=== PATIENT | female | born 1955 | race Caucasian/White ===

== ENCOUNTER 2020-10-09 13:04 | Outpatient (REF) | payer MEDICARE, SELFPAY ==
[2020-10-09 13:59] LABS: MANUAL DIFF FLAG NO
[2020-10-09 14:16] LABS: Basophils Percent Auto 0.6 % (0-2); Eosinophils Absolute Auto 0.2 X10*3/uL (0.0-0.4); Eosinophils Percent Auto 2.5 % (0-4); Hemoglobin 11.9 g/dl (12.0-16.0); Imm Gran Abs Auto 0.03 X10*3/uL (0.00-0.03); Imm Gran Pct Auto 0.5 % (0.0-0.4); Lymphocytes Absolute Auto 1.9 X10*3/uL (1.2-4.9); Mean Corpuscular HGB Conc 33.1 g/dl (31.0-35.0); Mean Corpuscular Hemoglobin 30.9 pg (27.0-33.0); Mean Corpuscular Volume 93.5 fL (80-98); Mean Platelet Volume 10.3 fL (9.4-12.3); Monocytes Absolute Auto 0.8 X10*3/uL (0.1-1.2); Monocytes Percent Auto 11.6 % (2-11); Neutrophils Absolute Auto 3.5 X10*3/uL (2.0-8.3); Neutrophils Percent Auto 54.8 % (45-73); Platelet Count 257 X10*3/uL (160-400); Red Blood Count 3.85 X10*6/uL (4.20-5.50); Red Cell Distribution Width 12.6 % (11.0-16.0); White Blood Count 6.4 X10*3/uL (4.8-10.8)
[2020-10-09 14:41] LABS: Anion Gap 11 (12-20); Blood Urea Nitrogen 16 mg/dL (9-16); Calcium 9.4 mg/dL (8.4-10.2); Carbon Dioxide 33 mmol/L (22-29); Chloride 104 mmol/L (96-108); Cholesterol 138 mg/dL; Estimated Glomerular Filt Rate > 60; Glucose Fasting 94 mg/dL (60-99); HDL Cholesterol 54 mg/dL; LDL Cholesterol Calculated 68 mg/dl; Potassium 4.6 mmol/L (3.3-5.1); Sodium 143 mmol/L (135-145); Triglycerides 84 mg/dL
== END 2020-10-09 13:05 | disposition home or self-care (01) ==
LOC: HO.HMGCLDS 13:04
PROVIDERS: PCP Internal Medicine; Visit Provider Internal Medicine
DX: E78.9 Disorder of lipoprotein metabolism, unspecified (principal); F33.9 Major depressive disorder, recurrent, unspecified; H53.8 Other visual disturbances; G62.9 Polyneuropathy, unspecified; J44.9 Chronic obstructive pulmonary disease, unspecified
CPT/HCPCS: 36415; 80048; 80061; 85025

== ENCOUNTER 2020-11-22 10:31 | Outpatient (REF) | payer MEDICARE, SELFPAY ==
[2020-11-22 14:35] LABS: Anion Gap 13 (12-20); Blood Urea Nitrogen 16 mg/dL (9-16); Calcium 10.2 mg/dL (8.4-10.2); Carbon Dioxide 31 mmol/L (22-29); Chloride 103 mmol/L (96-108); Cholesterol 160 mg/dL; Estimated Glomerular Filt Rate > 60; Glucose Random 88 mg/dL (60-115); HDL Cholesterol 60 mg/dL; LDL Cholesterol Calculated 85 mg/dl; Potassium 4.7 mmol/L (3.3-5.1); Sodium 142 mmol/L (135-145); Triglycerides 79 mg/dL
== END 2020-11-22 10:32 | disposition home or self-care (01) ==
LOC: HO.HMGCLDS 10:31
PROVIDERS: PCP Internal Medicine; Visit Provider Internal Medicine Cardiovascular Disease
DX: I25.2 Old myocardial infarction (principal)
CPT/HCPCS: 36415; 80048; 80061

== ENCOUNTER → 2020-11-25 10:58 | Outpatient (BNVA) | payer MEDICARE, SELFPAY | PROVIDERS: PCP Internal Medicine; Visit Provider Internal Medicine | DX: J44.9 Chronic obstructive pulmonary disease, unspecified (principal); J30.9 Allergic rhinitis, unspecified; Z87.891 Personal history of nicotine dependence; Z79.899 Other long term (current) drug therapy | CPT/HCPCS: 99202 ==

== ENCOUNTER 2020-12-23 09:39 | Outpatient (REF) | payer MEDICARE, SELFPAY ==
--- NOTE | ~2020-12-23 | CT_ITS ---
EXAMINATION: CT CHEST SCREENING CLINICAL INFORMATION: Lung cancer screening COMPARISON: Previous CTA of the chest August 2016 and chest x-ray June 2017 TECHNIQUE: Multidetector volumetric CT imaging of the chest is performed without contrast using low dose technique. Additional 2D coronal and sagittal reformatted images and axial 3D maximum intensity projection (MIP) images are generated on the CT workstation. This CT examination was performed using dose optimization techniques as appropriate, variously including the following: *Automated exposure control *Adjustment of mA and/or kV according to patient size (this includes techniques or standardized protocols for targeted exams where dose is matched to indication/reason for exam; i.e. extremities or head) *Use of iterative reconstruction technique DLP: 48 mGy-cm FINDINGS: LUNGS: There is a 2 mm peripheral or subpleural left upper lobe nodule axial image 106 series 5. There is a 3 mm peripheral or subpleural left lower lobe nodule axial image 288 series 5. There are several adjacent clustered 1 to 2 mm left lower lobe peripheral nodules axial image 327 series 5. There is a 3 mm peripheral or subpleural right lower lobe nodule axial image 376 series 5. There is a 2 mm peripheral or subpleural left lower lobe nodule axial image 414 series 5. There is a 3 mm peripheral or subpleural right lower lobe nodule axial image 418 series 5. There is a 3 mm left lower lobe nodule axial image 422 series 5 and 426 series 5 There is a 3 mm peripheral or subpleural left lower lobe nodule axial image 333 series 5. These are similar to August 2016 exam.There is a 1 to 2 mm calcified right lower lobe nodule adjacent to the diaphragmatic pleural surface axial image 412 series 5. This is not definitely appreciated on previous CT from 2017. There is scarring or subsegmental atelectasis at the lung bases. No evidence of an endobronchial or endotracheal lesion is seen. MEDIASTINUM: There is coronary artery calcification. The mediastinum is otherwise normal. PLEURA: There is no pleural effusion. No pleural mass or thickening. AXILLA: No lymphadenopathy. UPPER ABDOMEN: Unremarkable OSSEOUS STRUCTURES: There is loss of height of the T6 T7 T9 and T11 vertebral body suggestive of mild compression fractures versus Schmorl's nodes. This is not appear appreciably changed from 2017 CTA. There are degenerative changes of the spine. CT/CT lung screening IMPRESSION: Small pulmonary nodules, largest measuring 3 mm. The majority are stable from previous CTA of the chest from 2017. Coronary artery calcification. ASSESSMENT: Lung-RADS category 2: Benign RECOMMENDATION: Annual low-dose chest CT follow-up recommended.
== END 2020-12-23 09:40 | disposition home or self-care (01) ==
LOC: HO.CT 09:39
PROVIDERS: Visit Provider Physician Assistant Medical
DX: J44.9 Chronic obstructive pulmonary disease, unspecified (principal); Z87.891 Personal history of nicotine dependence
CPT/HCPCS: 71271

== ENCOUNTER 2020-12-23 10:06 | Outpatient (REF) | payer MEDICARE, SELFPAY ==
--- NOTE | 2020-12-23 17:02 | PFT_ITS ---
INDICATION: COPD. SPIROMETRY: The FEV1 to FVC of 55% with an FEV1 of 1.57 L which is 54% predicted, an FVC of 2.83 L which is 74% predicted. There was a significant response to bronchodilators noted. The patient also has significant small airways disease. Maximum voluntary ventilation 48% predicted. LUNG VOLUMES: Total lung capacity 108% predicted with a residual volume of 157% predicted. DIFFUSION CAPACITY: DLCO 40% predicted. COMPARISONS: None. INTERPRETATION: There is an obstructive ventilatory defect consistent with moderate to severe COPD. The patient did have a significant response to bronchodilators noted and also has significant small airways disease. There is a moderate to severe decrease in the maximum voluntary ventilation secondary to deconditioning and also worsening dynamic inspiratory capacity. Lung volumes with significant air trapping due to the COPD. The patient does have a severe diffusion impairment secondary to emphysema and all other parenchymal lung conditions should be considered. Correction for hemoglobin is warranted. MD YVES Worthington/MODEliza / [phone]
== END 2020-12-23 10:07 | disposition home or self-care (01) ==
LOC: HO.RESP 10:06
PROVIDERS: PCP Internal Medicine; Visit Provider Internal Medicine
DX: J44.9 Chronic obstructive pulmonary disease, unspecified (principal); Z87.891 Personal history of nicotine dependence
CPT/HCPCS: 94060; 94727; 94729; 99212

== ENCOUNTER 2021-01-17 08:17 | Outpatient (REF) | payer OTHER, SELFPAY ==
--- NOTE | ~2021-01-17 | MM_ITS ---
EXAMINATION: BONE DENSITOMETRY CLINICAL INDICATION: Osteopenia. COMPARISON: Baseline BD dated 07/29/2007. TECHNIQUE: Using a [employer] DXA System (software version: 13.1) manufactured by [employer], dual-energy x-ray absorptiometry was performed of the lumbar spine and left hip. The images are of good technical quality. Summary results are attached. FINDINGS: AP SPINE L1-L2 (excluding L3 and L4): The data of L1-L4 has been changed to exclude the L3 and L4 vertebral bodies, because degenerative changes at these levels may cause overestimation of lumbar spine density. Current: BMD 0.891 g/cm2, Z-score -0.9, T-score -2.3, osteopenia, 3.3% decrease from baseline (<5% change is not significant). Baseline: BMD 0.921 g/cm2. LEFT FEMUR, NECK: Current: BMD 0.475 g/cm2, Z-score -2.7, T-score -4.1, osteoporosis. Baseline: BMD 0.779 g/cm2. LEFT FEMUR, TOTAL: Current: BMD 0.487 g/cm2, Z-score -3.0, T-score -4.1, osteoporosis, 34.9% decrease from baseline (<5% change is not significant). Baseline: BMD 0.748 g/cm2. IDENTIFIED RISK FACTORS: Menopause, history of fracture (adult). HISTORY OF FRACTURE: Wrist, hip, trauma. MEDICATIONS: Calcium, vitamin D. MM/XR DEXA axial skeleton IMPRESSION: 1. DIAGNOSIS: Osteoporosis based on the lowest T-score value of -4.1 in the femur neck and total femur applying World Health Organization criteria. 2. 10-YEAR FRACTURE RISK PREDICTION, FRAX: According to the guidelines, FRAX calculation should only be performed on patients in the osteopenia bone density category. Therefore, FRAX was not performed on this patient. 3. Treatment Recommendations: NOF guidelines recommend consideration for treatment in postmenopausal women and men age 50 and older presenting with the following: -A hip or vertebral (clinical or morphometric) fracture. -T-score less than or equal to -2.5 at the femoral neck or spine after appropriate evaluation to exclude secondary causes. -Low bone mass at the hip or spine and a 10-year fracture probability by FRAX of greater than or equal to 3% for hip fracture or greater than or equal to 20% for major osteoporotic fracture based on the [place] adapted WHO algorithm. 4. Other Recommendations: All treatment decisions require clinical judgment and consideration of individual patient factors, including patient preferences, comorbidities, previous drug use, risk factors not captured in the FRAX model (e.g. frailty, falls, vitamin D deficiency, increased bone turnover, interval significant decline in bone density) and possible under or overestimation of fracture risk by FRAX. Additional medical evaluation for secondary cause of low bone mineral density may be appropriate. FUTURE SCAN RECOMMENDATION: People with diagnosed cases of osteoporosis or at high risk for fracture should have regular bone mineral density tests. For patients eligible for Medicare, routine testing is allowed once every 2 years. The testing frequency can be increased to one year for patients who have rapidly progressing disease, those who are receiving or discontinuing medical therapy to restore bone mass, or have additional risk factors.
--- NOTE | ~2021-01-17 | MM_ITS ---
EXAMINATION: MM SCREENING DIGITAL BREAST TOMOSYNTHESIS, BILATERAL CLINICAL INFORMATION: Screening. Asymptomatic. The lifetime risk of breast cancer based on the Tyrer-Cuzick Model is 4%. COMPARISON: Mammography: 01/12/2019, 11/25/2017, 03/13/2011, 07/03/2010 TECHNIQUE: Digital breast tomosynthesis is performed in both the craniocaudal and mediolateral oblique views along with computer-aided detection (CAD). Synthesized 2D images are generated from the tomosynthesis. FINDINGS: The breasts are heterogeneously dense, which may obscure small masses (ACR BI-RADS breast composition Category c). There are no significant masses, abnormal calcifications, or other abnormalities. There is no developing density or interval mass or architectural abnormality. Biopsy clip marker again seen upper outer quadrant left breast. The axilla and skin contours are unremarkable. MM/MM tomosynthesis screening BI IMPRESSION: No mammographic evidence of malignancy. ASSESSMENT: BI-RADS 1: Negative RECOMMENDATION: Routine annual mammography screening. This patient's information was entered into a reminder system with a target due date for their next mammogram.
== END 2021-01-17 08:18 | disposition home or self-care (01) ==
LOC: HO.MAMMO 08:17
PROVIDERS: PCP Internal Medicine; Visit Provider Internal Medicine
DX: Z12.31 Encounter for screening mammogram for malignant neoplasm of breast (principal); Z13.820 Encounter for screening for osteoporosis; M85.80 Other specified disorders of bone density and structure, unspecified site; Z78.0 Asymptomatic menopausal state
CPT/HCPCS: 77063; 77067; 77080

== ENCOUNTER → 2021-05-07 12:22 | Outpatient (BNVA) | payer MEDICARE, SELFPAY | PROVIDERS: PCP Internal Medicine; Visit Provider Internal Medicine | DX: M81.0 Age-related osteoporosis without current pathological fracture (principal); E04.9 Nontoxic goiter, unspecified; E55.9 Vitamin D deficiency, unspecified | CPT/HCPCS: 99202 ==

== ENCOUNTER 2021-05-07 13:41 | Outpatient (REF) | payer MEDICARE, SELFPAY ==
[2021-05-07 15:01] LABS: Alanine Aminotransferase 20 U/L (0-31); Albumin Level 4.4 g/dL (3.5-5.0); Alkaline Phosphatase 65 U/L (39-117); Anion Gap 11 (12-20); Aspartate Amino Transferase 25 U/L (5-31); Bilirubin Total 0.5 mg/dL (0.0-1.0); Blood Urea Nitrogen 21 mg/dL (9-16); Calcium 10.5 mg/dL (8.4-10.2); Carbon Dioxide 32 mmol/L (22-29); Chloride 102 mmol/L (96-108); Estimated Glomerular Filt Rate > 60; Glucose Random 98 mg/dL (60-115); Phosphorus 4.5 mg/dL (2.7-4.5); Potassium 4.9 mmol/L (3.3-5.1); Sodium 140 mmol/L (135-145); Total Protein 7.3 g/dL (6.5-8.0)
[2021-05-07 15:23] LABS: Free T4 (Free Thyroxine) 0.91 ng/dL (0.71-1.85); Thyroid Stimulating Hormone 2.67 uIU/mL (0.32-4.0); Vitamin D 25-OH Total 48.3 ng/mL (>30)
[2021-05-09 09:32] LABS: Calcium (PTHI) 10.7 mg/dL (8.6-10.4); PTHI 22 pg/mL (14-64)
[2021-05-12 10:11] LABS: Alkaline Phosphatase Bone 10.7 mcg/L (5.6-29.0)
[2021-05-12 13:52] LABS: Prot Elec - Albumin 4.3 g/dL (3.8-4.8); Prot Elec - Alpha1 0.3 g/dL (0.2-0.3); Prot Elec - Alpha2 0.8 g/dL (0.5-0.9); Prot Elec - Beta 1 0.5 g/dL (0.4-0.6); Prot Elec - Beta 2 0.4 g/dL (0.2-0.5); Prot Elec - Total Protein 7.3 g/dL (6.1-8.1)
== END 2021-05-07 13:42 | disposition home or self-care (01) ==
LOC: HO.LAB 13:41
PROVIDERS: PCP Internal Medicine; Visit Provider Internal Medicine
DX: M81.0 Age-related osteoporosis without current pathological fracture (principal); E55.9 Vitamin D deficiency, unspecified
CPT/HCPCS: 36415; 80053; 82306; 83970; 84075; 84100; 84165; 84439; 84443

== ENCOUNTER 2021-05-18 | Outpatient (REF) | payer MEDICARE, SELFPAY ==
[2021-05-24 15:47] LABS: N-Telopeptide 47 (see note); NTXCreaRU 112 mg/dL (20-275)
== END 2021-05-18 00:01 | disposition home or self-care (01) ==
LOC: HO.LNP
PROVIDERS: Visit Provider Internal Medicine
DX: M81.0 Age-related osteoporosis without current pathological fracture (principal)
CPT/HCPCS: 82523

== ENCOUNTER 2021-05-20 12:43 | Outpatient (REF) | payer MEDICARE, SELFPAY ==
[2021-05-20 13:07] LABS: Total Volume 24 Hour Urine 1900 mL
[2021-05-20 13:16] LABS: Creatinine, 24Hr Urine 0.6 G/Day (1.0-2.0)
[2021-05-22 19:37] LABS: Calcium, 24 Hr Urine 154 mg/24 h; Calcium/Creatinine Ratio 261 mg/g creat (30-275); Creatinine 24Hr Urine 0.59 g/24 h (0.50-2.15)
== END 2021-05-20 12:44 | disposition home or self-care (01) ==
LOC: HO.LNP 12:43
PROVIDERS: Visit Provider Internal Medicine
DX: M81.0 Age-related osteoporosis without current pathological fracture (principal)
CPT/HCPCS: 82340; 82570

== ENCOUNTER 2021-06-10 09:52 | Outpatient (REF) | payer MEDICARE, SELFPAY ==
--- NOTE | ~2021-06-10 | US_ITS ---
EXAMINATION: US THYROID CLINICAL INFORMATION: Vitamin D deficiency, unspecified COMPARISON: Neck CT most recent August 2016 TECHNIQUE: Linear transducer santana-scale and color Doppler examination with attention to the region of the thyroid. FINDINGS: SIZE: Measurements of the thyroid lobes and nodules are given in sagittal, anteroposterior and transverse dimensions respectively. Right Thyroid Lobe: 4.14 x 1.60 x 1.0 cm, volume 3.5 mL. Parenchyma: The gland echotexture is homogeneous. Thyroid vascularity is normal. Left Thyroid Lobe: 3.86 x 1.54 x 1.25 cm, volume 3.9 mL. Parenchyma: The gland echotexture is homogeneous. Thyroid vascularity is normal. Isthmus: 0.40 cm in maximum AP dimension. Estimated total number of nodules greater than or equal to 1 cm: 0. Track Announcer nodules are described as follows: 1. Location: Right mid. Size: 0.38 x 0.28 x 0.29 cm, volume 0.02 mL. Nodule characteristics: Composition: Spongiform (0). Echogenicity: Shape: Margins: Echogenic Foci: ACR TI-RADS total points: 0 ACR TI-RADS category: 1 NODES: No lymphadenopathy is seen in the tissue surrounding the thyroid gland. US/US thyroid IMPRESSION: Small 3 x 4 mm right thyroid nodule. Otherwise unremarkable exam. According to ACR TI RADS criteria, no imaging follow-up is recommended. ACR TI-RADS RECOMMENDATION REFERENCE: Ultrasound-guided fine-needle aspiration, followup ultrasound, no further follow up. * TR1 (0 point) and TR 2 (2 points): No FNA or follow up * TR3 (3 points): FNA if more than or equal to 2.5 cm in maximum dimension, followup ultrasound in 1, 3 and 5 years if 1.5 to 2.4 cm in maximum dimension. * TR4 (4-6 points): FNA if more than or equal to 1.5 cm in maximum dimension, followup ultrasound in 1, 2, 3 and 5 years if 1 to 1.4 cm in maximum dimension. * TR5 (more than or equal to 7 points): FNA if more than or equal to 1 cm in maximum dimension, followup ultrasound every year for 5 years if 0.5 to 0.9 cm in maximum dimension. * TR3, TR4 or TR5 nodules that are below the size threshold for follow up receive no follow up.
== END 2021-06-10 09:53 | disposition home or self-care (01) ==
LOC: HO.HMGCX 09:52
PROVIDERS: PCP Internal Medicine; Visit Provider Internal Medicine
DX: E04.9 Nontoxic goiter, unspecified (principal); E55.9 Vitamin D deficiency, unspecified
CPT/HCPCS: 76536

== ENCOUNTER 2021-06-18 09:21 | Outpatient (REF) | payer MEDICARE, SELFPAY ==
--- NOTE | ~2021-06-18 | MM_ITS ---
EXAMINATION: BONE DENSITOMETRY CLINICAL INDICATION: Hyperparathyroidism. COMPARISON: Bone densitometry 01/17/2021. TECHNIQUE: Using a [employer] DXA System (software version: 13.1) manufactured by [employer], dual-energy x-ray absorptiometry was performed of the left forearm radius 33%. The images are of good technical quality. Summary results are attached. FINDINGS: LEFT FOREARM RADIUS 33%: BMD 0.792 g/cm2, Z-score 0.3, T-score -1.1, osteopenia. Prior: Forearm not previously measured. IDENTIFIED RISK FACTORS: Menopause, height loss, family history (parent hip fracture), history of fracture (adult), hyperparathyroid, osteoporosis, rheumatoid arthritis. HISTORY OF FRACTURE: Wrist, hip. MEDICATIONS: Calcium or multivitamin. Vitamin D. MM/XR DEXA appendicular skeleton IMPRESSION: Osteopenia in forearm based on the T-score value of -1.1 in the forearm radius 33% applying World Health Organization criteria. COMMENT: The bone densitometry exam 01/17/2021 showed osteoporosis based on the lowest T-score value of -4.1 in the total femur and femur neck applying World Health Organization criteria.
== END 2021-06-18 09:22 | disposition home or self-care (01) ==
LOC: HO.MAMMO 09:21
PROVIDERS: Visit Provider Internal Medicine
DX: Z13.820 Encounter for screening for osteoporosis (principal); M85.80 Other specified disorders of bone density and structure, unspecified site; E21.3 Hyperparathyroidism, unspecified; Z78.0 Asymptomatic menopausal state; Z87.81 Personal history of (healed) traumatic fracture; Z79.899 Other long term (current) drug therapy
CPT/HCPCS: 77081

== ENCOUNTER → 2021-07-07 14:54 | Outpatient (BNVA) | payer MEDICARE, SELFPAY | PROVIDERS: PCP Internal Medicine; Visit Provider Internal Medicine | DX: Z13.89 Encounter for screening for other disorder (principal) | CPT/HCPCS: Q3014 ==

== ENCOUNTER 2021-07-14 14:43 | Outpatient (REF) | payer MEDICARE, SELFPAY ==
[2021-07-14 16:38] LABS: Alanine Aminotransferase 20 U/L (0-31); Albumin Level 4.3 g/dL (3.5-5.0); Alkaline Phosphatase 59 U/L (39-117); Anion Gap 13 (12-20); Aspartate Amino Transferase 27 U/L (5-31); Bilirubin Total 0.6 mg/dL (0.0-1.0); Blood Urea Nitrogen 16 mg/dL (9-16); Calcium 10.8 mg/dL (8.4-10.2); Carbon Dioxide 32 mmol/L (22-29); Chloride 101 mmol/L (96-108); Estimated Glomerular Filt Rate > 60; Glucose Random 87 mg/dL (60-115); Phosphorus 4.4 mg/dL (2.7-4.5); Potassium 5.4 mmol/L (3.3-5.1); Sodium 141 mmol/L (135-145); Total Protein 6.9 g/dL (6.5-8.0)
[2021-07-14 16:59] LABS: Free T4 (Free Thyroxine) 0.94 ng/dL (0.71-1.85); Thyroid Stimulating Hormone 2.52 uIU/mL (0.32-4.0); Vitamin D 25-OH Total 46.5 ng/mL (>30)
[2021-07-15 15:56] LABS: Calcium (PTHI) 10.5 mg/dL (8.6-10.4); PTHI 23 pg/mL (14-64)
== END 2021-07-14 14:44 | disposition home or self-care (01) ==
LOC: HO.HMGCLDS 14:43
PROVIDERS: PCP Internal Medicine; Visit Provider Internal Medicine
DX: M81.0 Age-related osteoporosis without current pathological fracture (principal); E55.9 Vitamin D deficiency, unspecified; E21.3 Hyperparathyroidism, unspecified
CPT/HCPCS: 36415; 80053; 82306; 83970; 84100; 84439; 84443

== ENCOUNTER 2021-08-04 15:11 | Outpatient (REF) | payer MEDICARE, SELFPAY ==
[2021-08-04 17:09] LABS: Anion Gap 11 (12-20); Blood Urea Nitrogen 15 mg/dL (9-16); Calcium 10.4 mg/dL (8.4-10.2); Carbon Dioxide 34 mmol/L (22-29); Chloride 103 mmol/L (96-108); Estimated Glomerular Filt Rate > 60; Glucose Random 86 mg/dL (60-115); Sodium 143 mmol/L (135-145)
== END 2021-08-04 15:12 | disposition home or self-care (01) ==
LOC: HO.HMGCLDS 15:11
PROVIDERS: PCP Internal Medicine; Visit Provider Internal Medicine
DX: M81.0 Age-related osteoporosis without current pathological fracture (principal)
CPT/HCPCS: 36415; 80048

== ENCOUNTER → 2021-08-25 08:58 | Outpatient (BNVA) | payer MEDICARE, SELFPAY | PROVIDERS: PCP Internal Medicine; Visit Provider Internal Medicine | CPT/HCPCS: Q3014 ==

== ENCOUNTER 2021-10-29 13:28 | Outpatient (REF) | payer MEDICARE, SELFPAY ==
[2021-10-29 17:31] LABS: Alanine Aminotransferase 22 U/L (0-31); Albumin Level 4.2 g/dL (3.5-5.0); Alkaline Phosphatase 73 U/L (39-117); Anion Gap 12 (12-20); Aspartate Amino Transferase 23 U/L (5-31); Bilirubin Total 0.4 mg/dL (0.0-1.0); Blood Urea Nitrogen 22 mg/dL (9-16); Calcium 10.1 mg/dL (8.4-10.2); Carbon Dioxide 28 mmol/L (22-29); Chloride 102 mmol/L (96-108); Cholesterol 153 mg/dL; Estimated Glomerular Filt Rate > 60; Glucose Fasting 85 mg/dL (60-99); HDL Cholesterol 47 mg/dL; LDL Cholesterol Calculated 60 mg/dl; Potassium 5.1 mmol/L (3.3-5.1); Sodium 137 mmol/L (135-145); Total Protein 7.1 g/dL (6.5-8.0); Triglycerides 232 mg/dL
== END 2021-10-29 13:29 | disposition home or self-care (01) ==
LOC: HO.HMGCLDS 13:28
PROVIDERS: Visit Provider Internal Medicine
DX: Z00.01 Encounter for general adult medical examination with abnormal findings (principal); F33.9 Major depressive disorder, recurrent, unspecified; G62.9 Polyneuropathy, unspecified; J45.909 Unspecified asthma, uncomplicated; M81.0 Age-related osteoporosis without current pathological fracture; E78.9 Disorder of lipoprotein metabolism, unspecified
CPT/HCPCS: 36415; 80053; 80061

== ENCOUNTER 2021-11-12 12:08 | Outpatient (REF) | payer MEDICARE, SELFPAY ==
--- NOTE | ~2021-11-12 | XR_ITS ---
EXAMINATION: X-RAY LEFT ANKLE X-RAY LEFT FOOT CLINICAL INFORMATION: Injury COMPARISON: None TECHNIQUE: Ankle 3 views. Foot 3 views. FINDINGS: Ankle: No visible acute fracture or dislocation. Ankle mortise is congruent. Talar dome, anterior process of the calcaneus intact. Dorsal spurring at the talonavicular joint. Mild lateral ankle soft tissue swelling. Bones appear osteopenic. Foot: No visible acute fracture or dislocation. Alignment is anatomic. No significant arthropathy seen. No abnormal soft tissue calcification. XR/XR foot LT 2V IMPRESSION: No radiographically evident acute fracture..
--- NOTE | ~2021-11-12 | XR_ITS ---
EXAMINATION: X-RAY LEFT ANKLE X-RAY LEFT FOOT CLINICAL INFORMATION: Injury COMPARISON: None TECHNIQUE: Ankle 3 views. Foot 3 views. FINDINGS: Ankle: No visible acute fracture or dislocation. Ankle mortise is congruent. Talar dome, anterior process of the calcaneus intact. Dorsal spurring at the talonavicular joint. Mild lateral ankle soft tissue swelling. Bones appear osteopenic. Foot: No visible acute fracture or dislocation. Alignment is anatomic. No significant arthropathy seen. No abnormal soft tissue calcification. XR/XR ankle LT 2V IMPRESSION: No radiographically evident acute fracture..
== END 2021-11-12 12:09 | disposition home or self-care (01) ==
LOC: HO.HMGCX 12:08
PROVIDERS: PCP Internal Medicine; Visit Provider Internal Medicine
DX: S99.922A Unspecified injury of left foot, initial encounter (principal); S99.912A Unspecified injury of left ankle, initial encounter
CPT/HCPCS: 73600; 73620

== ENCOUNTER 2021-12-22 09:26 | Outpatient (REF) | payer MEDICARE, SELFPAY ==
[2021-12-22 16:56] LABS: Alanine Aminotransferase 23 U/L (0-31); Albumin Level 4.3 g/dL (3.5-5.0); Alkaline Phosphatase 73 U/L (39-117); Anion Gap 12 (12-20); Aspartate Amino Transferase 23 U/L (5-31); Bilirubin Total 0.4 mg/dL (0.0-1.0); Blood Urea Nitrogen 14 mg/dL (9-16); Carbon Dioxide 29 mmol/L (22-29); Chloride 102 mmol/L (96-108); Estimated Glomerular Filt Rate > 60; Glucose Random 72 mg/dL (60-115); Phosphorus 4.5 mg/dL (2.7-4.5); Potassium 5.4 mmol/L (3.3-5.1); Sodium 138 mmol/L (135-145); Total Protein 7.4 g/dL (6.5-8.0)
[2021-12-22 17:17] LABS: Vitamin D 25-OH Total 48.8 ng/mL (>30)
[2021-12-23 15:42] LABS: PTHI 52 pg/mL (16-77)
== END 2021-12-22 09:27 | disposition home or self-care (01) ==
LOC: HO.HMGCLDS 09:26
PROVIDERS: PCP Internal Medicine; Visit Provider Internal Medicine
DX: M81.0 Age-related osteoporosis without current pathological fracture (principal); E55.9 Vitamin D deficiency, unspecified
CPT/HCPCS: 36415; 80053; 82306; 83970; 84100; Q3014

== ENCOUNTER 2021-12-26 08:11 | Outpatient (REF) | payer MEDICARE, SELFPAY ==
[2021-12-26 12:07] LABS: Alanine Aminotransferase 17 U/L (0-31); Alkaline Phosphatase 69 U/L (39-117); Anion Gap 13 (12-20); Aspartate Amino Transferase 20 U/L (5-31); Bilirubin Total 0.4 mg/dL (0.0-1.0); Blood Urea Nitrogen 14 mg/dL (9-16); Calcium 9.6 mg/dL (8.4-10.2); Carbon Dioxide 28 mmol/L (22-29); Chloride 102 mmol/L (96-108); Estimated Glomerular Filt Rate > 60; Glucose Random 98 mg/dL (60-115); Potassium 4.9 mmol/L (3.3-5.1); Sodium 138 mmol/L (135-145); Total Protein 6.8 g/dL (6.5-8.0)
== END 2021-12-26 08:12 | disposition home or self-care (01) ==
LOC: HO.HMGCLDS 08:11
PROVIDERS: Absent Provider Internal Medicine; PCP Internal Medicine; Visit Provider Internal Medicine
DX: M81.0 Age-related osteoporosis without current pathological fracture (principal)
CPT/HCPCS: 36415; 80053

== ENCOUNTER → 2022-06-04 10:33 | Outpatient (BNVA) | payer MEDICARE, SELFPAY | PROVIDERS: PCP Internal Medicine; Visit Provider Internal Medicine | DX: J45.40 Moderate persistent asthma, uncomplicated (principal); J44.9 Chronic obstructive pulmonary disease, unspecified; J30.9 Allergic rhinitis, unspecified; Z87.891 Personal history of nicotine dependence | CPT/HCPCS: 99212 ==

== ENCOUNTER 2022-06-20 15:44 | Outpatient (REF) | payer MEDICARE, SELFPAY ==
[2022-06-20 17:32] LABS: Influenza A PCR NEGATIVE (Negative); Influenza B PCR NEGATIVE (Negative); Resp Syncy Virus RNA Qual PCR NEGATIVE (Negative); SARS COV2 PCR INHOUSE NEGATIVE (Negative)
== END 2022-06-20 15:45 | disposition home or self-care (01) ==
LOC: HO.LNP 15:44
PROVIDERS: Visit Provider Physician Assistant
DX: Z20.822 Contact with and (suspected) exposure to COVID-19 (principal); B34.9 Viral infection, unspecified
CPT/HCPCS: 0241U

== ENCOUNTER 2022-08-05 08:29 | Outpatient (REF) | payer MEDICARE, SELFPAY ==
--- NOTE | ~2022-08-05 | MM_ITS ---
EXAMINATION: MM SCREENING DIGITAL BREAST TOMOSYNTHESIS, BILATERAL CLINICAL INFORMATION: Screening. Asymptomatic. The lifetime risk of breast cancer based on the Tyrer-Cuzick Model is 5%. COMPARISON: Mammography: 01/17/2021, 01/12/2019, 11/25/2017 TECHNIQUE: Digital breast tomosynthesis is performed in both the craniocaudal and mediolateral oblique views along with computer-aided detection (CAD). Synthesized 2D images are generated from the tomosynthesis. FINDINGS: The breasts are heterogeneously dense, which may obscure small masses (ACR BI-RADS breast composition Category c). Parenchymal pattern is similar to prior studies and there is no developing density or interval mass or architectural abnormality. No abnormal calcifications. Biopsy clip marker again seen mid upper outer left breast. The axilla and skin contours are unremarkable. No significant changes. MM/MM tomosynthesis screening BI IMPRESSION: No mammographic evidence of malignancy. ASSESSMENT: BI-RADS 1: Negative RECOMMENDATION: Routine annual mammography screening. This patient's information was entered into a reminder system with a target due date for their next mammogram.
== END 2022-08-05 08:30 | disposition home or self-care (01) ==
LOC: HO.MAMMO 08:29
PROVIDERS: PCP Internal Medicine; Visit Provider Internal Medicine
DX: Z12.31 Encounter for screening mammogram for malignant neoplasm of breast (principal)
CPT/HCPCS: 77063; 77067

== ENCOUNTER 2022-09-09 10:29 | Outpatient (REF) | payer MEDICARE, SELFPAY ==
[2022-09-09 11:24] LABS: MANUAL DIFF FLAG NO
[2022-09-09 11:32] LABS: Basophils Percent Auto 0.4 % (0-2); Eosinophils Absolute Auto 0.3 X10*3/uL (0.0-0.4); Eosinophils Percent Auto 4.9 % (0-4); Hematocrit 35.3 % (37.0-47.0); Hemoglobin 11.4 g/dl (12.0-16.0); Imm Gran Abs Auto 0.01 X10*3/uL (0.00-0.03); Imm Gran Pct Auto 0.2 % (0.0-0.4); Lymphocytes Absolute Auto 1.4 X10*3/uL (1.2-4.9); Lymphocytes Percent Auto 23.8 % (20-40); Mean Corpuscular HGB Conc 32.3 g/dl (31.0-35.0); Mean Corpuscular Hemoglobin 30.1 pg (27.0-33.0); Mean Corpuscular Volume 93.1 fL (80.0-98.0); Mean Platelet Volume 10.3 fL (9.4-12.3); Monocytes Absolute Auto 0.6 X10*3/uL (0.1-1.2); Monocytes Percent Auto 10.6 % (2-11); Neutrophils Absolute Auto 3.4 x10*3/uL (2.0-8.3); Neutrophils Percent Auto 60.1 % (45-73); Platelet Count 290 X10*3/uL (160-400); Red Blood Count 3.79 X10*6/uL (4.20-5.50); Red Cell Distribution Width 13.3 % (11.0-16.0); White Blood Count 5.7 X10*3/uL (4.8-10.8)
[2022-09-09 12:12] LABS: Alanine Aminotransferase 18 U/L (0-31); Alkaline Phosphatase 62 U/L (39-117); Anion Gap 16 (12-20); Aspartate Amino Transferase 23 U/L (5-31); Bilirubin Total 0.3 mg/dL (0.0-1.0); Blood Urea Nitrogen 18 mg/dL (9-16); Calcium 9.2 mg/dL (8.4-10.2); Carbon Dioxide 24 mmol/L (22-29); Chloride 107 mmol/L (96-108); Estimated Glomerular Filt Rate > 60; Glucose Random 106 mg/dL (60-115); Potassium 4.7 mmol/L (3.3-5.1); Sodium 142 mmol/L (135-145); Total Protein 6.4 g/dL (6.5-8.0)
[2022-09-10 05:48] LABS: LDL Cholesterol Direct 70 mg/dL (<100)
== END 2022-09-09 10:30 | disposition home or self-care (01) ==
LOC: HO.HMGCLDS 10:29
PROVIDERS: PCP Internal Medicine; Visit Provider Internal Medicine
DX: E78.9 Disorder of lipoprotein metabolism, unspecified (principal); F33.9 Major depressive disorder, recurrent, unspecified; J45.909 Unspecified asthma, uncomplicated; M81.0 Age-related osteoporosis without current pathological fracture; N39.3 Stress incontinence (female) (male); I10 Essential (primary) hypertension
CPT/HCPCS: 36415; 80053; 83721; 85025

== ENCOUNTER 2023-02-20 14:10 | Outpatient (AMB) | payer MEDICARE, SELFPAY ==
--- NOTE | 2023-02-20 14:12 | AM.OFFWIN_ITS ---
Intake Vital Signs 02/20/23 14:13 Height 5 ft 8 in BP 132/78 Blood Pressure Location Lt brachial Position Sitting Pulse 65 Pulse Source Pulse Oximeter Temp 97.9 F Temp Source Temporal Artery Scan Pulse Oximetry (%) 99 Oxygen Delivery Method Room Air Intake Visit Reasons: EST/left knee pain Intake Note: pt is here for left knee pain due to fall. suspects she broken or sprained something Patient Tobacco Use Status: Former Tobacco user Quit Date: Over 3 years Allergies ENVIROMENTAL Allergy (Unknown, Uncoded 02/20/23 14:13) WHEEZING,COUGH Do you need a note to return to daycare/school/sports/work: No HPI HPI Comments History of Present Illness Details This is a 67-year-old female who presents to the office today for sick visit. Patient complaining of persistent left knee pain and some calf swelling following an injury that occurred 2 weeks ago. Patient states she tripped and fell while on a pool deck and landed on her left hand and left knee. Patient states her left hand was swollen and bruised, but this has resolved and she has no residual left hand pain. She states that her left knee is still painful, mostly with weight-bearing and ambulation. She denies any numbness/weakness/paresthesias of her extremities. She otherwise feels well without chest pain, shortness of breath, fever/chills, abdominal pain, or nausea/vomiting/diarrhea. 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 Brother No problems noted. Sister No problems noted. Son No problems noted. Daughter No problems noted. Social History Housing: Apartment Alcohol intake: former Year quit: 2017 Patient Tobacco Use Status: Former Tobacco user Quit Date: Over 3 years Tobacco use type: Cigarette Years Smoked: 45 (onset 16yo, quit ~2017) e-Cigarette/Vaping Use: Never Used Substance Use Type: Marijuana service: No Current occupational status: disabled Cognitive needs: No Hearing needs: No Vision needs: No Review of Systems Const All systems reviewed & are unremarkable except as noted in HPI and below Reports no additional complaints Eyes Reports no additional complaints ENT Reports no additional complaints Card Reports no additional complaints Resp Reports no additional complaints GI Reports no additional complaints Reports no additional complaints Musc Reports no additional complaints, Reports arthralgias and Reports joint swelling Skin/Breast Reports system reviewed and no additional complaints, except as documented Neuro Reports no additional complaints Psych Reports no additional complaints Endo Reports no additional complaints Genaro/Lymph Reports no additional complaints Aller/Immun Reports no additional complaints Physical Exam Vital Signs: Last Vital Signs Temp 97.9 F 02/20/23 14:13 Pulse 65 02/20/23 14:13 BP 132/78 02/20/23 14:13 Pulse Ox 99 02/20/23 14:13 Oxygen Delivery Method Room Air 02/20/23 14:13 Const General: cooperative, healthy appearing, no acute distress and well developed Orientation/consciousness: patient oriented x3 HEENT Head: Yes normal to inspection Ears: hearing grossly normal bilaterally General nose exam: Normal external nose present Face and sinus: Yes normal facial exam Mouth: Normal oral and palatal mucosa present Eyes General: appearance normal, both eyes and all related structures Pupils: Equal, round and reactive pupils present EOM: EOMs intact bilaterally Resp Effort & Inspection: normal respiratory effort and no respiratory distress Auscultation: clear to auscultation bilaterally Cardio Rate: regular rate Rhythm: regular rhythm Heart sounds: no gallops, no murmurs and no rubs Peripheral pulses: Peripheral pulses 2+ throughout GI Inspection: No distended Palpation (GI): Soft to palpation and nontender Auscultation: normal bowel sounds Skin General skin exam: no rashes or lesions noted Neuro General: patient oriented x3 Cranial nerves: Yes CN's II-XII intact bilaterally and Yes Equal, round and reactive pupils present Gait exam (Neuro): Normal gait present Motor exam (neuro): 5/5 motor strength present throughout Extrem Other: Tenderness to deep palpation of the lateral joint space of the left knee. No significant joint effusion or ecchymosis noted. Patient has full range of motion of the left knee with some pain. No erythema of the left knee. Her left calf is greater in circumference when compared to her right calf. No tenderness to palpation of the calf. Negative Homans sign. General: Yes full ROM Psych Appearance: grossly normal Mental Status: mental status grossly normal Assessment & Plan Assessment & Plan (1) Right knee pain: Code(s): M25.561 - Pain in right knee Plan: This is a 67-year-old female who presents to the office with left knee pain following an injury that occurred 2 weeks ago. On physical examination, patient has tenderness to deep palpation of the lateral joint space of the left knee without joint effusion or ecchymosis. History and physical most consistent with contusion versus fracture of the right knee. Septic arthritis is unlikely at this time given no systemic symptoms, fever/chills, or erythema of the knee and she has full range of motion of the knee. X-ray of the right knee was obtained to evaluate for foreign body versus fracture. Recommend rest/activity modification, ice to the area, compression and elevation of the extremity. Continue with acetaminophen/ibuprofen for pain management as long as patient has no medical contraindications. Patient was instructed to take 600-800 mg of ibuprofen 3 times daily to help with inflammation. Patient was advised to follow-up year ago to there or go to the emergency room if she were to develop persistent/worsening symptoms, swelling of the right knee, erythema of the r ight knee, or systemic symptoms including fevers or chills. Patient verbalized understanding and is agreeable with the plan. (2) Calf swelling: Code(s): M79.89 - Other specified soft tissue disorders Plan: Of note, the left calf is greater in circumference than the right calf. Negative Crow sign. DVT cannot be ruled out. Doppler ultrasound of the left lower extremity was ordered to rule out DVT but unfortunately ultrasound is not available today. I recommended patient proceed directly to the emergency room for an ultrasound to rule out DVT but patient declines at this time. Patient is alert and oriented x4 and she has the medical competence to make medical decisions for herself. I explained that DVT can travel to her lungs and cause a pulmonary embolism, which could be detrimental. Patient still declines going to the emergency room. Patient agrees to go directly to the emergency room if she were to develop worsening left calf swelling or calf pain. Patient verbalized understanding and is agreeable with the plan. Plan Orders: Orders US venous duplex LE LT Today M79.89 - Other specified soft tissue disorders XR knee LT 2V Today M25.569 - Pain in unspecified knee Coding Level of Care Code Est Pt Level 3 (86345) Diagnoses Right knee pain M25.561 Calf swelling M79.89
[2023-02-20 14:13] VITALS: BP 132/78; PULSE 65; TEMP 36.6; O2SAT 99
== END 2023-02-20 14:40 | disposition home or self-care (01) ==
PROVIDERS: PCP Internal Medicine; Visit Provider Physician Assistant Medical
DX: M25.561 Pain in right knee (principal); M79.89 Other specified soft tissue disorders
CPT/HCPCS: 99051; 99213

== ENCOUNTER 2023-02-20 14:27 | Outpatient (REF) | payer MEDICARE, SELFPAY ==
--- NOTE | ~2023-02-20 | XR_ITS ---
EXAMINATION: XR KNEE, LEFT CLINICAL INFORMATION: Reason for Exam M25.569 - Pain in unspecified knee COMPARISON: None TECHNIQUE: 4 views of the knee FINDINGS: No acute fracture or dislocation. Moderate degenerative changes of the knee with loss of medial compartment joint space.. No joint effusion. Atherosclerotic vascular calcification. XR/XR knee LT 2V IMPRESSION: * No acute osseous abnormality. * Moderate degenerative changes of the knee.
== END 2023-02-20 14:28 | disposition home or self-care (01) ==
LOC: HO.HMGCX 14:27
PROVIDERS: Visit Provider Physician Assistant Medical
DX: M25.562 Pain in left knee (principal)
CPT/HCPCS: 73560

== ENCOUNTER 2023-03-17 09:34 | Outpatient (AMB) | payer MEDICARE, SELFPAY ==
[2023-03-17 09:35] VITALS: BP 128/76; PULSE 69; O2SAT 98; BMI 22.2
--- NOTE | 2023-03-17 09:35 | MHC.PC.OV ---
Vital Signs 03/17/23 09:35 Height 5 ft 8 in Weight 146 lb 3 oz BMI 22.2 BP 128/76 Blood Pressure Location Rt brachial Position Sitting Pulse 69 Pulse Source Pulse Oximeter Pulse Oximetry (%) 98 Oxygen Delivery Method Room Air Intake Visit Reasons: 3 month follow up after labs Allergies ENVIROMENTAL Allergy (Unknown, Uncoded 02/20/23 14:13) WHEEZING,COUGH Medication List - Last Reconciled 03/17/23 by Teressa Hendrix MD albuterol sulfate 90 mcg/actuation 2 puffs PO Q4-6H PRN aspirin (Adult Low Dose Aspirin) 81 mg PO .every other day atorvastatin 40 mg PO DAILY 90 days budesonide-formoterol 160-4.5 mcg/actuation (Symbicort) 2 puffs inhalation BID 30 days fluticasone propionate 50 mcg/actuation (Flonase Allergy Relief) 1 spray intranasal BID 30 days gabapentin 300 mg PO TID 90 days lisinopril 5 mg PO DAILY 90 days nz-nsr-dgsrd acid-lutein 400-250 mcg (Centrum Silver) 2 tabs PO DAILY venlafaxine ER 75 mg PO DAILY 90 days Tobacco use date assessed: 03/17/23 Fall risk assessment: 1 Fall in past year Last assessed Fall Risk: 03/17/23 Dental Screening Dental Screen Date: 03/17/23 Did you have a dental visit in the last 12 months?: No Did you have a dental problem in the last 6 months where you did not have access to dental care?: No Was dental information given to patient?: No HPI 3 month follow up after labs HPI Details Patient is 67-year-old female came in today for her regular follow-up appointment Patient was was to her labs for this visit she forgot Patient tells me that few days ago she bumped her 5th right toe with coffee table and it is still swollen However she is able to put pressure on it and is able to walk Patient is almost blind in her right eye and has a very blurry vision in the left eye secondary to retinal detachment. I have ordered x-ray of her toe it is healing gradually. She also have a lot of telangiectasias on her face with a history of alcoholism for years She should see Dermatology once a year for skin cancer screening Patient had colonoscopy June of 2019 she is due for repeat colonoscopy as per note Message sent to Gastroenterology to book appointment Cardiology Dr. Ewing Pulmonary Dr. Foley, Using all her inhalers reviews are through PCP office now as patient has not seen Dr. Foley in a while She is smoking marijuana, it helps her with her peripheral neuropathy Osteoporosis and goiter management through endocrinology [facility] Neuropathy:? 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 Brother No problems noted. Sister No problems noted. Son No problems noted. Daughter No problems noted. Social History Housing: Apartment Alcohol intake: former Year quit: 2017 Patient Tobacco Use Status: Former Tobacco user Quit Date: Over 3 years Tobacco use type: Cigarette Years Smoked: 45 (onset 16yo, quit ~2016) e-Cigarette/Vaping Use: Never Used Substance Use Type: Marijuana service: No Current occupational status: disabled Cognitive needs: No Hearing needs: No Vision needs: Yes Questionnaire PHQ-9 Over the last 2 weeks, how often have you been bothered by any of the following problems? 1. Little interest or pleasure in doing things: several days 2. Feeling down, depressed, or hopeless: not at all 3. Trouble falling or staying asleep, or sleeping too much: several days 4. Feeling tired or having little energy: several days 5. Poor appetite or overeating: several days 6. Feeling bad about yourself - or that you are a failure or have let yourself or your family down: not at all 7. Trouble concentrating on things, such as reading the newspaper or watching television: several days 8. Moving or speaking so slowly that other people could have noticed. Or the opposite - being so fidgety or restless that you have been moving around a lot more than usual: not at all 9. Thoughts that you would be better off or of hurting yourself in some way: not at all Total score: 5 Depression Screening Interpretation: Negative 00481 - PHQ-9 Billing: Yes Source: Developed by Drs. Estrada Fish, Kassidy Emery, Bossman Castellanos and colleagues, with an educational jaswant from [email or web address]. Thrive Questionnaire Date Thrive assessed: 09/09/22 AUDIT C Alcohol Use Questionnaire (AUDIT-C) 1. How often do you have a drink containing alcohol?: Never 3. How often do you have six or more drinks on one occasion?: Never Total Score: 0 Score Reviewed/Action Taken: Yes ZOLTAN-7 AMB Questionnaire ZOLTAN-7 Date ZOLTAN - 7 assessed: 09/09/22 Source: Developed by Drs. Estrada Fish, Kassidy Emery, Bossman Castellanos and colleagues, with an educational jaswant from [email or web address]. Review of Systems Const Denies chills and Denies fever(s) ENT Denies epistaxis and Denies nasal discharge Card Denies chest pain Resp Denies chest congestion, Denies cough and Denies hemoptysis GI Denies diarrhea and Denies nausea Skin/Breast Denies rash Neuro Reports no additional complaints Psych Reports no additional complaints Endo Reports no additional complaints Physical exam (Primary Care) Vital Signs: Last Vital Signs Pulse 69 03/17/23 09:35 BP 128/76 03/17/23 09:35 Pulse Ox 98 03/17/23 09:35 Oxygen Delivery Method Room Air 03/17/23 09:35 BMI result Body Mass Index 22.2 Tobacco/Smoking Status: Tobacco use Status Tobacco use date assessed 03/17/23 03/17/23 09:44 Patient Tobacco Use Status Former Tobacco user 03/17/23 09:37 Tobacco use type Cigarette 03/17/23 09:37 e-Cigarette/Vaping Use Never Used 03/17/23 09:37 Depression Screening Interpretation: Negative Thrive Assessment: Date of Thrive Assessment Date Thrive assessed 09/09/22 03/17/23 09:37 Const General: cooperative, comfortable and no acute distress Orientation/consciousness: patient oriented x3 HENMT Head: Yes normocephalic Eyes General: appearance normal, both eyes and all related structures Neck Neck: Yes supple Resp Effort & Inspection: normal respiratory effort, no cough and no stridor Cardio Rhythm: regular rhythm Heart sounds: S1 normal heart sound present and S2 normal heart sound present Skin General skin exam: turgor normal Neuro Other: Sensory grossly diminished feet, uses cane for ambulation General: patient oriented x3, tone normal and moves all extremities Extrem Right lower extremity: no edema Left lower extremity: no edema Ankle/foot/toe images: 1. Swollen tender to pressure Assessment and Plan Assessment & Plan (1) Peripheral neuropathy: Code(s): G62.9 - Polyneuropathy, unspecified Qualifiers: Peripheral neuropathy type: polyneuropathy, other Qualified Code(s): G62.89 - Other specified polyneuropathies (2) COPD (chronic obstructive pulmonary disease): Comment: Patient has moderately severe obstructive airway disorder. Has been quite stable with her current regimen. [place] : Symbicort 160-4.52 puffs b.i.d. regularly. ProAir HFA 2 puffs Q 6 hours p.r.n.. For Cough use cough drops as needed. Code(s): J44.9 - Chronic obstructive pulmonary disease, unspecified (3) Lipid disorder: Code(s): E78.9 - Disorder of lipoprotein metabolism, unspecified (4) Depression, major, recurrent: Code(s): F33.9 - Major depressive disorder, recurrent, unspecified Qualifiers: Active/Remission status: in full remission Qualified Code(s): F33.42 - Major depressive disorder, recurrent, in full remission (5) Stress incontinence: Code(s): N39.3 - Stress incontinence (female) (male) (6) Age related osteoporosis: Code(s): M81.0 - Age-related osteoporosis without current pathological fracture (7) Retinal detachment: Code(s): H33.20 - Serous retinal detachment, unspecified eye (8) Vitamin D deficiency: Code(s): E55.9 - Vitamin D deficiency, unspecified (9) Hypertension, essential: Code(s): I10 - Essential (primary) hypertension (10) Injury of toe on right foot: Code(s): S99.921A - Unspecified injury of right foot, initial encounter (11) Cerebellar atrophy: Comment: Evaluated by Neurology Code(s): G31.9 - Degenerative disease of nervous system, unspecified (12) Asthma, moderate: Comment: Patient has asthma/COPD overlap syndrome. TX: See under COPD Code(s): J45.909 - Unspecified asthma, uncomplicated Qualifiers: Asthma complication type: uncomplicated Asthma persistence: persistent Qualified Code(s): J45.40 - Moderate persistent asthma, uncomplicated (13) Allergic rhinitis: Comment: It is mild with to seasonal exacerbations. Using Flonase and Cetrizine 10 mg once a day only p.r.n.. Code(s): J30.9 - Allergic rhinitis, unspecified Plan Patient is 67-year-old female came in today for her regular follow-up appointment Patient was was to her labs for this visit she forgot Patient tells me that few days ago she bumped her 5th right toe with coffee table and it is still swollen However she is able to put pressure on it and is able to walk Patient is almost blind in her right eye and has a very blurry vision in the left eye secondary to retinal detachment. I have ordered x-ray of her toe it is healing gradually. She also have a lot of telangiectasias on her face with a history of alcoholism for years She should see Dermatology once a year for skin cancer screening Patient had colonoscopy June of 2019 she is due for repeat colonoscopy as per note Message sent to Gastroenterology to book appointment Cardiology Dr. Ewing Pulmonary Dr. Foley, Using all her inhalers reviews are through PCP office now as patient has not seen Dr. Foley in a while She is smoking marijuana, it helps her with her peripheral neuropathy Osteoporosis and goiter management through endocrinology [facility] Neuropathy:? Taking gabapentin For anxiety patient is on venlafaxine 75 mg Atorvastatin for lipid control Follow-up 3 months Orders: Orders Comprehensive Met. Panel Today E55.9 - Vitamin D deficiency, unspecified, E78.9 - Disorder of lipoprotein metabolism, unspecified, F33.9 - Major depressive disorder, recurrent, unspecified, G62.9 - Polyneuropathy, unspecified, H33.20 - Serous retinal detachment, unspecified eye, I10 - Essential (primary) hypertension, J44.9 - Chronic obstructive pulmonary disease, unspecified, M81.0 - Age-related osteoporosis without current pathological fracture, N39.3 - Stress incontinence (female) (male) Hemoglobin A1c Today E55.9 - Vitamin D deficiency, unspecified, E78.9 - Disorder of lipoprotein metabolism, unspecified, F33.9 - Major depressive disorder, recurrent, unspecified, G62.9 - Polyneuropathy, unspecified, H33.20 - Serous retinal detachment, unspecified eye, I10 - Essential (primary) hypertension, J44.9 - Chronic obstructive pulmonary disease, unspecified, M81.0 - Age-related osteoporosis without current pathological fracture, N39.3 - Stress incontinence (female) (male) LDL Cholesterol Direct Today E55.9 - Vitamin D deficiency, unspecified, E78.9 - Disorder of lipoprotein metabolism, unspecified, F33.9 - Major depressive disorder, recurrent, unspecified, G62.9 - Polyneuropathy, unspecified, H33.20 - Serous retinal detachment, unspecified eye, I10 - Essential (primary) hypertension, J44.9 - Chronic obstructive pulmonary disease, unspecified, M81.0 - Age-related osteoporosis without current pathological fracture, N39.3 - Stress incontinence (female) (male) TSH reflex Free T4 Today E55.9 - Vitamin D deficiency, unspecified, E78.9 - Disorder of lipoprotein metabolism, unspecified, F33.9 - Major depressive disorder, recurrent, unspecified, G62.9 - Polyneuropathy, unspecified, H33.20 - Serous retinal detachment, unspecified eye, I10 - Essential (primary) hypertension, J44.9 - Chronic obstructive pulmonary disease, unspecified, M81.0 - Age-related osteoporosis without current pathological fracture, N39.3 - Stress incontinence (female) (male) Complete Blood Count Auto Diff Today E55.9 - Vitamin D deficiency, unspecified, E78.9 - Disorder of lipoprotein metabolism, unspecified, F33.9 - Major depressive disorder, recurrent, unspecified, G62.9 - Polyneuropathy, unspecified, H33.20 - Serous retinal detachment, unspecified eye, I10 - Essential (primary) hypertension, J44.9 - Chronic obstructive pulmonary disease, unspecified, M81.0 - Age-related osteoporosis without current pathological fracture, N39.3 - Stress incontinence (female) (male) XR toe RT min 2V Today S99.921A - Unspecified injury of right foot, initial encounter Referrals Dermatology Referral Z12.83 - Encounter for screening for malignant neoplasm of skin Coding Level of Care Code Est Pt Level 4 (18364) Diagnoses Peripheral neuropathy G62.89 Peripheral neuropathy type: polyneuropathy, other COPD (chronic obstructive pulmonary disease) J44.9 Lipid disorder E78.9 Depression, major, recurrent F33.42 Active/Remission status: in full remission Stress incontinence N39.3 Age related osteoporosis M81.0 Retinal detachment H33.20 Vitamin D deficiency E55.9 Hypertension, essential I10 Injury of toe on right foot S99.921A Cerebellar atrophy G31.9 Asthma, moderate J45.40 Asthma complication type: uncomplicated Asthma persistence: persistent Allergic rhinitis J30.9
== END 2023-03-17 09:58 | disposition home or self-care (01) ==
LOC: HO.HMGC 09:34
PROVIDERS: PCP Internal Medicine; Visit Provider Internal Medicine
DX: G62.89 Other specified polyneuropathies (principal); J44.9 Chronic obstructive pulmonary disease, unspecified; F33.42 Major depressive disorder, recurrent, in full remission; E55.9 Vitamin D deficiency, unspecified; E78.9 Disorder of lipoprotein metabolism, unspecified; S99.921A Unspecified injury of right foot, initial encounter; N39.3 Stress incontinence (female) (male); I10 Essential (primary) hypertension; G31.9 Degenerative disease of nervous system, unspecified; M81.0 Age-related osteoporosis without current pathological fracture; H33.20 Serous retinal detachment, unspecified eye; J30.9 Allergic rhinitis, unspecified
CPT/HCPCS: 99214

== ENCOUNTER 2023-03-17 10:04 | Outpatient (REF) | payer MEDICARE, SELFPAY ==
--- NOTE | ~2023-03-17 | XR_ITS ---
EXAMINATION: XR TOES, RIGHT CLINICAL INFORMATION: Erythema and pain of fourth toe COMPARISON: None available. TECHNIQUE: 3 views of the right toes were obtained. FINDINGS: Generalized demineralization is present. Mild degenerative changes of the distal interphalangeal joints of the second, third, fourth and fifth toes is present. Hallux valgus is also evident. No acute fracture or dislocation is evident. There are no erosive or proliferative changes. XR/XR toe RT min 2V IMPRESSION: 1. Degenerative changes of the distal toes of the right foot but no acute fracture or subluxation. 2. Hallux valgus of the great toe.
[2023-03-17 13:12] LABS: MANUAL DIFF FLAG NO
[2023-03-17 13:25] LABS: Basophils Percent Auto 0.6 % (0-2); Eosinophils Absolute Auto 0.2 X10*3/uL (0.0-0.4); Eosinophils Percent Auto 4.3 % (0-4); Estimated Average Glucose 120 mg/dL; Hematocrit 34.2 % (37.0-47.0); Hemoglobin A1c % 5.8 %; Imm Gran Abs Auto 0.01 X10*3/uL (0.00-0.03); Imm Gran Pct Auto 0.2 % (0.0-0.4); Lymphocytes Absolute Auto 1.5 X10*3/uL (1.2-4.9); Lymphocytes Percent Auto 27.5 % (20-40); Mean Corpuscular HGB Conc 32.2 g/dl (31.0-35.0); Mean Corpuscular Hemoglobin 30.1 pg (27.0-33.0); Mean Corpuscular Volume 93.4 fL (80.0-98.0); Monocytes Absolute Auto 0.7 X10*3/uL (0.1-1.2); Monocytes Percent Auto 13.7 % (2-11); Neutrophils Absolute Auto 2.9 x10*3/uL (2.0-8.3); Neutrophils Percent Auto 53.7 % (45-73); Platelet Count 292 X10*3/uL (160-400); Red Blood Count 3.66 X10*6/uL (4.20-5.50); Red Cell Distribution Width 13.3 % (11.0-16.0); White Blood Count 5.4 X10*3/uL (4.8-10.8)
[2023-03-17 13:44] LABS: Alanine Aminotransferase 18 U/L (0-31); Albumin Level 4.2 g/dL (3.5-5.0); Alkaline Phosphatase 67 U/L (39-117); Anion Gap 13 (12-20); Aspartate Amino Transferase 25 U/L (5-31); Bilirubin Total 0.4 mg/dL (0.0-1.0); Blood Urea Nitrogen 16 mg/dL (9-16); Carbon Dioxide 31 mmol/L (22-29); Chloride 103 mmol/L (96-108); Estimated Glomerular Filt Rate > 60; Glucose Random 100 mg/dL (60-115); Potassium 5.6 mmol/L (3.3-5.1); Sodium 141 mmol/L (135-145); Total Protein 7.2 g/dL (6.5-8.0)
[2023-03-17 14:01] LABS: TSH reflex Free T4 3.33 uIU/mL (0.32-4.0)
[2023-03-18 08:32] LABS: LDL Cholesterol Direct 67 mg/dL (<100)
== END 2023-03-17 10:05 | disposition home or self-care (01) ==
LOC: HO.HMGCX 10:04
PROVIDERS: PCP Internal Medicine; Visit Provider Internal Medicine
DX: G62.9 Polyneuropathy, unspecified (principal); J44.9 Chronic obstructive pulmonary disease, unspecified; E78.9 Disorder of lipoprotein metabolism, unspecified; F33.9 Major depressive disorder, recurrent, unspecified; N39.3 Stress incontinence (female) (male); M81.0 Age-related osteoporosis without current pathological fracture; H33.20 Serous retinal detachment, unspecified eye; E55.9 Vitamin D deficiency, unspecified; I10 Essential (primary) hypertension; S99.921A Unspecified injury of right foot, initial encounter
CPT/HCPCS: 36415; 73660; 80053; 83036; 83721; 84443; 85025

== ENCOUNTER 2023-03-22 11:53 | Outpatient (REF) | payer MEDICARE, SELFPAY ==
[2023-03-22 14:38] LABS: Anion Gap 11 (12-20); Carbon Dioxide 31 mmol/L (22-29); Chloride 104 mmol/L (96-108); Sodium 141 mmol/L (135-145)
== END 2023-03-22 11:54 | disposition home or self-care (01) ==
LOC: HO.HMGCLDS 11:53
PROVIDERS: PCP Internal Medicine; Visit Provider Internal Medicine
DX: E87.5 Hyperkalemia (principal)
CPT/HCPCS: 36415; 80051

== ENCOUNTER 2023-04-15 10:22 | Outpatient (AMB) | payer MEDICARE, SELFPAY ==
--- NOTE | 2023-04-15 10:38 | A.OFFVIS_ITS ---
Intake Vital Signs 04/15/23 10:40 Height 5 ft 8 in Weight 151 lb BMI 23.0 BP 133/74 Blood Pressure Location Lt brachial Position Sitting Pulse 48 L Intake Visit Reasons: Colonoscopy Screening Intake Note: New Patient consult for 2nd pre colonoscopy screening Patient cc: abdominal bloating on and off, and denies any other GI issues. Resource Development Director Required: No Accompanied by: Self / Same As Patient Allergies ENVIROMENTAL Allergy (Unknown, Uncoded 02/20/23 14:13) WHEEZING,COUGH Medication List - Last Reconciled 04/15/23 by Lilly Chi PA-C albuterol sulfate 90 mcg/actuation 2 puffs PO Q4-6H PRN aspirin (Adult Low Dose Aspirin) 81 mg PO .every other day atorvastatin 40 mg PO DAILY 90 days budesonide-formoterol 160-4.5 mcg/actuation (Symbicort) 2 puffs inhalation BID 30 days fluticasone propionate 50 mcg/actuation (Flonase Allergy Relief) 1 spray intranasal BID 30 days gabapentin 300 mg PO TID 90 days lisinopril 5 mg PO DAILY 90 days mw-ery-cclkf acid-lutein 400-250 mcg (Centrum Silver) 2 tabs PO DAILY sodium polystyrene sulfonate 15 grams (60 mL) PO DAILY 3 days venlafaxine ER 75 mg PO DAILY 90 days HPI HPI Comments History of Present Illness Details A 67 y/o Female - COPD-hx colon adenomas 2018-colonoscopy Dr. Pearson revealed 3 adenomas and 1 hyperplastic polyp. 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 Brother No problems noted. Sister No problems noted. Son No problems noted. Daughter No problems noted. Social History Housing: Apartment Alcohol intake: former Year quit: 2017 Patient Tobacco Use Status: Former Tobacco user Quit Date: Over 3 years Tobacco use type: Cigarette Years Smoked: 45 (onset 16yo, quit ~2017) e-Cigarette/Vaping Use: Never Used Substance Use Type: Marijuana service: No Current occupational status: disabled Cognitive needs: No Hearing needs: No Vision needs: Yes Review of Systems Const All systems reviewed & are unremarkable except as noted in HPI and below Card Denies chest pain, Denies dyspnea and Reports dyspnea on exertion Resp Denies dyspnea and Reports dyspnea on exertion GI Denies abdominal pain, Denies change in bowel habits, Denies heartburn, Denies diarrhea and Denies nausea Physical Exam Vital Signs: Last Vital Signs Pulse 48 L 04/15/23 10:40 BP 133/74 04/15/23 10:40 BMI result Body Mass Index 23.0 Const General: cooperative, comfortable and no acute distress Orientation/consciousness: patient oriented x3 Limitations: no limitations Eyes Sclerae: sclerae normal Resp Effort & Inspection: normal respiratory effort and able to speak in complete sentences Auscultation: diminished lung sounds Cardio Rate: regular rate Rhythm: regular rhythm GI Palpation (GI): Soft to palpation and nontender Auscultation: normal bowel sounds Neuro General: patient oriented x3 Extrem General: Yes full ROM Psych Appearance: well kempt Mental Status: mental status grossly normal Speech and movement: Normal speech and movement present Affect: normal affect Attitude: cooperative Thought process: Normal thought process present Thought content: Normal thought content present Insight: Good insight present (Psych) Judgement: Good judgement present (Psych) Results Reviewed Results Reviewed: Impression and Post Procedure Diagnosis: Colonoscopy Findings: polyps internal hemorrhoids diverticulosis Plan: Await pathology results High fiber diet Repeat Colonoscopy interval based on path results, 3-5 yrs if adenomatous, 10 yrs if h 3 adenomas 1 hyperplastic Assessment & Plan Assessment & Plan (1) Colon adenomas: Comment: 3 adenomas 2019 Discussed procedure, rare risks, need for escort Code(s): D12.6 - Benign neoplasm of colon, unspecified Plan: Polyp surveillance colonoscopy Plan Repeat colonoscopy- [facility]- Orders: Orders Colonoscopy - GI Use Only Today D12.6 - Benign neoplasm of colon, unspecified Medications: New bisacodyl (Dulcolax (bisacodyl)) Take 4 tablets by mouth at 12:00pm the day before your procedure. 20 mg (4 x 5 mg) PO ONCE 1 day 4 tabs 0RF colonoscopy prep Z12.11 - Encounter for screening for malignant neoplasm of colon polyethylene glycol 3350 (Miralax) Take as directed by mouth the day before your procedure. 238 grams PO ONCE 1 day PRN 238 grams 0RF laxative effect Patient Instructions: Colonoscopy- polyp surveillance- MG prep COPD-cough, follow-up with PCP Encouraged to call questions or concerns Coding Level of Care Code Est Pt Level 3 (63301) Diagnoses Colon adenomas D12.6 Time Spent (min) 25
[2023-04-15 10:40] VITALS: BP 133/74; PULSE 48; BMI 23.0
== END 2023-04-15 12:47 | disposition home or self-care (01) ==
PROVIDERS: PCP Internal Medicine; Visit Provider Physician Assistant
DX: D12.6 Benign neoplasm of colon, unspecified (principal)
CPT/HCPCS: 99213

== ENCOUNTER → 2023-04-15 10:22 | Outpatient (BNVA) | payer MEDICARE, SELFPAY | PROVIDERS: PCP Internal Medicine; Visit Provider Physician Assistant | DX: Z01.818 Encounter for other preprocedural examination (principal); Z86.010 Personal history of colon polyps | CPT/HCPCS: 99212 ==

== ENCOUNTER 2023-06-08 09:49 | Outpatient (AMB) | payer MEDICARE, SELFPAY ==
[2023-06-08 10:14] VITALS: BP 130/64; PULSE 62; O2SAT 95; BMI 22.8
--- NOTE | 2023-06-08 10:14 | A.OFFVIS_ITS ---
Intake Vital Signs 06/08/23 10:14 Height 5 ft 8 in Weight 150 lb BMI 22.8 BP 130/64 Blood Pressure Location Lt brachial Position Sitting Pulse 62 Pulse Source Pulse Oximeter Pulse Oximetry (%) 95 Oxygen Delivery Method Room Air Intake Visit Reasons: Cough Intake Note: pt is here for follow up and states the cough is not as bad, she is not smoking, but she does get short of breath, with exertion and walking fast. Stops half way up and down the stairs., [employer] Required: No Allergies ENVIROMENTAL Allergy (Unknown, Uncoded 06/08/23 10:44) WHEEZING,COUGH Medication List - Last Reconciled 06/08/23 by Richardson Foley MD albuterol sulfate 90 mcg/actuation 2 puffs PO Q4-6H PRN aspirin (Adult Low Dose Aspirin) 81 mg PO .every other day atorvastatin 40 mg PO DAILY 90 days bisacodyl (Dulcolax (bisacodyl)) 20 mg (4 x 5 mg) PO ONCE 1 day budesonide-formoterol 160-4.5 mcg/actuation (Symbicort) 2 puffs inhalation BID 30 days fluticasone propionate 50 mcg/actuation (Flonase Allergy Relief) 1 spray intranasal BID PRN gabapentin 300 mg PO TID 90 days lisinopril 5 mg PO DAILY 90 days oe-fza-ooekc acid-lutein 400-250 mcg (Centrum Silver) 2 tabs PO DAILY polyethylene glycol 3350 (Miralax) 238 grams PO ONCE PRN 1 day sodium polystyrene sulfonate 15 grams (60 mL) PO DAILY 3 days venlafaxine ER 75 mg PO DAILY 90 days Do you need a note to return to daycare/school/sports/work: No HPI Cough HPI Details THIS 67 YEARS OLD VERY PLEASANT FEMALE, AN EX SMOKER, COMES AFTER 1 YEAR FOR FOLLOW-UP. SHE HAS MODERATELY SEVERE OBSTRUCTIVE AIRWAY DISORDER, AND USED TO HAVE FREQUENT COUGH. SHE HAS STOP SMOKING FOR THE LAST FEW YEARS AND THE COUGH IS MUCH LESS. SHE DOES GET SHORT OF BREATH WHEN SHE CLIMBS STAIRS OR WALKS FAST, BUT NOT WITH HER DAY-TO-DAY ACTIVITIES. 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 Brother No problems noted. Sister No problems noted. Son No problems noted. Daughter No problems noted. Social History Housing: Apartment Alcohol intake: former Year quit: 2017 Patient Tobacco Use Status: Former Tobacco user Quit Date: Over 3 years Tobacco use type: Cigarette Years Smoked: 45 (onset 16yo, quit ~2017) e-Cigarette/Vaping Use: Never Used Substance Use Type: Marijuana service: No Current occupational status: disabled Cognitive needs: No Hearing needs: No Vision needs: Yes Review of Systems Const All systems reviewed & are unremarkable except as noted in HPI and below ENT Reports nasal congestion (OFF AND ON ) Card Denies chest pain, Denies leg edema and Reports dyspnea on exertion (MILD ) Resp Reports cough (OCCASIONAL ) and Reports dyspnea on exertion (MILD ) GI Reports no additional complaints Musc Reports no additional complaints Neuro Reports no additional complaints Psych Reports no additional complaints Endo Reports no additional complaints Physical Exam Vital Signs: Last Vital Signs Pulse 62 06/08/23 10:14 BP 130/64 06/08/23 10:14 Pulse Ox 95 06/08/23 10:14 Oxygen Delivery Method Room Air 06/08/23 10:14 BMI result Body Mass Index 22.8 Const General: healthy appearing, comfortable, no acute distress, alert and awake Orientation/consciousness: patient oriented x3 HEENT Head: Yes normal to inspection General nose exam: No nasal polyps present and No nasal discharge present Face and sinus: Yes sinuses nontender Mouth: oropharynx normal Throat: Yes posterior oropharynx normal Eyes General: appearance normal, both eyes and all related structures Neck Neck: Yes normal visual inspection, Yes no lymphadenopathy, Yes trachea midline and Yes no JVD Thyroid: Thyroid normal Chest Chest palpation & inspection: normal inspection of the chest, normal palpation of entire chest wall and no tenderness Resp Other: Percussion note is resonant. Breath sounds are distant with prolonged expiratory phase. No wheezes rhonchi or crepitations are heard. Effort & Inspection: prolonged expiratory phase Auscultation: no crackles, no wheezes and diminished lung sounds Cardio Palpation: normal PMI Rate: regular rate Rhythm: regular rhythm Heart sounds: no gallops and no murmurs Peripheral pulses: Peripheral pulses 2+ throughout GI Palpation (GI): Soft to palpation, nontender, No hepatosplenomegaly present and no masses Auscultation: normal bowel sounds Back/Spine/Pelvis Thoracic/Lumbar Spine: thoracic and lumbar spine normal to inspection Skin General skin exam: no rashes or lesions noted Neuro General: patient oriented x3 and no focal motor deficits Cranial nerves: Yes CN's II-XII intact bilaterally Extrem General: Yes normal to inspection, Yes no clubbing, cyanosis or edema, Yes no calf tenderness and No venous stasis dermatitis Psych Appearance: grossly normal and well kempt Speech and movement: Normal speech and movement present Office Procedures Spirometry Testing Spirometry Comments: Spirometry done in the office, Dr. Foley has the results results scanned to her chart. 27989- Spirometry Results Reviewed Results Reviewed: spirometry FVC FEV1 FEV1/FVC FEF 25-75 12/23/2020 68% 47 % 53 17 % 06/08/23 76 % 49 % 51 22 % C/W MODERATELY SEVERE OBSTRUCTIVE AIRWAY DISORDER, BUT THE NUMBERS ARE SLIGHTLY IMPROVED FROM SO 1021. Assessment & Plan Assessment & Plan (1) Ex-smoker for more than 1 year: Comment: She has history of smoking about 30-35 pack years. Luckily quit since 4 years ago and does not have any desire to go back to smoking. Low dose CT scan ,Benign , 3 mm nodule Code(s): Z87.891 - Personal history of nicotine dependence (2) COPD (chronic obstructive pulmonary disease): Comment: Patient has moderately severe obstructive airway disorder. Has been quite stable with her current regimen. [place] : Symbicort 160-4.52 puffs b.i.d. regularly. ProAir HFA 2 puffs Q 6 hours p.r.n.. For Cough use cough drops as needed. Code(s): J44.9 - Chronic obstructive pulmonary disease, unspecified (3) Allergic rhinitis: Comment: It is mild with to seasonal exacerbations. Using Flonase and Cetrizine 10 mg once a day only p.r.n.. Code(s): J30.9 - Allergic rhinitis, unspecified Orders: Orders AMB Spirometry Testing Today J44.9 - Chronic obstructive pulmonary disease, unspecified Medications: Changed From fluticasone propionate 50 mcg/actuation (Flonase Allergy Relief) administer into each nostril 1 spray intranasal BID 30 days 16 grams 5RF To fluticasone propionate 50 mcg/actuation (Flonase Allergy Relief) administer into each nostril 1 spray intranasal BID PRN Coding Level of Care Code Est Pt Level 3 (19900) Diagnoses Ex-smoker for more than 1 year Z87.891 COPD (chronic obstructive pulmonary disease) J44.9 Allergic rhinitis J30.9 CPT Codes Spirometry - CPT: 15793- Spirometry ([id number])
== END 2023-06-08 10:56 | disposition home or self-care (01) ==
PROVIDERS: PCP Internal Medicine; Visit Provider Internal Medicine
DX: Z87.891 Personal history of nicotine dependence (principal); J44.9 Chronic obstructive pulmonary disease, unspecified; J30.9 Allergic rhinitis, unspecified
CPT/HCPCS: 94010; 99213

== ENCOUNTER → 2023-06-08 09:49 | Outpatient (BNVA) | payer MEDICARE, SELFPAY | PROVIDERS: PCP Internal Medicine; Visit Provider Internal Medicine | DX: J44.9 Chronic obstructive pulmonary disease, unspecified (principal); J30.9 Allergic rhinitis, unspecified; Z87.891 Personal history of nicotine dependence | CPT/HCPCS: 94010; 99212 ==

== ENCOUNTER 2023-06-18 11:27 | Outpatient (AMB) | payer MEDICARE, SELFPAY ==
[2023-06-18 11:39] VITALS: BP 116/64; PULSE 58; O2SAT 98; BMI 22.9
--- NOTE | 2023-06-18 11:39 | A.OFFPC_ITS ---
Vital Signs 06/18/23 11:39 Height 5 ft 8 in Weight 150 lb 6 oz BMI 22.9 BP 116/64 Blood Pressure Location Rt brachial Position Sitting Pulse 58 Pulse Source Pulse Oximeter Pulse Oximetry (%) 98 Oxygen Delivery Method Room Air Intake Visit Reasons: Annual PE, Discuss/Bill ACP Allergies ENVIROMENTAL Allergy (Unknown, Uncoded 06/08/23 10:44) WHEEZING,COUGH Medication List - Last Reconciled 06/18/23 by Teressa Hendrix MD albuterol sulfate 90 mcg/actuation 2 puffs PO Q4-6H PRN aspirin (Adult Low Dose Aspirin) 81 mg PO .every other day atorvastatin 40 mg PO DAILY 90 days bisacodyl (Dulcolax (bisacodyl)) 20 mg (4 x 5 mg) PO ONCE 1 day budesonide-formoterol 160-4.5 mcg/actuation (Symbicort) 2 puffs inhalation BID 30 days fluticasone propionate 50 mcg/actuation (Flonase Allergy Relief) 1 spray intranasal BID PRN gabapentin 300 mg PO TID 90 days lisinopril 5 mg PO DAILY 90 days lp-qoe-cykug acid-lutein 400-250 mcg (Centrum Silver) 2 tabs PO DAILY polyethylene glycol 3350 (Miralax) 238 grams PO ONCE PRN 1 day sodium polystyrene sulfonate 15 grams (60 mL) PO DAILY 3 days venlafaxine ER 75 mg PO DAILY 90 days Tobacco use date assessed: 06/18/23 Fall risk assessment: No Falls in past year Last assessed Fall Risk: 06/18/23 Dental Screening Dental Screen Date: 06/18/23 Did you have a dental visit in the last 12 months?: Yes Did you have a dental problem in the last 6 months where you did not have access to dental care?: No Was dental information given to patient?: Patient has dentist HPI Annual PE, Discuss/Bill ACP HPI Details Patient is 67-year-old female came in today for physical examination Labs done in March Patient is slightly anemic with hemoglobin of 11, I have sent iron supplement f or the patient She have microcytic indices Patient have COPD/asthma: She is seeing Dr. 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 Brother No problems noted. Sister No problems noted. Son No problems noted. Daughter No problems noted. Social History Housing: Apartment Alcohol intake: former Year quit: 2017 Patient Tobacco Use Status: Former Tobacco user Quit Date: Over 3 years Tobacco use type: Cigarette Years Smoked: 45 (onset 16yo, quit ~2017) e-Cigarette/Vaping Use: Never Used Substance Use Type: Marijuana service: No Current occupational status: disabled Cognitive needs: No Hearing needs: No Vision needs: Yes Questionnaire Thrive Questionnaire Date Thrive assessed: 09/09/22 AUDIT C Alcohol Use Questionnaire (AUDIT-C) 1. How often do you have a drink containing alcohol?: Never 3. How often do you have six or more drinks on one occasion?: Never Total Score: 0 Score Reviewed/Action Taken: Yes ZOLTAN-7 AMB Questionnaire ZOLTAN-7 Date ZOLTAN - 7 assessed: 09/09/22 Source: Developed by Drs. Estrada Fish, Kassidy Emery, Bossman Castellanos and colleagues, with an educational jaswant from [email or web address]. Review of Systems Const Denies chills, Denies fever(s) and Denies headache(s) ENT Denies headache(s), Denies nasal discharge, Denies nasal obstruction, Denies odynophagia and Denies sinus pain Card Denies chest pain at rest and Denies chest pain with activity Resp Denies cough and Denies hemoptysis GI Denies diarrhea, Denies odynophagia, Denies vomiting and Denies hematemesis Reports as per HPI Skin/Breast Reports as per HPI Neuro Denies Neuro-related abnormal movements, Denies Abnormal speech present and Denies headache(s) Psych Denies mood swings and Denies paranoia Endo Reports as per HPI Genaro/Lymph Reports as per HPI Aller/Immun Reports as per HPI Physical exam (Primary Care) Vital Signs: Last Vital Signs Pulse 58 06/18/23 11:39 BP 116/64 06/18/23 11:39 Pulse Ox 98 06/18/23 11:39 Oxygen Delivery Method Room Air 06/18/23 11:39 BMI result Body Mass Index 22.9 Tobacco/Smoking Status: Tobacco use Status Tobacco use date assessed 06/18/23 06/18/23 11:40 Patient Tobacco Use Status Former Tobacco user 06/18/23 11:40 Tobacco use type Cigarette 06/18/23 11:40 e-Cigarette/Vaping Use Never Used 06/18/23 11:40 Thrive Assessment: Date of Thrive Assessment Date Thrive assessed 09/09/22 06/18/23 11:40 Const General: cooperative, comfortable and no acute distress Orientation/consciousness: patient oriented x3 HENMT Head: Yes normocephalic and Yes atraumatic Eyes General: appearance normal, both eyes and all related structures EOM: EOMs intact bilaterally Neck Neck: Yes supple and No lymphadenopathy Thyroid: Thyroid normal Lymphatic: no lymphadenopathy noted Chest Breast/axilla palpation: normal palpation of the breasts Resp Effort & Inspection: normal respiratory effort and able to speak in complete sentences Auscultation: clear to auscultation bilaterally Cardio Heart sounds: S1 normal heart sound present and S2 normal heart sound present GI Palpation (GI): Soft to palpation and nontender Auscultation: normal bowel sounds General: Yes no CVA tenderness Back/Spine/Pelvis Back: no CVA tenderness Skin General skin exam: elasticity normal and turgor normal Neuro General: patient oriented x3 and gait normal Speech: No Abnormal speech present Coordination: Romberg test negative Extrem General: Yes normal exam except as noted and No edema Assessment and Plan Assessment & Plan (1) Encounter for general adult medical examination with abnormal findings: Code(s): Z00.01 - Encounter for general adult medical examination with abnormal findings (2) Hyperparathyroidism: Code(s): E21.3 - Hyperparathyroidism, unspecified (3) Hypertension, essential: Code(s): I10 - Essential (primary) hypertension (4) Peripheral neuropathy: Code(s): G62.9 - Polyneuropathy, unspecified Qualifiers: Peripheral neuropathy type: polyneuropathy, alcohol-induced Qualified Code(s): G62.1 - Alcoholic polyneuropathy (5) Vitamin D deficiency: Code(s): E55.9 - Vitamin D deficiency, unspecified (6) Retinal detachment: Code(s): H33.20 - Serous retinal detachment, unspecified eye Qualifiers: Laterality: unspecified laterality Qualified Code(s): H33.20 - Serous retinal detachment, unspecified eye (7) Age related osteoporosis: Code(s): M81.0 - Age-related osteoporosis without current pathological fracture Qualifiers: Presence of current pathological fracture: without current pathological fracture Qualified Code(s): M81.0 - Age-related osteoporosis without current pathological fracture (8) Lipid disorder: Code(s): E78.9 - Disorder of lipoprotein metabolism, unspecified (9) Stress incontinence: Code(s): N39.3 - Stress incontinence (female) (male) (10) Depression, major, recurrent: Code(s): F33.9 - Major depressive disorder, recurrent, unspecified Qualifiers: Active/Remission status: in full remission Qualified Code(s): F33.42 - Major depressive disorder, recurrent, in full remission (11) Cerebellar atrophy: Comment: Evaluated by Neurology Code(s): G31.9 - Degenerative disease of nervous system, unspecified (12) Allergic rhinitis: Comment: It is mild with to seasonal exacerbations. Using Flonase and Cetrizine 10 mg once a day only p.r.n.. Code(s): J30.9 - Allergic rhinitis, unspecified Qualifiers: Allergic rhinitis trigger: other Allergic rhinitis seasonality: non- seasonal Qualified Code(s): J30.89 - Other allergic rhinitis (13) Asthma, moderate: Comment: Patient has asthma/COPD overlap syndrome. TX: See under COPD Code(s): J45.909 - Unspecified asthma, uncomplicated Qualifiers: Asthma persistence: persistent Asthma complication type: uncomplicated Qualified Code(s): J45.40 - Moderate persistent asthma, uncomplicated (14) COPD (chronic obstructive pulmonary disease): Comment: Patient has moderately severe obstructive airway disorder. Has been quite stable with her current regimen. TX : Symbicort 160-4.52 puffs b.i.d. regularly. ProAir HFA 2 puffs Q 6 hours p.r.n.. For Cough use cough drops as needed. Code(s): J44.9 - Chronic obstructive pulmonary disease, unspecified Qualifiers: COPD type: emphysema Emphysema type: panlobular Qualified Code(s): J43.1 - Panlobular emphysema Plan Patient is 67-year-old female came in today for physical examination Labs done in March reviewed Patient is slightly anemic with hemoglobin of 11, I have sent iron supplement for the patient She have microcytic indices Patient have COPD/asthma: She is seeing Dr. 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 Mammogram was August of this year Patient no longer having Pap smears Other medications reviewed Labs ordered to be done fasting in 3 months with a follow-up appointment Orders: Orders Complete Blood Count Auto Diff Today E21.3 - Hyperparathyroidism, unspecified, E55.9 - Vitamin D deficiency, unspecified, E78.9 - Disorder of lipoprotein metabolism, unspecified, F33.9 - Major depressive disorder, recurrent, unspecified, G31.9 - Degenerative disease of nervous system, unspecified, G62.9 - Polyneuropathy, unspecified, H33.20 - Serous retinal detachment, unspecified eye, I10 - Essential (primary) hypertension, J30.9 - Allergic rhinitis, unspecified, J44.9 - Chronic obstructive pulmonary disease, unspecified, J45.909 - Unspecified asthma, uncomplicated, M81.0 - Age-related osteoporosis without current pathological fracture, N39.3 - Stress incontinence (female) (male), Z00.01 - Encounter for general adult medical examination with abnormal findings Vitamin B12 Today E21.3 - Hyperparathyroidism, unspecified, E55.9 - Vitamin D deficiency, unspecified, E78.9 - Disorder of lipoprotein metabolism, unspecified, F33.9 - Major depressive disorder, recurrent, unspecified, G31.9 - Degenerative disease of nervous system, unspecified, G62.9 - Polyneuropathy, unspecified, H33.20 - Serous retinal detachment, unspecified eye, I10 - Essential (primary) hypertension, J30.9 - Allergic rhinitis, unspecified, J44.9 - Chronic obstructive pulmonary disease, unspecified, J45.909 - Unspecified asthma, uncomplicated, M81.0 - Age-related osteoporosis without current pathological fracture, N39.3 - Stress incontinence (female) (male), Z00.01 - Encounter for general adult medical examination with abnormal findings Comprehensive [place]. Panel Fast Today E21.3 - Hyperparathyroidism, unspecified, E55.9 - Vitamin D deficiency, unspecified, E78.9 - Disorder of lipoprotein metabolism, unspecified, F33.9 - Major depressive disorder, recurrent, unspecified, G31.9 - Degenerative disease of nervous system, unspecified, G62.9 - Polyneuropathy, unspecified, H33.20 - Serous retinal detachment, unspecified eye, I10 - Essential (primary) hypertension, J30.9 - Allergic rhinitis, unspecified, J44.9 - Chronic obstructive pulmonary disease, unspecified, J45.909 - Unspecified asthma, uncomplicated, M81.0 - Age-related osteoporosis without current pathological fracture, N39.3 - Stress incontinence (female) (male), Z00.01 - Encounter for general adult medical examination with abnormal findings Lipid Panel Today E21.3 - Hyperparathyroidism, unspecified, E55.9 - Vitamin D deficiency, unspecified, E78.9 - Disorder of lipoprotein metabolism, unspecified, F33.9 - Major depressive disorder, recurrent, unspecified, G31.9 - Degenerative disease of nervous system, unspecified, G62.9 - Polyneuropathy, unspecified, H33.20 - Serous retinal detachment, unspecified eye, I10 - Essential (primary) hypertension, J30.9 - Allergic rhinitis, unspecified, J44.9 - Chronic obstructive pulmonary disease, unspecified, J45.909 - Unspecified a sthma, uncomplicated, M81.0 - Age-related osteoporosis without current pathological fracture, N39.3 - Stress incontinence (female) (male), Z00.01 - Encounter for general adult medical examination with abnormal findings Vitamin D 25-OH (D2 and D3) Today E21.3 - Hyperparathyroidism, unspecified, E55.9 - Vitamin D deficiency, unspecified, E78.9 - Disorder of lipoprotein met abolism, unspecified, F33.9 - Major depressive disorder, recurrent, unspecified, G31.9 - Degenerative disease of nervous system, unspecified, G62.9 - Polyneuropathy, unspecified, H33.20 - Serous retinal detachment, unspecified eye, I10 - Essential (primary) hypertension, J30.9 - Allergic rhinitis, unspecified, J44.9 - Chronic obstructive pulmonary disease, unspecified, J45.909 - Unspecified asthma, uncomplicated, M81.0 - Age-related osteoporosis without current pathological fracture, N39.3 - Stress incontinence (female) (male), Z00.01 - Encounter for general adult medical examination with abnormal findings TSH reflex Free T4 Today E21.3 - Hyperparathyroidism, unspecified, E55.9 - Vitamin D deficiency, unspecified, E78.9 - Disorder of lipoprotein metabolism, unspecified, F33.9 - Major depressive disorder, recurrent, unspecified, G31.9 - Degenerative disease of nervous system, unspecified, G62.9 - Polyneuropathy, unspecified, H33.20 - Serous retinal detachment, unspecified eye, I10 - Essential (primary) hypertension, J30.9 - Allergic rhinitis, unspecified, J44.9 - Chronic obstructive pulmonary disease, unspecified, J45.909 - Unspecified asthma, uncomplicated, M81.0 - Age-related osteoporosis without current pathological fracture, N39.3 - Stress incontinence (female) (male), Z00.01 - Encounter for general adult medical examination with abnormal findings Ferritin Today E21.3 - Hyperparathyroidism, unspecified, E55.9 - Vitamin D deficiency, unspecified, E78.9 - Disorder of lipoprotein metabolism, unspecified, F33.9 - Major depressive disorder, recurrent, unspecified, G31.9 - Degenerative disease of nervous system, unspecified, G62.9 - Polyneuropathy, unspecified, H33.20 - Serous retinal detachment, unspecified eye, I10 - Essential (primary) hypertension, J30.9 - Allergic rhinitis, unspecified, J44.9 - Chronic obstructive pulmonary disease, unspecified, J45.909 - Unspecified asthma, uncomplicated, M81.0 - Age-related osteoporosis without current pathological fracture, N39.3 - Stress incontinence (female) (male), Z00.01 - Encounter for general adult medical examination with abnormal findings Folate Today E21.3 - Hyperparathyroidism, unspecified, E55.9 - Vitamin D deficiency, unspecified, E78.9 - Disorder of lipoprotein metabolism, unspecified, F33.9 - Major depressive disorder, recurrent, unspecified, G31.9 - Degenerative disease of nervous system, unspecified, G62.9 - Polyneuropathy, unspecified, H33.20 - Serous retinal detachment, unspecified eye, I10 - Essential (primary) hypertension, J30.9 - Allergic rhinitis, unspecified, J44.9 - Chronic obstructive pulmonary disease, unspecified, J45.909 - Unspecified asthma, uncomplicated, M81.0 - Age-related osteoporosis without current pathological fracture, N39.3 - Stress incontinence (female) (male), Z00.01 - Encounter for general adult medical examination with abnormal findings Medications: New ferrous sulfate 324 mg PO DAILY 90 days 90 tabs 0RF cyanocobalamin (vitamin B-12) 1,000 mcg PO DAILY 90 days 90 tabs 0RF Changed From aspirin (Adult Low Dose Aspirin) 81 mg PO .every other day To aspirin (Adult Low Dose Aspirin) 81 mg PO .every other day 90 days 45 tabs 0RF Refilled gabapentin 300 mg PO TID 90 days 270 caps 0RF G62.9 - Polyneuropathy, unspecified atorvastatin 40 mg PO DAILY 90 days 90 tabs 3RF E78.9 - Disorder of lipoprotein metabolism, unspecified lisinopril 5 mg PO DAILY 90 days 90 tabs 1RF venlafaxine ER 75 mg PO DAILY 90 days 90 caps 3RF Coding Level of Care Code Est Pt Prev Care >65y(06143) Diagnoses Encounter for general adult medical examination with abnormal findings Z00.01 Hyperparathyroidism E21.3 Hypertension, essential I10 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 Peripheral neuropathy type: polyneuropathy, alcohol-induced Vitamin D deficiency E55.9 Retinal detachment, unspecified laterality H33.20 Laterality: unspecified laterality Age-related osteoporosis without current pathological fracture M81.0 Presence of current pathological fracture: without current pathological fracture Lipid disorder E78.9 Stress incontinence N39.3 Recurrent major depressive disorder, in full remission F33.42 Active/Remission status: in full remission Cerebellar atrophy G31.9 Non-seasonal allergic rhinitis due to other allergic trigger J30.89 Allergic rhinitis trigger: other Allergic rhinitis seasonality: non-seasonal Moderate persistent asthma without complication J45.40 Asthma persistence: persistent Asthma complication type: uncomplicated Panlobular emphysema J43.1 COPD type: emphysema Emphysema type: panlobular
== END 2023-06-18 12:01 | disposition home or self-care (01) ==
PROVIDERS: Visit Provider Internal Medicine
DX: Z00.00 Encounter for general adult medical examination without abnormal findings (principal); J43.1 Panlobular emphysema; E21.3 Hyperparathyroidism, unspecified; G62.1 Alcoholic polyneuropathy; F33.42 Major depressive disorder, recurrent, in full remission; G31.9 Degenerative disease of nervous system, unspecified; I10 Essential (primary) hypertension; E55.9 Vitamin D deficiency, unspecified; H33.20 Serous retinal detachment, unspecified eye; M81.0 Age-related osteoporosis without current pathological fracture; N39.3 Stress incontinence (female) (male); E78.9 Disorder of lipoprotein metabolism, unspecified
CPT/HCPCS: 99397

== ENCOUNTER 2023-09-09 10:43 | Outpatient (REF) | payer MEDICARE, SELFPAY ==
[2023-09-09 13:22] LABS: MANUAL DIFF FLAG NO
[2023-09-09 13:38] LABS: Basophils Percent Auto 0.6 % (0-2); Eosinophils Absolute Auto 0.3 X10*3/uL (0.0-0.4); Eosinophils Percent Auto 3.8 % (0-4); Hematocrit 38.7 % (37.0-47.0); Hemoglobin 12.4 g/dl (12.0-16.0); Imm Gran Abs Auto 0.02 X10*3/uL (0.00-0.03); Imm Gran Pct Auto 0.3 % (0.0-0.4); Lymphocytes Absolute Auto 1.8 X10*3/uL (1.2-4.9); Lymphocytes Percent Auto 25.6 % (20-40); Mean Corpuscular Hemoglobin 30.2 pg (27.0-33.0); Mean Corpuscular Volume 94.4 fL (80.0-98.0); Mean Platelet Volume 10.2 fL (9.4-12.3); Monocytes Absolute Auto 0.7 X10*3/uL (0.1-1.2); Monocytes Percent Auto 9.6 % (2-11); Neutrophils Absolute Auto 4.2 x10*3/uL (2.0-8.3); Neutrophils Percent Auto 60.1 % (45-73); Platelet Count 334 X10*3/uL (160-400); Red Cell Distribution Width 13.2 % (11.0-16.0); White Blood Count 7.1 X10*3/uL (4.8-10.8)
[2023-09-09 13:52] LABS: Alanine Aminotransferase 19 U/L (0-31); Albumin Level 4.5 g/dL (3.5-5.0); Alkaline Phosphatase 67 U/L (39-117); Anion Gap 16 (12-20); Aspartate Amino Transferase 23 U/L (5-31); Bilirubin Total 0.5 mg/dL (0.0-1.0); Blood Urea Nitrogen 13 mg/dL (9-16); Calcium 10.1 mg/dL (8.4-10.2); Carbon Dioxide 28 mmol/L (22-29); Chloride 102 mmol/L (96-108); Cholesterol 158 mg/dL (<200); Estimated Glomerular Filt Rate > 60; Glucose Fasting 107 mg/dL (60-99); HDL Cholesterol 63 mg/dL (>40); LDL Cholesterol Calculated 65 mg/dL (<100); Potassium 4.8 mmol/L (3.3-5.1); Sodium 141 mmol/L (135-145); Total Protein 7.7 g/dL (6.5-8.0); Triglycerides 151 mg/dL (<150)
[2023-09-09 14:09] LABS: Ferritin 88 ng/mL (10-250); TSH reflex Free T4 4.34 uIU/mL (0.32-4.0)
[2023-09-09 14:22] LABS: Folate 14.9 ng/mL (> or = 4.0); Vitamin B12 1451 pg/mL (200-900)
[2023-09-09 14:56] LABS: Free T4 (Free Thyroxine) 0.95 ng/dL (0.71-1.85)
[2023-09-15 13:34] LABS: Vitamin D 25-OH, D2 <4 ng/mL; Vitamin D 25-OH, D3 46 ng/mL; Vitamin D 25-OH, Total 46 ng/mL (30-100)
== END 2023-09-09 10:44 | disposition home or self-care (01) ==
LOC: HO.HMGCLDS 10:43
PROVIDERS: PCP Internal Medicine; Visit Provider Internal Medicine
DX: Z00.01 Encounter for general adult medical examination with abnormal findings (principal); E21.3 Hyperparathyroidism, unspecified; I10 Essential (primary) hypertension; G62.9 Polyneuropathy, unspecified; M81.0 Age-related osteoporosis without current pathological fracture; E78.9 Disorder of lipoprotein metabolism, unspecified; N39.3 Stress incontinence (female) (male); F33.9 Major depressive disorder, recurrent, unspecified; G31.9 Degenerative disease of nervous system, unspecified; J30.9 Allergic rhinitis, unspecified; J44.9 Chronic obstructive pulmonary disease, unspecified
CPT/HCPCS: 36415; 80053; 80061; 82306; 82607; 82728; 82746; 84439; 84443; 85025

== ENCOUNTER 2023-09-22 09:26 | Day surgery (SDC) | payer MEDICARE, SELFPAY ==
[2023-09-17 13:32] VITALS: BMI 22.8
[2023-09-22 10:08] VITALS: BP 125/70; PULSE 70; RESP 18; TEMP 36.9; O2SAT 95; BMI 21.3
--- NOTE | 2023-09-22 10:20 | P.CONAN_ITS ---
HPI - Anesthesia Eval Consult details Narrative: 68 yo female patient for Colonoscopy [facility] Active Problems Active Problems: All Active Problems (Updated 09/22/23 @ 10:20 by Sharmaine Mtz MD) Colon adenomas (Acute) Injury of toe on right foot (Acute) Skin cancer screening (Acute) Peripheral neuropathy (Acute) Tooth infection (Acute) Hyperkalemia (Acute) Hypertension, essential (Acute) Left ankle injury (Acute) Injury of foot, left (Acute) Cataract (Acute) Pre-op evaluation (Acute) Hyperparathyroidism (Acute) Encounter for general adult medical examination with abnormal findings (Acute) Goiter (Acute) Vitamin D deficiency (Acute) Osteoporosis (Acute) Retinal detachment (Acute) Preoperative clearance (Acute) Age related osteoporosis (Acute) Lipid disorder (Acute) Personal history of nicotine dependence (Acute) Ex-smoker for more than 1 year (Acute) Osteopenia (Acute) Breast screening (Acute) Blurring of vision (Acute) Stress incontinence (Acute) Depression, major, recurrent (Acute) Lipid disorder (Acute) Cerebellar atrophy (Acute) Peripheral neuropathy (Acute) COPD (chronic obstructive pulmonary disease) (Acute) Asthma, moderate (Acute) Allergic rhinitis (Acute) CAD. 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 Brother No problems noted. Sister No problems noted. Son No problems noted. Daughter No problems noted. Family history of problems with anesthesia: No Surgical History Surgical History Hx of eye surgery History of tooth extraction History of colonoscopy (~06/27/19) History of total right hip arthroplasty History of Problems with Anesthesia: No Social History Social History Housing: Apartment Alcohol intake: former Year quit: 2017 Patient Tobacco Use Status: Former Tobacco user Quit Date: 6 years Tobacco use type: Cigarette Years Smoked: 45 (onset 16yo, quit ~2017) e-Cigarette/Vaping Use: Never Used Substance Use Type: Marijuana service: No Current occupational status: disabled Cognitive needs: No Hearing needs: No Vision needs: Yes Meds Allergies Allergy/AdvReac Type Severity Reaction Status Date / Time ENVIROMENTAL Allergy Unknown WHEEZING,CO Uncoded 06/08/23 10:44 UGH Active Medications: Current Medications Lactated Ringer's (Lr) 1,000 mls @ 50 mls/hr IVCONT .Q20H [facility] Home Medications Medication Instructions Recorded Confirmed Last Taken Type multivit with min-folic 2 tab PO DAILY 03/20/21 09/17/23 Unknown History acid-lutein 400 mcg-250 mcg chewable tablet (Centrum Silver) Exam Height,Weight and Vital Signs: Height 5 ft 8 in Weight 68.039 kg Vital Signs Temp Pulse Resp BP Pulse Ox O2 Del Method 98.4 F 70 18 125/70 95 Room Air 09/22/23 10:08 09/22/23 10:08 09/22/23 10:08 09/22/23 10:08 09/22/23 10:08 09/22/23 10:08 Airway Mallampati Class: II TM Dist: >3cm Neck ROM: Full Loose/Missing/Broken Teeth: Yes (Poor per patient. Some missing.) Heart: RRR Lungs: CTAB Assessment and Plan Assessment Anesthesia Assessment: Anesthesia Plan Discussed and Chart Reviewed Final Anesthetic Review Family History of Problems with Anesthesia: No History of Problems with Anesthesia: No NPO: Yes ASA Class: III Final Preanesthetic Review: No Changes in Pt Med Stat, Meds/Allgs Chart Reviewed, Consent Obtained/Reviewed and Anes Risks/Benef Reviewed Patient Risk: Intermediate Procedure Risk: Low Assessment/Block/Sedation in SS: Assess/Block/Sedation-SS Anesthetic Plan Anesthetic Plan: TIVA Disposition: Standard PACU
[2023-09-22] MEDS: Lactated Ringers 1,000 ML 50 ML IVCONT (10:23)
--- NOTE | 2023-09-22 10:32 | MHC.SHP ---
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) Ex-smoker for more than 1 year Stress incontinence Depression, major, recurrent Lipid disorder Cerebellar atrophy Peripheral neuropathy COPD (ch) History of Previous Operations: Relevant previous surgery/procedure and date(s) (Hx of eye surgery History of tooth extraction History of colonoscopy (~06/27/19) History of total right hip arthroplasty) Allergies: Allergies Allergy/AdvReac Type Severity Reaction Status Date / Time ENVIROMENTAL Allergy Unknown WHEEZING,CO Uncoded 06/08/23 10:44 UGH Review of Systems Sugical H&P ROS: Negative: Constitution, Cardiovascular, Respiratory, Neurological, Psychiatric, Hem-Onc, Allergic/Immunologic, Gastrointestinal, Genitourinary, Musculoskeletal, Integumentary, Endocrine and Eyes/Ears/Nose/Throat Exam Surgical H&P Exam: Normal: HEENT, Normal: Heart, Normal: Lungs, Normal: Extremities, Normal: Abdomen, Normal: Skin and Normal: Neurological Plan Diagnosis/Plan: Unchanged I have reviewed the history and physical and performed a pertinent physical examination on my patient. No changes have occurred unless specified. Time Spent With Patient Time: Total time managing care of this patient today ____ minutes.
--- NOTE | 2023-09-22 10:33 | P.OP_ITS ---
Operative Note Operative Note Date of Service: 09/22/23 Narrative: Operative Information Procedure Description: Colonoscopy Indication: screening Anesthesia: MAC COLONOSCOPY Instrument: Olympus variable stiffness pediatric scope 190L Colonoscopy Monitoring: Vital signs and clinical assessment, continuous EKG monitoring, Pulse oximetry, Carbon Dioxide monitoring and blood pressure monitoring were done throughout the procedure. Colon withdrawal time was 10 minutes. Procedure: The patient was placed in the left lateral decubitis position and pre-procedure medications were administered. After a digital rectal examination of the ano-rectum, the video colonoscope was inserted into the rectum and advanced through the colon to the cecum/TI. The colonoscope was slowly withdrawn in a retrograde panoramic fashion and the colon mucosa was carefully examined including a retroflexed view of the rectum. Findings and interventions are described below. Procedure Difficulty: difficult due to severe diverticulosis and tight angles Findings: Terminal Ileum-normal Cecum:normal Ascending Colon: diverticulosis Transverse Colon - patchy diverticulosis Descending Colon: moderate diverticulosis Sigmoid Colon: severe diverticulosis with luminal narrowing, and mucosal hypertr ophy - x 1 sessile polyp 6-7 mm removed with cold snare Rectum: Retroflexion with small internal hemorrhoids, grade I, 6-8 mm sessile polyp removed with cold snare Anorectum - normal Colon preparation: [place] Bowel Preparation Scale Right colon; 2 Transverse colon: 2 Left colon; 2 (0 = Unprepared colon segment with mucosa not seen due to solid stool that cannot be cleared. 1 = Portion of mucosa of the colon segment seen, but other areas of the colon segment not well seen due to staining, residual stool and/or opaque liquid. 2 = Minor amount of residual staining, small fragments of stool and/or opaque liquid, but mucosa of colon segment seen well. 3 = Entire mucosa of colon segment seen well with no residual staining, small fragments of stool or opaque liquid) Impression and Post Procedure Diagnosis: polyps internal hemorrhoids diverticular disease Plan: High fiber diet leaflet Avoid straining at stool, epsom salts and sitz bath, anusol supps or cream Repeat Colonoscopy in 5-7 years due to polyps or earlier if clinically indicated Above findings were reviewed with the patient and relevant handouts were provided if indicated.
[2023-09-22 11:04] VITALS: BP 102/48; PULSE 51; RESP 16; TEMP 36.4; O2SAT 98
[2023-09-22 11:19] VITALS: BP 116/60; PULSE 66; RESP 16; O2SAT 96
[2023-09-22 11:34] VITALS: BP 105/55; PULSE 59; RESP 16; O2SAT 97
[2023-09-22 11:42] VITALS: BP 120/82; PULSE 58; RESP 16; TEMP 36.6; O2SAT 97
== END 2023-09-22 12:18 | disposition home or self-care (01) ==
PROVIDERS: PCP Internal Medicine; Visit Provider Internal Medicine Gastroenterology
PROC: 0DJD8ZZ Inspection of Lower Intestinal Tract, Via Natural or Artificial Opening Endoscopic (ICD-10-PCS; CPT 45378; principal; 2023-09-22 12:20)
DX: Z12.11 Encounter for screening for malignant neoplasm of colon (principal); D12.5 Benign neoplasm of sigmoid colon; K62.1 Rectal polyp; K57.30 Diverticulosis of large intestine without perforation or abscess without bleeding; K64.0 First degree hemorrhoids; K56.699 Other intestinal obstruction unspecified as to partial versus complete obstruction; Z86.010 Personal history of colon polyps
CPT/HCPCS: 45385; 88305; J2704

== ENCOUNTER → 2023-09-22 09:26 | Outpatient (BNV) | payer MEDICARE, SELFPAY | PROVIDERS: PCP Internal Medicine; Visit Provider Internal Medicine Gastroenterology | DX: Z12.11 Encounter for screening for malignant neoplasm of colon (principal); K63.5 Polyp of colon; K57.90 Diverticulosis of intestine, part unspecified, without perforation or abscess without bleeding; K64.8 Other hemorrhoids | CPT/HCPCS: 45385 ==

== ENCOUNTER 2023-09-24 13:43 | Outpatient (AMB) | payer MEDICARE, SELFPAY ==
--- NOTE | 2023-09-24 13:44 | A.OFFPC_ITS ---
Vital Signs 09/24/23 13:49 Height 5 ft 8 in Weight 145 lb 4 oz BMI 22.1 BP 142/76 H Blood Pressure Location Rt brachial Position Sitting Pulse 60 Pulse Source Pulse Oximeter Pulse Oximetry (%) 96 Oxygen Delivery Method Room Air Intake Visit Reasons: 3 Month F/U Allergies ENVIROMENTAL Allergy (Unknown, Uncoded 06/08/23 10:44) WHEEZING,COUGH Medication List - Last Reconciled 09/24/23 by Teressa Hendrix MD albuterol sulfate 90 mcg/actuation 2 puffs PO Q4-6H PRN aspirin (Adult Low Dose Aspirin) 81 mg PO .every other day 90 days atorvastatin 40 mg PO DAILY 90 days bisacodyl (Dulcolax (bisacodyl)) 20 mg (4 x 5 mg) PO ONCE 1 day budesonide-formoterol 160-4.5 mcg/actuation (Symbicort) 2 puffs inhalation BID 90 days cyanocobalamin (vitamin B-12) 1,000 mcg PO DAILY 90 days ferrous sulfate 324 mg PO DAILY 90 days fluticasone propionate 50 mcg/actuation (Flonase Allergy Relief) 1 spray intranasal BID gabapentin 300 mg PO TID 90 days lisinopril 5 mg PO DAILY 90 days cj-pml-tocca acid-lutein 400-250 mcg (Centrum Silver) 2 tabs PO DAILY polyethylene glycol 3350 (Miralax) 238 grams PO ONCE PRN 1 day sodium polystyrene sulfonate 15 grams (60 mL) PO DAILY 3 days venlafaxine ER 75 mg PO DAILY 90 days Tobacco use date assessed: 09/24/23 Fall risk assessment: No Falls in past year Last assessed Fall Risk: 09/24/23 Dental Screening Dental Screen Date: 09/24/23 Did you have a dental visit in the last 12 months?: No Did you have a dental problem in the last 6 months where you did not have access to dental care?: No Was dental information given to patient?: No HPI 3 Month F/U HPI Details Patient is 68-year-old female came in today for her regular follow-up appointment Labs done recently reviewed with the patient Fasting sugar came back at 107 TSH level is slightly elevated at 4.34 and vitamin B12 1451 c/o of being tired all the time I am starting her on small dose Levothyroxine We will repeat labs again before next visit before starting own thyroid medication Patient also have a history of hyperparathyroidism, surgery was recommended but she declined She is now requesting a referral to endocrinology, placed Patient is almost blind in her right eye and has a very blurry vision in the left eye secondary to retinal detachment. Other providers patient seeing are Cardiology Dr. Ewing Pulmonary Dr. Foley, COPD: Patient is no longer seeing Dr. Foley so all her inhalers are coming from PCP office She is smoking marijuana, it helps her with her peripheral neuropathy Osteoporosis and goiter management through endocrinology [facility] Neuropathy:? 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 Brother No problems noted. Sister No problems noted. Son No problems noted. Daughter No problems noted. Social History Housing: Apartment Alcohol intake: former Year quit: 2017 Patient Tobacco Use Status: Former Tobacco user Quit Date: 6 years Tobacco use type: Cigarette Years Smoked: 45 (onset 16yo, quit ~2017) e-Cigarette/Vaping Use: Never Used Substance Use Type: Marijuana service: No Current occupational status: disabled Cognitive needs: No Hearing needs: No Vision needs: Yes Questionnaire PHQ-9 Over the last 2 weeks, how often have you been bothered by any of the following problems? 1. Little interest or pleasure in doing things: not at all 2. Feeling down, depressed, or hopeless: not at all 3. Trouble falling or staying asleep, or sleeping too much: several days 4. Feeling tired or having little energy: several days 5. Poor appetite or overeating: not at all 6. Feeling bad about yourself - or that you are a failure or have let yourself or your family down: not at all 7. Trouble concentrating on things, such as reading the newspaper or watching television: not at all 8. Moving or speaking so slowly that other people could have noticed. Or the opposite - being so fidgety or restless that you have been moving around a lot more than usual: not at all 9. Thoughts that you would be better off or of hurting yourself in some way: not at all Total score: 2 Depression Screening Interpretation: Negative Depression Screening Done: Yes 52723 - PHQ-9 Billing: Yes Source: Developed by Drs. Estrada Fish, Kassidy Emery, Bossman Castellanos and colleagues, with an educational jaswant from [employer]. Thrive Questionnaire Date Thrive assessed: 09/24/23 I am a: Patient What is your living situation today?: I have a steady place to live Within the past 12 months, did the food you bought not last and you didn't have the money to get more?: Never true Within the past 12 months, did you worry whether your food would run out before you got money to buy more?: Never true Do you have trouble paying for medicines?: No Do you have trouble getting transportation to medical appointments?: Yes Do you have trouble paying your heating and electricity bill?: No Do you have trouble taking care of your child, family member or friend?: No Do you have trouble with day-to-day activities such as bathing, preparing meals, shopping, managing finances, etc.?: No Are you currently unemployed and looking for a job?: No Are you interested in more education?: No Please select the resources that you would like help with: None Currently or been in a relationship where the following occur: no concerns reported THRIVE Score: 1 AUDIT C Alcohol Use Questionnaire (AUDIT-C) 1. How often do you have a drink containing alcohol?: Never 3. How often do you have six or more drinks on one occasion?: Never Total Score: 0 Score Reviewed/Action Taken: Yes ZOLTAN-7 AMB Questionnaire ZOLTAN-7 Date ZOLTAN - 7 assessed: 09/24/23 Feeling nervous, anxious, or on edge: 0 = Not at all Not being able to stop or control worryin = Not at all Worrying too much about different things: 0 = Not at all Trouble relaxin = Not at all Being so restless that it is hard to sit still: 0 = Not at all Becoming easily annoyed or irritable: 0 = Not at all Feeling afraid as if something awful might happen: 0 = Not at all Total ZOLTAN-7 score (0-4 normal; 5-9 mild; 10-14 moderate; 15-21 severe): 0 Source: Developed by Drs. Estrada Fish, Kassidy Emery, Bossman Castellanos and colleagues, with an educational jaswant from [employer]. ZOLTAN-7 Assessment Billing ZOLTAN-7 Assessment Tool: ZOLTAN-7 Assessment 27727 Review of Systems Const Denies chills, Denies fever(s) and Denies headache(s) ENT Denies headache(s), Denies nasal discharge, Denies nasal obstruction, Denies odynophagia and Denies sinus pain Card Denies chest pain at rest and Denies chest pain with activity Resp Denies cough and Denies hemoptysis GI Denies diarrhea, Denies odynophagia, Denies vomiting and Denies hematemesis Reports as per HPI Skin/Breast Reports as per HPI Neuro Denies Neuro-related abnormal movements, Denies Abnormal speech present and Denies headache(s) Psych Denies mood swings and Denies paranoia Endo Reports as per HPI Genaro/Lymph Reports as per HPI Aller/Immun Reports as per HPI Physical exam (Primary Care) Vital Signs: Last Vital Signs Pulse 60 09/24/23 13:49 BP 142/76 H 09/24/23 13:49 Pulse Ox 96 09/24/23 13:49 Oxygen Delivery Method Room Air 09/24/23 13:49 BMI result Body Mass Index 22.1 Tobacco/Smoking Status: Tobacco use Status Tobacco use date assessed 09/24/23 09/24/23 13:47 Patient Tobacco Use Status Former Tobacco user 09/24/23 13:47 Tobacco use type Cigarette 09/24/23 13:47 e-Cigarette/Vaping Use Never Used 02/23/24 13:47 PHQ-9: PHQ-9 Score PHQ-9: Total score 2 09/24/23 14:24 Depression Screening Interpretation: Negative Thrive Assessment: Date of Thrive Assessment Date Thrive assessed 09/24/23 09/24/23 14:24 Currently or been in a relationship where the following occur: no concerns reported Const General: cooperative, comfortable and no acute distress Orientation/consciousness: patient oriented x3 HENMT Head: Yes normocephalic Eyes General: appearance normal, both eyes and all related structures Neck Neck: Yes supple Resp Effort & Inspection: normal respiratory effort, no cough and no stridor Cardio Rhythm: regular rhythm Heart sounds: S1 normal heart sound present and S2 normal heart sound present Skin General skin exam: turgor normal Neuro General: patient oriented x3, tone normal and moves all extremities Speech: No Abnormal speech present Extrem Right lower extremity: no edema Left lower extremity: no edema Assessment and Plan Assessment & Plan (1) Impaired fasting blood sugar: Code(s): R73.01 - Impaired fasting glucose (2) Elevated TSH: Code(s): R79.89 - Other specified abnormal findings of blood chemistry (3) Hyperparathyroidism: Code(s): E21.3 - Hyperparathyroidism, unspecified (4) Hypertension, essential: Code(s): I10 - Essential (primary) hypertension (5) Peripheral neuropathy: Code(s): G62.9 - Polyneuropathy, unspecified Qualifiers: Peripheral neuropathy type: polyneuropathy, alcohol-induced Qualified Code(s): G62.1 - Alcoholic polyneuropathy (6) Vitamin D deficiency: Code(s): E55.9 - Vitamin D deficiency, unspecified (7) Retinal detachment: Code(s): H33.20 - Serous retinal detachment, unspecified eye Qualifiers: Laterality: unspecified laterality Qualified Code(s): H33.20 - Serous retinal detachment, unspecified eye (8) Age related osteoporosis: Code(s): M81.0 - Age-related osteoporosis without current pathological fracture Qualifiers: Presence of current pathological fracture: without current pathological fracture Qualified Code(s): M81.0 - Age-related osteoporosis without current pathological fracture (9) Lipid disorder: Code(s): E78.9 - Disorder of lipoprotein metabolism, unspecified (10) Stress incontinence: Code(s): N39.3 - Stress incontinence (female) (male) (11) Depression, major, recurrent: Code(s): F33.9 - Major depressive disorder, recurrent, unspecified Qualifiers: Active/Remission status: in full remission Qualified Code(s): F33.42 - Major depressive disorder, recurrent, in full remission (12) Cerebellar atrophy: Comment: Evaluated by Neurology Code(s): G31.9 - Degenerative disease of nervous system, unspecified (13) Allergic rhinitis: Comment: It is mild with to seasonal exacerbations. Using Flonase and Cetrizine 10 mg once a day only p.r.n.. Code(s): J30.9 - Allergic rhinitis, unspecified Qualifiers: Allergic rhinitis seasonality: non-seasonal Allergic rhinitis trigger: other Qualified Code(s): J30.89 - Other allergic rhinitis (14) Asthma, moderate: Comment: Patient has asthma/COPD overlap syndrome. TX: See under COPD Code(s): J45.909 - Unspecified asthma, uncomplicated Qualifiers: Asthma complication type: uncomplicated Asthma persistence: persistent Qualified Code(s): J45.40 - Moderate persistent asthma, uncomplicated (15) COPD (chronic obstructive pulmonary disease): Comment: Patient has moderately severe obstructive airway disorder. Has been quite stable with her current regimen. TX : Symbicort 160-4.52 puffs b.i.d. regularly. ProAir HFA 2 puffs Q 6 hours p.r.n.. For Cough use cough drops as needed. Code(s): J44.9 - Chronic obstructive pulmonary disease, unspecified Qualifiers: COPD type: emphysema Emphysema type: panlobular Qualified Code(s): J43.1 - Panlobular emphysema (16) Osteoporosis: Code(s): M81.0 - Age-related osteoporosis without current pathological fracture Qualifiers: Osteoporosis type: age-related Presence of current pathological fracture: without current pathological fracture Qualified Code(s): M81.0 - Age- related osteoporosis without current pathological fracture Plan Patient is 68-year-old female came in today for her regular follow-up appointment Labs done recently reviewed with the patient Fasting sugar came back at 107 TSH level is slightly elevated at 4.34 and vitamin B12 1451 c/o of being tired all the time I am starting her on small dose Levothyroxine We will repeat labs again before next visit before starting own thyroid medication Patient also have a history of hyperparathyroidism, surgery was recommended but she declined She is now requesting a referral to endocrinology, placed Patient is almost blind in her right eye and has a very blurry vision in the left eye secondary to retinal detachment. Other providers patient seeing are Cardiology Dr. Ewing Pulmonary Dr. Foley, COPD: Patient is no longer seeing Dr. Foley so all her inhalers are coming from PCP office She is smoking marijuana, it helps her with her peripheral neuropathy Osteoporosis and goiter management through endocrinology [facility] Stress incontinence stable Neuropathy:? Taking gabapentin For anxiety patient is on venlafaxine 75 mg Atorvastatin for lipid control Medication list reviewed Follow-up 3 months Orders: Orders Hemoglobin A1c 3 Months R73.01 - Impaired fasting glucose, R79.89 - Other specified abnormal findings of blood chemistry TSH reflex Free T4 3 Months R73.01 - Impaired fasting glucose, R79.89 - Other specified abnormal findings of blood chemistry Thyroglobulin Antibodies 3 Months R73.01 - Impaired fasting glucose, R79.89 - Other specified abnormal findings of blood chemistry Referrals Endocrinology Referral E21.3 - Hyperparathyroidism, unspecified, M81.0 - Age- related osteoporosis without current pathological fracture, R79.89 - Other specified abnormal findings of blood chemistry Medications: New levothyroxine 25 mcg PO DAILY 90 tabs 0RF Coding Level of Care Code Est Pt Level 4 (69551) Diagnoses Impaired fasting blood sugar R73.01 Elevated TSH R79.89 Hyperparathyroidism E21.3 Hypertension, essential I10 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 Peripheral neuropathy type: polyneuropathy, alcohol-induced Vitamin D deficiency E55.9 Retinal detachment, unspecified laterality H33.20 Laterality: unspecified laterality Age-related osteoporosis without current pathological fracture M81.0 Presence of current pathological fracture: without current pathological fracture Lipid disorder E78.9 Stress incontinence N39.3 Recurrent major depressive disorder, in full remission F33.42 Active/Remission status: in full remission Cerebellar atrophy G31.9 Non-seasonal allergic rhinitis due to other allergic trigger J30.89 Allergic rhinitis seasonality: non-seasonal Allergic rhinitis trigger: other Moderate persistent asthma without complication J45.40 Asthma complication type: uncomplicated Asthma persistence: persistent Panlobular emphysema J43.1 COPD type: emphysema Emphysema type: panlobular Age-related osteoporosis without current pathological fracture M81.0 Osteoporosis type: age-related Presence of current pathological fracture: without current pathological fracture Additional Codes ZOLTAN-7 Assessment Billing - ZOLTAN-7 Assessment Tool: ZOLTAN-7 Assessment [id number] ([id number])
[2023-09-24 13:49] VITALS: BP 142/76; PULSE 60; O2SAT 96; BMI 22.1
== END 2023-09-24 14:11 | disposition home or self-care (01) ==
PROVIDERS: PCP Internal Medicine; Visit Provider Internal Medicine
DX: E21.3 Hyperparathyroidism, unspecified (principal); G62.1 Alcoholic polyneuropathy; G31.9 Degenerative disease of nervous system, unspecified; F33.42 Major depressive disorder, recurrent, in full remission; J43.1 Panlobular emphysema; R73.01 Impaired fasting glucose; R79.89 Other specified abnormal findings of blood chemistry; I10 Essential (primary) hypertension; E55.9 Vitamin D deficiency, unspecified; H33.20 Serous retinal detachment, unspecified eye; M81.0 Age-related osteoporosis without current pathological fracture; E78.9 Disorder of lipoprotein metabolism, unspecified
CPT/HCPCS: 99214

== ENCOUNTER 2023-12-03 11:11 | Outpatient (REF) | payer MEDICARE, SELFPAY ==
--- NOTE | ~2023-12-03 | MM_ITS ---
EXAMINATION: MM SCREENING DIGITAL BREAST TOMOSYNTHESIS, BILATERAL CLINICAL INFORMATION: Screening. Asymptomatic. COMPARISON: Mammography: This study is compared with prior exams dating back to 2018. TECHNIQUE: Digital breast tomosynthesis is performed in both the craniocaudal and mediolateral oblique views along with computer-aided detection (CAD). Synthesized 2D images are generated from the tomosynthesis. FINDINGS: There are scattered areas of fibroglandular density (ACR BI-RADS breast composition Category b). There are no significant masses, abnormal calcifications, or other abnormalities. There is a tissue marker in the left breast from prior benign percutaneous biopsy. MM/MM tomosynthesis screening BI IMPRESSION: No mammographic evidence of malignancy. ASSESSMENT: BI-RADS BI-RADS 2 - Benign Findings RECOMMENDATION: Routine annual mammography screening. 1 year F/U This examination should not preclude the clinical evaluation of a suspicious palpable abnormality. This patient's information was entered into a reminder system with a target due date for their next mammogram.
== END 2023-12-03 11:12 | disposition home or self-care (01) ==
LOC: HO.MAMMO 11:11
PROVIDERS: PCP Internal Medicine; Visit Provider Internal Medicine
DX: Z12.31 Encounter for screening mammogram for malignant neoplasm of breast (principal)
CPT/HCPCS: 77063; 77067

== ENCOUNTER → 2023-12-03 11:30 | Outpatient (BNV) | payer MEDICARE, SELFPAY | PROVIDERS: PCP Internal Medicine; Visit Provider Radiology Diagnostic Radiology | DX: Z12.31 Encounter for screening mammogram for malignant neoplasm of breast (principal) | CPT/HCPCS: 77063; 77067 ==

== ENCOUNTER 2023-12-16 09:49 | Outpatient (REF) | payer MEDICARE, SELFPAY ==
[2023-12-16 13:31] LABS: Estimated Average Glucose 120 mg/dL; Hemoglobin A1c % 5.8 % (<6.0)
[2023-12-16 13:54] LABS: TSH reflex Free T4 2.05 uIU/mL (0.32-4.0)
[2023-12-17 12:27] LABS: Thyroglobulin Antibodies <1 IU/mL (< or = 1)
== END 2023-12-16 09:50 | disposition home or self-care (01) ==
LOC: HO.HMGCLDS 09:49
PROVIDERS: PCP Internal Medicine; Visit Provider Internal Medicine
DX: R73.01 Impaired fasting glucose (principal); R79.89 Other specified abnormal findings of blood chemistry
CPT/HCPCS: 36415; 83036; 84443; 86800

== ENCOUNTER 2023-12-17 11:54 | Outpatient (AMB) | payer MEDICARE, SELFPAY ==
[2023-12-17 11:55] VITALS: BP 110/62; PULSE 66; O2SAT 94; BMI 22.4
--- NOTE | 2023-12-17 11:55 | A.OFFPC_ITS ---
Vital Signs 3 12/17/23 11:55 Height 5 ft 8 in Weight 147 lb 2 oz BMI 22.4 BP 110/62 Blood Pressure Location Rt brachial Position Sitting Pulse 66 Pulse Source Pulse Oximeter Pulse Oximetry (%) 94 Oxygen Delivery Method Room Air Intake Visit Reasons: 6 Month F/U Allergies ENVIROMENTAL Allergy (Unknown, Uncoded 06/08/23 10:44) WHEEZING,COUGH Medication List - Last Reconciled 12/17/23 by Teressa Hendrix MD albuterol sulfate 90 mcg/actuation 2 puffs PO Q4-6H PRN aspirin (Adult Low Dose Aspirin) 81 mg PO .every other day 90 days atorvastatin 40 mg PO DAILY 90 days budesonide-formoterol 160-4.5 mcg/actuation (Symbicort) 2 puffs inhalation BID 90 days cyanocobalamin (vitamin B-12) 1,000 mcg PO DAILY 90 days ferrous sulfate 324 mg PO DAILY 90 days fluticasone propionate 50 mcg/actuation (Flonase Allergy Relief) 1 spray intranasal BID gabapentin 300 mg PO TID 90 days levothyroxine 25 mcg PO DAILY lisinopril 5 mg PO DAILY 90 days [id number] acid-lutein 400-250 mcg (Centrum Silver) 2 tabs PO DAILY sodium polystyrene sulfonate 15 grams (60 mL) PO DAILY 3 days venlafaxine ER 75 mg PO DAILY 90 days Tobacco use date assessed: 12/17/23 Fall risk assessment: No Falls in past year Last assessed Fall Risk: 12/17/23 Dental Screening Dental Screen Date: 12/17/23 Did you have a dental visit in the last 12 months?: No Did you have a dental problem in the last 6 months where you did not have access to dental care?: No Was dental information given to patient?: No HPI 6 Month F/U 2 HPI0 Details Patient is 68-year-old female came in today for her regular follow-up appointment She is complaining of pain dose he has requesting a to podiatry Patient is now taking levothyroxine 25 mcg, recently she had labs done through endocrinology her TSH level is normal Patient also have a history of hyperparathyroidism, surgery was recommended but she declined , she is under care of endocrinology for that She already have osteoporosis Patient is almost blind in her right eye and has a very blurry vision in the left eye secondary to retinal detachment. Other providers patient seeing are Cardiology Dr. Ewing She was seeing Pulmonary Dr. Foley, COPD: Patient is no longer seeing Dr. Foley so all her inhalers are coming from PCP office She is smoking marijuana, it helps her with her peripheral neuropathy Stress incontinence stable Neuropathy:? 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) Ex-smoker for more than 1 year Stress incontinence Depression, major, recurrent Lipid disorder Cerebellar atrophy Peripheral neuropathy COPD (chronic obstructive pulmonary disease) Asthma, moderate Alcoholism Allergic rhinitis Surgical History History of esophagogastroduodenoscopy (EGD) Hx of eye surgery History of tooth extraction History of colonoscopy (~06/27/19) History of total right hip arthroplasty Family History Father Diabetes mellitus Mother CAD (coronary artery disease) PNA (pneumonia) Former smoker Brother CAD (coronary artery disease) Myocardial infarction Brother No problems noted. Brother No problems noted. Sister No problems noted. Son No problems noted. Daughter No problems noted. Social History Housing: Apartment Alcohol intake: former Year quit: 2017 Patient Tobacco Use Status: Former Tobacco user Quit Date: 6 years Tobacco use type: Cigarette Years Smoked: 45 (onset 16yo, quit ~2017) e-Cigarette/Vaping Use: Never Used Substance Use Type: Marijuana service: No Current occupational status: disabled Cognitive needs: No Hearing needs: No Vision needs: Yes Questionnaire Thrive Questionnaire Date Thrive assessed: 09/24/23 AUDIT C Alcohol Use Questionnaire (AUDIT-C) 1. How often do you have a drink containing alcohol?: Never 3. How often do you have six or more drinks on one occasion?: Never Total Score: 0 Score Reviewed/Action Taken: Yes ZOLTAN-7 AMB Questionnaire ZOLTAN-7 Date ZOLTAN - 7 assessed: 09/24/23 Source: Developed by Drs. Estrada L. Kassidy Fish, Bossman Castellanos and colleagues, with an educational jaswant from [employer]. Review of Systems Const Denies chills and Denies fever(s) ENT Denies epistaxis and Denies nasal discharge Card Denies chest pain Resp Denies chest congestion, Denies cough and Denies hemoptysis GI Denies diarrhea and Denies nausea Skin/Breast Denies rash Neuro Reports no additional complaints Psych Reports no additional complaints Endo Reports no additional complaints Physical exam (Primary Care) Vital Signs: Last Vital Signs Pulse 66 12/17/23 11:55 BP 110/62 12/17/23 11:55 Pulse Ox 94 12/17/23 11:55 Oxygen Delivery Method Room Air 12/17/23 11:55 BMI result Body Mass Index 22.4 Tobacco/Smoking Status: Tobacco use Status Tobacco use date assessed 12/17/23 12/17/23 12:00 Patient Tobacco Use Status Former Tobacco user 12/17/23 11:56 Tobacco use type Cigarette 12/17/23 11:56 e-Cigarette/Vaping Use Never Used 12/17/23 11:56 Thrive Assessment: Date of Thrive Assessment Date Thrive assessed 09/24/23 12/17/23 11:56 Const General: cooperative, comfortable and no acute distress Orientation/consciousness: patient oriented x3 HENMT Head: Yes normocephalic Eyes General: appearance normal, both eyes and all related structures Neck Neck: Yes supple Resp Effort & Inspection: normal respiratory effort, no cough and no stridor Cardio Rhythm: regular rhythm Heart sounds: S1 normal heart sound present and S2 normal heart sound present Skin General skin exam: turgor normal Neuro General: patient oriented x3, tone normal and moves all extremities Extrem Right lower extremity: no edema Left lower extremity: no edema Ankle/foot/toe images: 2 1. Fifth toe is rubbing next 2 4th which is causing pain Assessment and Plan Assessment & Plan (1) COPD (chronic obstructive pulmonary disease): Comment: Patient has moderately severe obstructive airway disorder. Has been quite stable with her current regimen. [place] : Symbicort 160-4.52 puffs b.i.d. regularly. ProAir HFA 2 puffs Q 6 hours p.r.n.. For Cough use cough drops as needed. Code(s): J44.9 - Chronic obstructive pulmonary disease, unspecified Qualifiers: COPD type: emphysema Emphysema type: panlobular Qualified Code(s): J 43.1 - Panlobular emphysema (2) Depression, major, recurrent: Code(s): F33.9 - Major depressive disorder, recurrent, unspecified Qualifiers: Active/Remission status: in full remission Qualified Code(s): F33.42 - Major depressive disorder, recurrent, in full remission (3) Lipid disorder: Code(s): E78.9 - Disorder of lipoprotein metabolism, unspecified (4) Osteoporosis: Code(s): M81.0 - Age-related osteoporosis without current pathological fracture Qualifiers: Osteoporosis type: age-related Presence of current pathological fracture: without current pathological fracture Qualified Code(s): M81.0 - Age- related osteoporosis without current pathological fracture (5) Vitamin D deficiency: Code(s): E55.9 - Vitamin D deficiency, unspecified (6) Hyperparathyroidism: Code(s): E21.3 - Hyperparathyroidism, unspecified (7) Hypertension, essential: Code(s): I10 - Essential (primary) hypertension (8) Peripheral neuropathy: Code(s): G62.9 - Polyneuropathy, unspecified Qualifiers: Peripheral neuropathy type: polyneuropathy, alcohol-induced Qualified Code(s): G62.1 - Alcoholic polyneuropathy (9) Impaired fasting blood sugar: Code(s): R73.01 - Impaired fasting glucose (10) Pain in toes of both feet: Code(s): M79.674 - Pain in right toe(s); M79.675 - Pain in left toe(s) (11) Stress incontinence: Code(s): N39.3 - Stress incontinence (female) (male) (12) Allergic rhinitis: Comment: It is mild with to seasonal exacerbations. Using Flonase and Cetrizine 10 mg once a day only p.r.n.. Code(s): J30.9 - Allergic rhinitis, unspecified Qualifiers: Allergic rhinitis trigger: other Allergic rhinitis seasonality: non- seasonal Qualified Code(s): J30.89 - Other allergic rhinitis Plan Patient is 68-year-old female came in today for her regular follow-up appointment She is complaining of pain dose he has requesting a to podiatry Patient is now taking levothyroxine 25 mcg, recently she had labs done through endocrinology her TSH level is normal Patient also have a history of hyperparathyroidism, surgery was recommended but she declined , she is under care of endocrinology for that She already have osteoporosis Patient is almost blind in her right eye and has a very blurry vision in the left eye secondary to retinal detachment. Other providers patient seeing are Cardiology Dr. Ewing She was seeing Pulmonary Dr. Foley, COPD: Patient is no longer seeing Dr. Foley so all her inhalers are coming from PCP office She is smoking marijuana, it helps her with her peripheral neuropathy Stress incontinence stable Neuropathy:? Taking gabapentin For anxiety patient is on venlafaxine 75 mg Atorvastatin for lipid control Medication list reviewed Follow-up 3 months Orders: Orders 2 Complete Blood Count Auto Diff Today E21.3 - Hyperparathyroidism, unspecified, E55.9 - Vitamin D deficiency, unspecified, E78.9 - Disorder of lipoprotein metabolism, unspecified, F33.42 - Major depressive disorder, recurrent, in full remission, G62.1 - Alcoholic polyneuropathy, I10 - Essential (primary) hypertension, J43.1 - Panlobular emphysema, M81.0 - Age-related osteoporosis without current pathological fracture, R73.01 - Impaired fasting glucose LDL Cholesterol Direct Today E21.3 - Hyperparathyroidism, unspecified, E55.9 - Vitamin D deficiency, unspecified, E78.9 - Disorder of lipoprotein metabolism, unspecified, F33.42 - Major depressive disorder, recurrent, in full remission, G62.1 - Alcoholic polyneuropathy, I10 - Essential (primary) hypertension, J43.1 - Panlobular emphysema, M81.0 - Age-related osteoporosis without current pathological fracture, R73.01 - Impaired fasting glucose Comprehensive Met. Panel Today E21.3 - Hyperparathyroidism, unspecified, E55.9 - Vitamin D deficiency, unspecified, E78.9 - Disorder of lipoprotein metabolism, unspecified, F33.42 - Major depressive disorder, recurrent, in full remission, G62.1 - Alcoholic polyneuropathy, I10 - Essential (primary) hypertension, J43.1 - Panlobular emphysema, M81.0 - Age-related osteoporosis without current pathological fracture, R73.01 - Impaired fasting glucose Vitamin D 25-OH (D2 and D3) Today E21.3 - Hyperparathyroidism, unspecified, E55.9 - Vitamin D deficiency, unspecified, E78.9 - Disorder of lipoprotein metabolism, unspecified, F33.42 - Major depressive disorder, recurrent, in full remission, G62.1 - Alcoholic polyneuropathy, I10 - Essential (primary) hypertension, J43.1 - Panlobular emphysema, M81.0 - Age-related osteoporosis without current pathological fracture, R73.01 - Impaired fasting glucose Vitamin B12 Today E21.3 - Hyperparathyroidism, unspecified, E55.9 - Vitamin D deficiency, unspecified, E78.9 - Disorder of lipoprotein metabolism, unspecified, F33.42 - Major depressive disorder, recurrent, in full remission, G62.1 - Alcoholic polyneuropathy, I10 - Essential (primary) hypertension, J43.1 - Panlobular emphysema, M81.0 - Age-related osteoporosis without current pathological fracture, R73.01 - Impaired fasting glucose Referrals 2 Podiatry Referral M79.674 - Pain in right toe(s), M79.675 - Pain in left toe(s) Medications: Refilled 2 levothyroxine 25 mcg PO DAILY 90 tabs 3RF Coding Level of Care Code Est Pt Level 4 (53529) Complex EM visit Add On G2211 Diagnoses Panlobular emphysema J43.1 COPD type: emphysema Emphysema type: panlobular Recurrent major depressive disorder, in full remission F33.42 Active/Remission status: in full remission Lipid disorder E78.9 Age-related osteoporosis without current pathological fracture M81.0 Osteoporosis type: age-related Presence of current pathological fracture: without current pathological fracture Vitamin D deficiency E55.9 Hyperparathyroidism E21.3 Hypertension, essential I10 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
== END 2023-12-17 12:14 | disposition home or self-care (01) ==
PROVIDERS: PCP Internal Medicine; Visit Provider Internal Medicine
DX: J43.1 Panlobular emphysema (principal); F33.42 Major depressive disorder, recurrent, in full remission; E21.3 Hyperparathyroidism, unspecified; G62.1 Alcoholic polyneuropathy; E78.9 Disorder of lipoprotein metabolism, unspecified; M81.0 Age-related osteoporosis without current pathological fracture; E55.9 Vitamin D deficiency, unspecified; I10 Essential (primary) hypertension; R73.01 Impaired fasting glucose; M79.674 Pain in right toe(s); M79.675 Pain in left toe(s); N39.3 Stress incontinence (female) (male)
CPT/HCPCS: 99214; G2211

== ENCOUNTER 2024-03-17 11:44 | Outpatient (AMB) | payer MEDICARE, SELFPAY ==
--- NOTE | 2024-03-17 11:48 | A.OFFPC_ITS ---
Vital Signs 3 03/17/24 11:49 Height 5 ft 8 in Weight 145 lb BMI 22.0 BP 118/60 Blood Pressure Location Lt brachial Position Sitting Pulse 65 Pulse Source Pulse Oximeter Pulse Oximetry (%) 95 Oxygen Delivery Method Room Air Intake Visit Reasons: 9 Month F/U Allergies ENVIROMENTAL Allergy (Unknown, Uncoded 06/08/23 10:44) WHEEZING,COUGH Medication List - Last Reconciled 03/17/24 by Teressa Hendrix MD albuterol sulfate 90 mcg/actuation 2 puffs PO Q4-6H PRN aspirin (Adult Low Dose Aspirin) 81 mg PO .every other day 90 days atorvastatin 40 mg PO DAILY 90 days budesonide-formoterol 160-4.5 mcg/actuation (Symbicort) 2 puffs inhalation BID 90 days fluticasone propionate 50 mcg/actuation (Flonase Allergy Relief) 1 spray intranasal BID gabapentin 300 mg PO TID 90 days levothyroxine 25 mcg PO DAILY lisinopril 5 mg PO DAILY 90 days re-wym-aiyyz acid-lutein 400-250 mcg (Centrum Silver) 2 tabs PO DAILY venlafaxine ER 75 mg PO DAILY 90 days Tobacco use date assessed: 03/17/24 Fall risk assessment: No Falls in past year Last assessed Fall Risk: 03/17/24 Dental Screening Dental Screen Date: 03/17/24 Did you have a dental visit in the last 12 months?: No Did you have a dental problem in the last 6 months where you did not have access to dental care?: No Was dental information given to patient?: No HPI 9 Month F/U 2 HPI0 Details Patient is 68-year-old female came in today for her regular follow-up appointment Patient has injured her right ankle 2 weeks ago, she is not sure what she did But it is swollen, patient says that pain has gotten better she is able to walk on it I have ordered x-ray of ankle and she is to start physical therapy, range of motion is intact but sore to palpation Patient is now taking levothyroxine 25 mcg, recently she had labs done through endocrinology her TSH level is normal Patient also have a history of hyperparathyroidism, surgery was recommended but she declined , she is under care of endocrinology for that She has osteoporosis, however her last calcium was within normal limit earlier this year Patient is almost blind in her right eye and has a very blurry vision in the left eye secondary to retinal detachment. Other providers patient seeing are Cardiology Dr. Ewing She was seeing Pulmonary Dr. Foley, COPD: Patient is no longer seeing Dr. Foley so all her inhalers are coming from PCP office She is smoking marijuana, it helps her with her peripheral neuropathy Stress incontinence stable Neuropathy:? 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) Ex-smoker for more than 1 year Stress incontinence Depression, major, recurrent Lipid disorder Cerebellar atrophy Peripheral neuropathy COPD (chronic obstructive pulmonary disease) Asthma, moderate Alcoholism Allergic rhinitis Surgical History History of esophagogastroduodenoscopy (EGD) Hx of eye surgery History of tooth extraction History of colonoscopy (~06/27/19) History of total right hip arthroplasty Family History Father Diabetes mellitus Mother CAD (coronary artery disease) PNA (pneumonia) Former smoker Brother CAD (coronary artery disease) Myocardial infarction Brother No problems noted. Brother No problems noted. Sister No problems noted. Son No problems noted. Daughter No problems noted. Social History Housing: Apartment Alcohol intake: former Year quit: 2017 Patient Tobacco Use Status: Former Tobacco user Tobacco use type: Cigarette Years Smoked: 45 (onset 16yo, quit ~2017) e-Cigarette/Vaping Use: Never Used Substance Use Type: Marijuana service: No Current occupational status: disabled Cognitive needs: No Hearing needs: No Vision needs: Yes Questionnaire PHQ-9 Over the last 2 weeks, how often have you been bothered by any of the following problems? 1. Little interest or pleasure in doing things: several days 2. Feeling down, depressed, or hopeless: not at all 3. Trouble falling or staying asleep, or sleeping too much: not at all 4. Feeling tired or having little energy: not at all 5. Poor appetite or overeating: not at all 6. Feeling bad about yourself - or that you are a failure or have let yourself or your family down: not at all 7. Trouble concentrating on things, such as reading the newspaper or watching television: not at all 8. Moving or speaking so slowly that other people could have noticed. Or the opposite - being so fidgety or restless that you have been moving around a lot more than usual: not at all 9. Thoughts that you would be better off or of hurting yourself in some way: not at all Total score: 1 Depression Screening Interpretation: Negative Depression Screening Done: Yes 48804 - PHQ-9 Billing: Yes Source: Developed by Drs. Estrada Fish, Kassidy Emery, Bossman Castellanos and colleagues, with an educational jaswant from [employer]. Thrive Questionnaire Date Thrive assessed: 09/24/23 AUDIT C Alcohol Use Questionnaire (AUDIT-C) 1. How often do you have a drink containing alcohol?: Never 3. How often do you have six or more drinks on one occasion?: Never Total Score: 0 Score Reviewed/Action Taken: Yes ZOLTAN-7 AMB Questionnaire ZOLTAN-7 Date ZOLTAN - 7 assessed: 09/24/23 Source: Developed by Drs. Estrada Fish, Kassidy Emery, Bossman Castellanos and colleagues, with an educational jaswant from [employer]. Review of Systems Const Denies chills and Denies fever(s) ENT Denies epistaxis and Denies nasal discharge Card Denies chest pain Resp Denies chest congestion, Denies cough and Denies hemoptysis GI Denies diarrhea and Denies nausea Skin/Breast Denies rash Neuro Reports no additional complaints Psych Reports no additional complaints Endo Reports no additional complaints Physical exam (Primary Care) Vital Signs: Last Vital Signs Pulse 65 03/17/24 11:49 BP 118/60 03/17/24 11:49 Pulse Ox 95 03/17/24 11:49 Oxygen Delivery Method Room Air 03/17/24 11:49 BMI result Body Mass Index 22.0 Tobacco/Smoking Status: Tobacco use Status Tobacco use date assessed 03/17/24 03/17/24 11:55 Patient Tobacco Use Status Former Tobacco user 03/17/24 11:55 Tobacco use type Cigarette 08/16/24 11:55 e-Cigarette/Vaping Use Never Used 03/17/24 11:55 PHQ-9: PHQ-9 Score PHQ-9: Total score 1 03/17/24 12:24 Depression Screening Interpretation: Negative Thrive Assessment: Date of Thrive Assessment Date Thrive assessed 09/24/23 03/17/24 11:55 Const General: cooperative, comfortable and no acute distress Orientation/consciousness: patient oriented x3 HENMT Head: Yes normocephalic Eyes General: appearance normal, both eyes and all related structures Neck Neck: Yes supple Resp Effort & Inspection: normal respiratory effort, no cough and no stridor Cardio Rhythm: regular rhythm Heart sounds: S1 normal heart sound present and S2 normal heart sound present Skin General skin exam: turgor normal Neuro General: patient oriented x3, tone normal and moves all extremities Extrem Ankle/foot/toe images: 2 1. Tender to palpation with swelling, no ecchymosis, dorsalis pedis pulse 2 +, able to move all toes Assessment and Plan Assessment & Plan (1) Right ankle injury: Code(s): S99.911A - Unspecified injury of right ankle, initial encounter Qualifiers: Encounter type: initial encounter Qualified Code(s): S99.911A - Unspecified injury of right ankle, initial encounter (2) Hypertension, essential: Code(s): I10 - Essential (primary) hypertension (3) Peripheral neuropathy: Code(s): G62.9 - Polyneuropathy, unspecified Qualifiers: Peripheral neuropathy type: polyneuropathy, other Qualified Code(s): G 62.89 - Other specified polyneuropathies (4) Impaired fasting blood sugar: Code(s): R73.01 - Impaired fasting glucose (5) Other specified hypothyroidism: Code(s): E03.8 - Other specified hypothyroidism (6) Lipid disorder: Code(s): E78.9 - Disorder of lipoprotein metabolism, unspecified (7) Lipid disorder: Code(s): E78.9 - Disorder of lipoprotein metabolism, unspecified (8) Depression, major, recurrent: Code(s): F33.9 - Major depressive disorder, recurrent, unspecified Qualifiers: Active/Remission status: in full remission Qualified Code(s): F33.42 - Major depressive disorder, recurrent, in full remission (9) Stress incontinence: Code(s): N39.3 - Stress incontinence (female) (male) (10) Cerebellar atrophy: Comment: Evaluated by Neurology Code(s): G31.9 - Degenerative disease of nervous system, unspecified (11) COPD (chronic obstructive pulmonary disease): Comment: Patient has moderately severe obstructive airway disorder. Has been quite stable with her current regimen. [place] : Symbicort 160-4.52 puffs b.i.d. regularly. ProAir HFA 2 puffs Q 6 hours p.r.n.. For Cough use cough drops as needed. Code(s): J44.9 - Chronic obstructive pulmonary disease, unspecified Qualifiers: COPD type: emphysema Emphysema type: panlobular Qualified Code(s): J 43.1 - Panlobular emphysema (12) Vitamin D deficiency: Code(s): E55.9 - Vitamin D deficiency, unspecified (13) Osteoporosis: Code(s): M81.0 - Age-related osteoporosis without current pathological fracture Qualifiers: Osteoporosis type: age-related Presence of current pathological fracture: without current pathological fracture Qualified Code(s): M81.0 - Age- related osteoporosis without current pathological fracture (14) Hyperparathyroidism: Code(s): E21.3 - Hyperparathyroidism, unspecified (15) Peripheral neuropathy: Code(s): G62.9 - Polyneuropathy, unspecified Qualifiers: Peripheral neuropathy type: polyneuropathy, alcohol-induced Qualified Code(s): G62.1 - Alcoholic polyneuropathy (16) Allergic rhinitis: Comment: It is mild with to seasonal exacerbations. Using Flonase and Cetrizine 10 mg once a day only p.r.n.. Code(s): J30.9 - Allergic rhinitis, unspecified Qualifiers: Allergic rhinitis seasonality: non-seasonal Allergic rhinitis trigger: other Qualified Code(s): J30.89 - Other allergic rhinitis Plan Patient is 68-year-old female came in today for her regular follow-up appointment Patient has injured her right ankle 2 weeks ago, she is not sure what she did But it is swollen, patient says that pain has gotten better she is able to walk on it I have ordered x-ray of ankle and she is to start physical therapy, range of motion is intact but sore to palpation Patient is now taking levothyroxine 25 mcg, recently she had labs done through endocrinology her TSH level is normal Patient also have a history of hyperparathyroidism, surgery was recommended but she declined , she is under care of endocrinology for that She has osteoporosis, however her last calcium was within normal limit earlier this year Patient is almost blind in her right eye and has a very blurry vision in the left eye secondary to retinal detachment. Other providers patient seeing are Cardiology Dr. Ewing She was seeing Pulmonary Dr. Foley, COPD: Patient is no longer seeing Dr. Foley so all her inhalers are coming from PCP office She is smoking marijuana, it helps her with her peripheral neuropathy Stress incontinence stable Neuropathy:? Taking gabapentin For anxiety patient is on venlafaxine 75 mg Atorvastatin for lipid control Medication list reviewed, order placed for labs to be done before next visit Follow-up 3 months Orders: Orders 2 Comprehensive [place]. Panel Fast Today E03.8 - Other specified hypothyroidism, E55.9 - Vitamin D deficiency, unspecified, E78.9 - Disorder of lipoprotein metabolism, unspecified, F33.42 - Major depressive disorder, recurrent, in full remission, G31.9 - Degenerative disease of nervous system, unspecified, G62.89 - Other specified polyneuropathies, I10 - Essential (primary) hypertension, J43.1 - Panlobular emphysema, M85.80 - Other specified disorders of bone density and structure, unspecified site, N39.3 - Stress incontinence (female) (male), R73.01 - Impaired fasting glucose TSH reflex Free T4 Today E03.8 - Other specified hypothyroidism, E55.9 - Vitamin D deficiency, unspecified, E78.9 - Disorder of lipoprotein metabolism, unspecified, F33.42 - Major depressive disorder, recurrent, in full remission, G31.9 - Degenerative disease of nervous system, unspecified, G62.89 - Other specified polyneuropathies, I10 - Essential (primary) hypertension, J43.1 - Panlobular emphysema, M85.80 - Other specified disorders of bone density and structure, unspecified site, N39.3 - Stress incontinence (female) (male), R73.01 - Impaired fasting glucose Vitamin D 25-OH (D2 and D3) Today E03.8 - Other specified hypothyroidism, E55.9 - Vitamin D deficiency, unspecified, E78.9 - Disorder of lipoprotein metabolism, unspecified, F33.42 - Major depressive disorder, recurrent, in full remission, G31.9 - Degenerative disease of nervous system, unspecified, G62.89 - Other specified polyneuropathies, I10 - Essential (primary) hypertension, J43.1 - Panlobular emphysema, M85.80 - Other specified disorders of bone density and structure, unspecified site, N39.3 - Stress incontinence (female) (male), R73.01 - Impaired fasting glucose Vitamin B12 Today E03.8 - Other specified hypothyroidism, E55.9 - Vitamin D deficiency, unspecified, E78.9 - Disorder of lipoprotein metabolism, unspecified, F33.42 - Major depressive disorder, recurrent, in full remission, G31.9 - Degenerative disease of nervous system, unspecified, G62.89 - Other specified polyneuropathies, I10 - Essential (primary) hypertension, J43.1 - Panlobular emphysema, M85.80 - Other specified disorders of bone density and structure, unspecified site, N39.3 - Stress incontinence (female) (male), R73.01 - Impaired fasting glucose Complete Blood Count Auto Diff Today E03.8 - Other specified hypothyroidism, E55.9 - Vitamin D deficiency, unspecified, E78.9 - Disorder of lipoprotein metabolism, unspecified, F33.42 - Major depressive disorder, recurrent, in full remission, G31.9 - Degenerative disease of nervous system, unspecified, G62.89 - Other specified polyneuropathies, I10 - Essential (primary) hypertension, J43.1 - Panlobular emphysema, M85.80 - Other specified disorders of bone density and structure, unspecified site, N39.3 - Stress incontinence (female) (male), R73.01 - Impaired fasting glucose Lipid Panel Today E03.8 - Other specified hypothyroidism, E55.9 - Vitamin D deficiency, unspecified, E78.9 - Disorder of lipoprotein metabolism, unspecified, F33.42 - Major depressive disorder, recurrent, in full remission, G31.9 - Degenerative disease of nervous system, unspecified, G62.89 - Other specified polyneuropathies, I10 - Essential (primary) hypertension, J43.1 - Panlobular emphysema, M85.80 - Other specified disorders of bone density and structure, unspecified site, N39.3 - Stress incontinence (female) (male), R73.01 - Impaired fasting glucose PT Evaluation and Treatment Today S99.911A - Unspecified injury of right ankle, initial encounter Coding Level of Care Code Est Pt Level 4 (66727) Complex EM visit Add On G2211 Diagnoses Injury of right ankle, initial encounter S99.911A Encounter type: initial encounter Hypertension, essential I10 Other polyneuropathy G62.89 Peripheral neuropathy type: polyneuropathy, other Impaired fasting blood sugar R73.01 Other specified hypothyroidism E03.8 Lipid disorder E78.9 Recurrent major depressive disorder, in full remission F33.42 Active/Remission status: in full remission Stress incontinence N39.3 Cerebellar atrophy G31.9 Panlobular emphysema J43.1 COPD type: emphysema Emphysema type: panlobular Vitamin D deficiency E55.9 Age-related osteoporosis without current pathological fracture M81.0 Osteoporosis type: age-related Presence of current pathological fracture: without current pathological fracture Hyperparathyroidism E21.3 Non-seasonal allergic rhinitis due to other allergic trigger J30.89 Allergic rhinitis seasonality: non-seasonal Allergic rhinitis trigger: other
[2024-03-17 11:49] VITALS: BP 118/60; PULSE 65; O2SAT 95; BMI 22.0
== END 2024-03-17 12:13 | disposition home or self-care (01) ==
PROVIDERS: PCP Internal Medicine; Visit Provider Internal Medicine
DX: J43.1 Panlobular emphysema (principal); S99.911A Unspecified injury of right ankle, initial encounter; F33.42 Major depressive disorder, recurrent, in full remission; G31.9 Degenerative disease of nervous system, unspecified; E21.3 Hyperparathyroidism, unspecified; G62.1 Alcoholic polyneuropathy; I10 Essential (primary) hypertension; G62.89 Other specified polyneuropathies; R73.01 Impaired fasting glucose; E03.8 Other specified hypothyroidism; N39.3 Stress incontinence (female) (male); E78.9 Disorder of lipoprotein metabolism, unspecified
CPT/HCPCS: 99214; G2211

== ENCOUNTER 2024-03-17 12:13 | Outpatient (REF) | payer MEDICARE, SELFPAY ==
--- NOTE | ~2024-03-17 | XR_ITS ---
EXAMINATION: XR ANKLE, RIGHT CLINICAL INFORMATION: Right ankle injury. COMPARISON: Right ankle radiographs dated 10/09/2015. TECHNIQUE: AP, lateral, and mortise views of the right ankle. FINDINGS: No acute fracture or dislocation. The ankle mortise is maintained. No joint space narrowing or marginal osteophytes. No osseous erosion. Minimal circumferential soft tissue swelling, decreased when compared to the prior radiographs. XR/XR ankle RT min 3V IMPRESSION: Minimal circumferential soft tissue swelling, decreased when compared to the prior radiographs. No acute osseous abnormality.
== END 2024-03-17 12:14 | disposition home or self-care (01) ==
LOC: HO.HMGCX 12:13
PROVIDERS: PCP Internal Medicine; Visit Provider Internal Medicine
DX: S99.911D Unspecified injury of right ankle, subsequent encounter (principal)
CPT/HCPCS: 73610

== ENCOUNTER 2024-05-09 10:00 | Outpatient (RCR) | payer MEDICARE, SELFPAY ==
--- NOTE | 2024-04-25 12:54 | MHC.PT.EP ---
[facility] [place] Office [place] Office [place] Office [address] Ronak Martinez [address] [phone] F: [phone] F: [phone] F: [phone] F: [phone] Physical Therapy Plan of Care Date of Evaluation: 04/25/24 Date of Surgery: Diagnosis: Right ankle injury. Assessment: Patient is a 68 year old R handed female who presents with s/s consistent with R ankle injury, pain. She is disabled and not working but likes to stay active during the day at home and in the community. Patient past medical history includes history of cancer, osteoporosis, COPD, depression and alcoholism. Current impairments include pain, balance, ROM, strength, activity tolerance and functional mobility. Functional limitations include decreased ability to walk, stand, squat, negotiate stairs and perform standing activities. Patient is motivated with good rehab potential. Skilled PT will address impairments and functional limitations in order to achieve goals. Frequency and Duration: The patient will be seen 2x/week for 5 weeks Short Term Goals: I with HEP - 2 weeks AROM WNL - 3 weeks Swelling absent - 3 weeks Long-Term Goals: LEFS 48/80 - 5 weeks Ankle strength 4+/5 grossly - 5 weeks Gait mechanics symmetrical - 5 weeks SLB > 10 seconds on firm - 5 weeks Treatment Plan: Modalities to reduce pain, spasms and effusion. Manual therapy to restore motion and function. Therapeutic exercise to improve strength and flexibility. Neuromuscular re-education for posture and balance. Therapeutic activities to return to functional activities of daily living. Electronically signed by: Adal Kraus, PT Please sign and return to therapist. Thank you for your referral.
--- NOTE | 2024-10-20 07:39 | MHC.PT.DC ---
[facility] [place] Office [place] Office [place] Office [address] Ronak Martinez [address] [phone] F: [phone] F: [phone] F: [phone] F: [phone] Physical Therapy Discharge Report Diagnosis: Right ankle injury. Date of Surgery: Date of Evaluation: 04/25/24 Date of Discharge: 06/22/24 Treatments to Date: 3 Cancellations to Date: No Shows to Date: Discharge Status: Independent with HEP Patient Elected to Stop Discharge Summary: 05/09/24: pt progressing. ROM and strength improving. gait mechanics improved. 05/02/24: pt progressing well with skilled PT. added ROM, flex, strength, balance today. no adverse reactions. continue to progress as tolerated. Patient is a 68 year old R handed female who presents with s/s consistent with R ankle injury, pain. She is disabled and not working but likes to stay active during the day at home and in the community. Patient past medical history includes history of cancer, osteoporosis, COPD, depression and alcoholism. Current impairments include pain, balance, ROM, strength, activity tolerance and functional mobility. Functional limitations include decreased ability to walk, stand, squat, negotiate stairs and perform standing activities. Patient is motivated with good rehab potential. Skilled PT will address impairments and functional limitations in order to achieve goals. Electronically signed by: Adal Kraus, PT Please sign and return to therapist. Thank you for your referral.
== END 2024-10-20 07:39 | disposition home or self-care (01) ==
LOC: HO.PTCHIC 10:00
PROVIDERS: PCP Internal Medicine; Visit Provider Internal Medicine
DX: S99.911D Unspecified injury of right ankle, subsequent encounter (principal)
CPT/HCPCS: 97110; 97112; 97162

== ENCOUNTER 2024-07-14 10:48 | Outpatient (REF) | payer MEDICARE, SELFPAY ==
[2024-07-14 13:11] LABS: MANUAL DIFF FLAG NO
[2024-07-14 13:25] LABS: Basophils Percent Auto 0.5 % (0-2); Eosinophils Absolute Auto 0.2 X10*3/uL (0.0-0.4); Eosinophils Percent Auto 3.8 % (0-4); Hematocrit 35.9 % (37.0-47.0); Hemoglobin 11.5 g/dl (12.0-16.0); Imm Gran Abs Auto 0.01 X10*3/uL (0.00-0.03); Imm Gran Pct Auto 0.2 % (0.0-0.4); Lymphocytes Absolute Auto 1.1 X10*3/uL (1.2-4.9); Lymphocytes Percent Auto 18.8 % (20-40); Mean Corpuscular Hemoglobin 30.1 pg (27.0-33.0); Mean Platelet Volume 9.9 fL (9.4-12.3); Monocytes Absolute Auto 0.7 X10*3/uL (0.1-1.2); Monocytes Percent Auto 11.7 % (2-11); Platelet Count 298 X10*3/uL (160-400); Red Blood Count 3.82 X10*6/uL (4.20-5.50); Red Cell Distribution Width 12.8 % (11.0-16.0); White Blood Count 6.1 X10*3/uL (4.8-10.8)
[2024-07-14 13:58] LABS: Alanine Aminotransferase 20 U/L (0-31); Albumin Level 4.2 g/dL (3.5-5.0); Alkaline Phosphatase 66 U/L (39-117); Anion Gap 12 (12-20); Aspartate Amino Transferase 26 U/L (5-31); Bilirubin Total 0.3 mg/dL (0.0-1.0); Blood Urea Nitrogen 14 mg/dL (9-16); Calcium 9.6 mg/dL (8.4-10.2); Carbon Dioxide 29 mmol/L (22-29); Chloride 105 mmol/L (96-108); Estimated Glomerular Filt Rate > 60; Glucose Random 107 mg/dL (60-115); Potassium 5.2 mmol/L (3.3-5.1); Sodium 141 mmol/L (135-145); Total Protein 7.2 g/dL (6.5-8.0)
[2024-07-14 14:00] LABS: TSH reflex Free T4 1.65 uIU/mL (0.32-4.0)
[2024-07-14 14:21] LABS: Vitamin B12 1075 pg/mL (200-900)
[2024-07-15 15:43] LABS: LDL Cholesterol Direct 62 mg/dL (<100)
[2024-07-20 15:28] LABS: Vitamin D 25-OH, D2 <4 ng/mL; Vitamin D 25-OH, D3 42 ng/mL; Vitamin D 25-OH, Total 42 ng/mL (30-100)
== END 2024-07-14 10:49 | disposition home or self-care (01) ==
LOC: HO.HMGCLDS 10:48
PROVIDERS: PCP Internal Medicine; Visit Provider Internal Medicine
DX: Z00.01 Encounter for general adult medical examination with abnormal findings (principal); G62.89 Other specified polyneuropathies; E78.9 Disorder of lipoprotein metabolism, unspecified; H53.8 Other visual disturbances; E55.9 Vitamin D deficiency, unspecified; I10 Essential (primary) hypertension; R73.01 Impaired fasting glucose; E03.8 Other specified hypothyroidism; R26.81 Unsteadiness on feet; R06.00 Dyspnea, unspecified; Z79.899 Other long term (current) drug therapy
CPT/HCPCS: 36415; 80053; 82306; 82607; 83721; 84443; 85025; 99397

== ENCOUNTER 2024-07-14 10:48 | Outpatient (AMB) | payer MEDICARE, SELFPAY ==
[2024-07-14 10:52] VITALS: BP 126/72; PULSE 65; O2SAT 97; BMI 22.5
--- NOTE | 2024-07-14 10:52 | A.OFFPC_ITS ---
Vital Signs 07/14/24 10:52 Height 5 ft 8 in Weight 148 lb 2 oz BMI 22.5 BP 126/72 Blood Pressure Location Lt brachial Position Sitting Pulse 65 Pulse Source Pulse Oximeter Pulse Oximetry (%) 97 Oxygen Delivery Method Room Air Intake Visit Reasons: Annual PE - see comments Allergies ENVIROMENTAL Allergy (Unknown, Uncoded 06/08/23 10:44) WHEEZING,COUGH Medication List - Last Reconciled 07/14/24 by Teressa Hendrix MD albuterol sulfate 90 mcg/actuation 2 puffs PO Q4-6H PRN aspirin (Adult Low Dose Aspirin) 81 mg PO .every other day 90 days atorvastatin 40 mg PO DAILY 90 days budesonide-formoterol 160-4.5 mcg/actuation (Symbicort) 2 puffs inhalation BID 90 days fluticasone propionate 50 mcg/actuation (Flonase Allergy Relief) 1 spray intranasal BID gabapentin 300 mg PO TID 90 days levothyroxine 25 mcg PO DAILY lisinopril 5 mg PO DAILY 90 days ukemostk-cll-plfpv acid-lutein 400-250 mcg (Centrum Silver) 2 tabs PO DAILY venlafaxine ER 75 mg PO DAILY 90 days Tobacco use date assessed: 07/14/24 Fall risk assessment: No Falls in past year Last assessed Fall Risk: 07/14/24 Dental Screening Dental Screen Date: 07/14/24 Did you have a dental visit in the last 12 months?: No Did you have a dental problem in the last 6 months where you did not have access to dental care?: No Was dental information given to patient?: No HPI Annual PE - see comments HPI Details Chief Complaint: Physical exam The patient presented with trouble breathing and requested a refill for albuterol sulfate. Assessment and Plan A 68-year-old female with a history of dyspnea presenting for a follow-up physical examination and evaluation of respiratory difficulty. The patient's primary concern is shortness of breath, for which she uses an albuterol inhaler. She reports difficulty with coordination and balance, contributing to potential falls. The patient's overall condition appears stable, with no acute respiratory distress noted during the physical examination. Current medications are managing her respiration adequately, but there seems to be an issue with the prescription supply via mail order service, necessitating a refill of albuterol sulfate. Additionally, a balance issue may be attributed to visual disturbances and needs further investigation. 1. Medication Refill Albuterol Sulfate A new prescription for albuterol sulfate was issued to address the patient's previous difficulties with obtaining inhalers through her mail-order pharmacy. Monitor for compliance and ensure prescription is adequately filled prior to exhaustion of current stock. 2. Unsteadiness on feet R26.81 The patient experiences unsteadiness, likely related to visual discrepancies noted in the visit. Advise considering visual assessment and recommending appropriate modifications in daily activities to minimize fall risk. 3. Dyspnea The patient's respiratory status is stable, with no wheezing auscultated during examination. Continue current medication regimen with albuterol sulfate as a rescue inhaler. A prescription refill has been sent to [facility] mail order. Monitor symptoms and advise the patient to call if there's any exacerbation. Diagnostic results - Labs: Pending scheduled non-fasting la b tests based on previous November order for routine evaluation. Problem List - Dyspnea - Medication Refill: Albuterol Sulfate - Unsteadiness Health Maintenance - Patient confirmed the completion of ma mmogram screening in December 2023 and colonoscopy earlier in the year. - Flu and COVID vaccines have been admin istered. - Discussed tetanus vaccine status, conf irming it was received in 2018 and is up-to-date. - colonoscopy September of this year by Esdras Price, next 1 will be in 5-7 years - no longer having Pap smears Medication list reviewed Patient Instructions - Continue using the daily maintenance i nhaler as prescribed. - Take the prescribed albuterol sulfate only when needed for shortness of breath. - Schedule and complete the non-fasting lab tests as ordered. - Remain vigilant about balance issues, and adopt fall prevention strategies at home. - Monitor respiratory symptoms and seek care if breathing becomes more difficult. - Schedule a follow-up appointment as ad vised and return in September for review. 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) Ex-smoker for more than 1 year Stress incontinence Depression, major, recurrent Lipid disorder Cerebellar atrophy Peripheral neuropathy COPD (chronic obstructive pulmonary disease) Asthma, moderate Alcoholism Allergic rhinitis Surgical History History of esophagogastroduodenoscopy (EGD) Hx of eye surgery History of tooth extraction History of colonoscopy (~06/27/19) History of total right hip arthroplasty Family History Father Diabetes mellitus Mother CAD (coronary artery disease) PNA (pneumonia) Former smoker Brother CAD (coronary artery disease) Myocardial infarction Brother No problems noted. Brother No problems noted. Sister No problems noted. Son No problems noted. Daughter No problems noted. Social History Housing: Apartment Alcohol intake: former Year quit: 2017 Patient Tobacco Use Status: Former Tobacco user Tobacco use type: Cigarette Years Smoked: 45 (onset 16yo, quit ~2016) e-Cigarette/Vaping Use: Never Used Substance Use Type: Marijuana service: No Current occupational status: disabled Cognitive needs: No Hearing needs: No Vision needs: Yes Questionnaire Thrive Questionnaire Date Thrive assessed: 09/24/23 AUDIT C Alcohol Use Questionnaire (AUDIT-C) 1. How often do you have a drink containing alcohol?: Never 3. How often do you have six or more drinks on one occasion?: Never Total Score: 0 Score Reviewed/Action Taken: Yes ZOLTAN-7 AMB Questionnaire ZOLTAN-7 Date ZOLTAN - 7 assessed: 09/24/23 Source: Developed by Drs. Estrada Fish, Kassidy Emery, Bossman Castellanos and colleagues, with an educational jaswant from [employer]. Review of Systems Const Denies chills, Denies fever(s) and Denies headache(s) ENT Denies headache(s), Denies nasal discharge, Denies nasal obstruction, Denies odynophagia and Denies sinus pain Card Denies chest pain at rest and Denies chest pain with activity Resp Denies cough and Denies hemoptysis GI Denies diarrhea, Denies odynophagia, Denies vomiting and Denies hematemesis Reports as per HPI Skin/Breast Reports as per HPI Neuro Denies Neuro-related abnormal movements, Denies Abnormal speech present and Denies headache(s) Psych Denies mood swings and Denies paranoia Endo Reports as per HPI Genaro/Lymph Reports as per HPI Aller/Immun Reports as per HPI Physical exam (Primary Care) Vital Signs: Last Vital Signs Pulse 65 07/14/24 10:52 BP 126/72 07/14/24 10:52 Pulse Ox 97 07/14/24 10:52 Oxygen Delivery Method Room Air 07/14/24 10:52 BMI result Body Mass Index 22.5 Tobacco/Smoking Status: Tobacco use Status Tobacco use date assessed 07/14/24 07/14/24 10:56 Patient Tobacco Use Status Former Tobacco user 07/14/24 10:56 Tobacco use type Cigarette 07/14/24 10:56 e-Cigarette/Vaping Use Never Used 07/14/24 10:56 Thrive Assessment: Date of Thrive Assessment Date Thrive assessed 09/24/23 07/14/24 10:56 Const General: cooperative, comfortable and no acute distress Orientation/consciousness: patient oriented x3 HENMT Head: Yes normocephalic and Yes atraumatic Eyes General: appearance normal, both eyes and all related structures Pupils: Equal, round and reactive pupils present EOM: EOMs intact bilaterally Neck Neck: Yes supple and No lymphadenopathy Thyroid: Thyroid normal Lymphatic: no lymphadenopathy noted Resp Effort & Inspection: normal respiratory effort and able to speak in complete sentences Auscultation: clear to auscultation bilaterally Cardio Heart sounds: S1 normal heart sound present and S2 normal heart sound present GI Palpation (GI): Soft to palpation and nontender Auscultation: normal bowel sounds General: Yes no CVA tenderness Back/Spine/Pelvis Back: no CVA tenderness Skin General skin exam: elasticity normal and turgor normal Neuro General: patient oriented x3 Cranial nerves: Yes Equal, round and reactive pupils present Speech: No Abnormal speech present Extrem General: Yes normal exam except as noted and No edema Coding Level of Care Code Est Pt Prev Care >65y(53679) Diagnoses Adult general medical examination Z00.00 Other polyneuropathy G62.89 Peripheral neuropathy type: polyneuropathy, other Lipid disorder E78.9 Blurring of vision H53.8 Vitamin D deficiency E55.9 Hypertension, essential I10 Impaired fasting blood sugar R73.01 Other specified hypothyroidism E03.8 Assessment & Plan Assessment & Plan (1) Adult general medical examination: Code(s): Z00.00 - Encounter for general adult medical examination without abnormal findings Category: Medical (2) Peripheral neuropathy: Code(s): G62.9 - Polyneuropathy, unspecified Category: Medical Qualifiers: Peripheral neuropathy type: polyneuropathy, other Qualified Code(s): G62.89 - Other specified polyneuropathies (3) Lipid disorder: Code(s): E78.9 - Disorder of lipoprotein metabolism, unspecified Category: Medical (4) Blurring of vision: Code(s): H53.8 - Other visual disturbances Category: Medical (5) Vitamin D deficiency: Code(s): E55.9 - Vitamin D deficiency, unspecified Category: Medical (6) Hypertension, essential: Code(s): I10 - Essential (primary) hypertension Category: Medical (7) Impaired fasting blood sugar: Code(s): R73.01 - Impaired fasting glucose Category: Medical (8) Other specified hypothyroidism: Code(s): E03.8 - Other specified hypothyroidism Category: Medical Plan Chief Complaint: Physical exam The patient presented with trouble breathing and requested a refill for albuterol sulfate. Assessment and Plan A 68-year-old female with a history of dyspnea presenting for a follow-up physical examination and evaluation of respiratory difficulty. The patient's primary concern is shortness of breath, for which she uses an albuterol inhaler. She reports difficulty with coordination and balance, contributing to potential falls. The patient's overall condition appears stable, with no acute respiratory distress noted during the physical examination. Current medications are managing her respiration adequately, but there seems to be an issue with the prescription supply via mail order service, necessitating a refill of albuterol sulfate. Additionally, a balance issue may be attributed to visual disturbances and needs further investigation. 1. Medication Refill Albuterol Sulfate A new prescription for albuterol sulfate was issued to address the patient's previous difficulties with obtaining inhalers through her mail-order pharmacy. Monitor for compliance and ensure prescription is adequately filled prior to exhaustion of current stock. 2. Unsteadiness on feet R26.81 The patient experiences unsteadiness, likely related to visual discrepancies noted in the visit. Advise considering visual assessment and recommending appropriate modifications in daily activities to minimize fall risk. 3. Dyspnea The patient's respiratory status is stable, with no wheezing auscultated during examination. Continue current medication regimen with albuterol sulfate as a rescue inhaler. A prescription refill has been sent to [facility] mail order. Monitor symptoms and advise the patient to call if there's any exacerbation. Diagnostic results - Labs: Pending scheduled non-fasting lab tests based on previous November order for routine evaluation. Problem List - Dyspnea - Medication Refill: Albuterol Sulfate - Unsteadiness Health Maintenance - Patient confirmed the completion of mammogram screening in December 2023 and colonoscopy earlier in the year. - Flu and COVID vaccines have been administered. - Discussed tetanus vaccine status, confirming it was received in 2018 and is up-to-date. - colonoscopy September of this year by Dr. Price, next 1 will be in 5-7 years - no longer having Pap smears Medication list reviewed Patient Instructions - Continue using the daily maintenance inhaler as prescribed. - Take the prescribed albuterol sulfate only when needed for shortness of breath. - Schedule and complete the non-fasting lab tests as ordered. - Remain vigilant about balance issues, and adopt fall prevention strategies at home. - Monitor respiratory symptoms and seek care if breathing becomes more difficult. - Schedule a follow-up appointment as advised and return in September for review. Orders: Orders Complete Blood Count Auto Diff Today E03.8 - Other specified hypothyroidism, E55.9 - Vitamin D deficiency, unspecified, E78.9 - Disorder of lipoprotein metabolism, unspecified, G62.89 - Other specified polyneuropathies, H53.8 - Other visual disturbances, I10 - Essential (primary) hypertension, R73.01 - Impaired fasting glucose, Z00.01 - Encounter for general adult medical examination with abnormal findings Comprehensive Met. Panel Today E03.8 - Other specified hypothyroidism, E55.9 - Vitamin D deficiency, unspecified, E78.9 - Disorder of lipoprotein metabolism, unspecified, G62.89 - Other specified polyneuropathies, H53.8 - Other visual disturbances, I10 - Essential (primary) hypertension, R73.01 - Impaired fasting glucose, Z00.01 - Encounter for general adult medical examination with abnormal findings TSH reflex Free T4 Today E03.8 - Other specified hypothyroidism, E55.9 - Vitamin D deficiency, unspecified, E78.9 - Disorder of lipoprotein metabolism, unspecified, G62.89 - Other specified polyneuropathies, H53.8 - Other visual disturbances, I10 - Essential (primary) hypertension, R73.01 - Impaired fasting glucose, Z00.01 - Encounter for general adult medical examination with abnormal findings Vitamin D 25-OH (D2 and D3) Today E03.8 - Other specified hypothyroidism, E55.9 - Vitamin D deficiency, unspecified, E78.9 - Disorder of lipoprotein metabolism, unspecified, G62.89 - Other specified polyneuropathies, H53.8 - Other visual disturbances, I10 - Essential (primary) hypertension, R73.01 - Impaired fasting glucose, Z00.01 - Encounter for general adult medical examination with abnormal findings LDL Cholesterol Direct Today E03.8 - Other specified hypothyroidism, E55.9 - Vitamin D deficiency, unspecified, E78.9 - Disorder of lipoprotein metabolism, unspecified, G62.89 - Other specified polyneuropathies, H53.8 - Other visual disturbances, I10 - Essential (primary) hypertension, R73.01 - Impaired fasting glucose, Z00.01 - Encounter for general adult medical examination with abnormal findings Vitamin B12 Today E03.8 - Other specified hypothyroidism, E55.9 - Vitamin D deficiency, unspecified, E78.9 - Disorder of lipoprotein metabolism, unspecifi ed, G62.89 - Other specified polyneuropathies, H53.8 - Other visual disturbances, I10 - Essential (primary) hypertension, R73.01 - Impaired fasting glucose, Z00.01 - Encounter for general adult medical examination with abnormal findings Medications: Refilled albuterol sulfate 90 mcg/actuation 2 puffs PO Q4-6H PRN 34 grams 4RF for wheezing
== END 2024-07-14 11:14 | disposition home or self-care (01) ==
PROVIDERS: PCP Internal Medicine; Visit Provider Internal Medicine
DX: Z00.00 Encounter for general adult medical examination without abnormal findings (principal); G62.89 Other specified polyneuropathies; E78.9 Disorder of lipoprotein metabolism, unspecified; H53.8 Other visual disturbances; E55.9 Vitamin D deficiency, unspecified; I10 Essential (primary) hypertension; R73.01 Impaired fasting glucose; E03.8 Other specified hypothyroidism

== ENCOUNTER 2024-08-24 10:55 | Outpatient (AMB) | payer MEDICARE, SELFPAY ==
--- NOTE | 2024-08-24 11:05 | MHC.OFFVIS ---
Vital Signs 08/24/24 11:07 Height 5 ft 8 in Weight 143 lb 4.807 oz BMI 21.8 BP 120/60 Blood Pressure Location Lt brachial Position Sitting Pulse 67 Pulse Source Pulse Oximeter Pulse Oximetry (%) 92 Oxygen Delivery Method Room Air Intake Visit Reasons: Cough Intake Note: pt is here for follow up, she still has a cough, she lost her voice about 2 weeks ago, has short of breath with exertion. Emergency Room Rn Required: No Allergies ENVIROMENTAL Allergy (Unknown, Uncoded 08/24/24 11:31) WHEEZING,COUGH Medication List - Last Reconciled 08/24/24 by Richardson Foley MD albuterol sulfate 90 mcg/actuation 2 puffs PO Q4-6H PRN aspirin (Adult Low Dose Aspirin) 81 mg PO .every other day 90 days atorvastatin 40 mg PO DAILY 90 days budesonide-formoterol 160-4.5 mcg/actuation (Symbicort) 2 puffs inhalation BID 90 days fluticasone propionate 50 mcg/actuation (Flonase Allergy Relief) 1 spray intranasal BID gabapentin 300 mg PO TID 90 days levothyroxine 25 mcg PO DAILY lisinopril 5 mg PO DAILY 90 days ftlzalvd-jgy-psjnu acid-lutein 400-250 mcg (Centrum Silver) 2 tabs PO DAILY venlafaxine ER 75 mg PO DAILY 90 days Do you need a note to return to daycare/school/sports/work: No HPI HPI Cough: Details: THIS 68 YEARS OLD FEMALE IS HERE FOR FOLLOW-UP FOR HER COPD. COPD HAS BEEN RELATIVELY STABLE, AND SHE HAS BEEN USING SYMBICORT 160-4.52 PUFFS B.I.D., WITH ALBUTEROL ONLY P.R.N.. SHE DENIES ANY RECENT RESPIRATORY INFECTION. SHE HAS DEVELOPED HOARSENESS FOR THE LAST 2 WEEKS, AND CAN HARDLY TALK. THIS PATIENT HAD LARYNGEAL CARCINOMA TREATED ABOUT 10 YEARS AGO WITH A COURSE OF RADIATION THERAPY AND AFTER THAT SHE HAS BEEN RELATIVELY STABLE. SHE HAS PAST HISTORY OF SMOKING BUT QUIT IN 2017. SHE HAS HAD CT SCAN OF THE CHEST WHICH HAS SHOWN MULTIPLE PULMONARY NODULES BUT ONLY 3 MM OR SMALLER. DID NOT HAVE CT SCAN IN THE LAST 2 YEARS, RECENTLY SHE HAS BEEN ABLE TO EAT OKAY, . NO DIFFICULTY IN SWALLOWING ADD WEIGHT IS STABLE. 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) Ex-smoker for more than 1 year Stress incontinence Depression, major, recurrent Lipid disorder Cerebellar atrophy Peripheral neuropathy COPD (chronic obstructive pulmonary disease) Asthma, moderate Alcoholism Allergic rhinitis Surgical History History of esophagogastroduodenoscopy (EGD) Hx of eye surgery History of tooth extraction History of colonoscopy (~06/27/19) History of total right hip arthroplasty Family History Father Diabetes mellitus Mother CAD (coronary artery disease) PNA (pneumonia) Former smoker Brother CAD (coronary artery disease) Myocardial infarction Brother No problems noted. Brother No problems noted. Sister No problems noted. Son No problems noted. Daughter No problems noted. Social History Housing: Apartment Alcohol intake: former Year quit: 2017 Patient Tobacco Use Status: Former Tobacco user Tobacco use type: Cigarette Years Smoked: 45 (onset 16yo, quit ~2017) e-Cigarette/Vaping Use: Never Used Substance Use Type: Marijuana service: No Current occupational status: disabled Cognitive needs: No Hearing needs: No Vision needs: Yes Review of Systems Const All systems reviewed & are unremarkable except as noted in HPI and below ENT Reports nasal congestion (OFF AND ON ) Card Denies chest pain, Denies leg edema and Reports dyspnea on exertion (MILD ) Resp Reports cough (OCCASIONAL ) and Reports dyspnea on exertion (MILD ) GI Reports no additional complaints Musc Reports no additional complaints Neuro Reports no additional complaints Psych Reports no additional complaints Endo Reports no additional complaints Physical Exam Vital Signs: Last Vital Signs Pulse 67 08/24/24 11:07 BP 120/60 08/24/24 11:07 Pulse Ox 92 08/24/24 11:07 Oxygen Delivery Method Room Air 08/24/24 11:07 BMI result Body Mass Index 21.8 Const General: healthy appearing, comfortable, no acute distress, alert and awake Orientation/consciousness: patient oriented x3 HEENT Head: Yes normal to inspection General nose exam: No nasal polyps present and No nasal discharge present Face and sinus: Yes sinuses nontender Mouth: oropharynx normal Throat: Yes posterior oropharynx normal Eyes General: appearance normal, both eyes and all related structures Neck Neck: Yes normal visual inspection, Yes no lymphadenopathy, Yes trachea midline and Yes no JVD Thyroid: Thyroid normal Chest Chest palpation & inspection: normal inspection of the chest, normal palpation of entire chest wall and no tenderness Resp Other: Percussion note is resonant. Breath sounds are distant with prolonged expiratory phase. No wheezes rhonchi or crepitations are heard. Effort & Inspection: prolonged expiratory phase Auscultation: no crackles, no wheezes and diminished lung sounds Cardio Palpation: normal PMI Rate: regular rate Rhythm: regular rhythm Heart sounds: no gallops and no murmurs Peripheral pulses: Peripheral pulses 2+ throughout GI Palpation (GI): Soft to palpation, nontender, No hepatosplenomegaly present and no masses Auscultation: normal bowel sounds Back/Spine/Pelvis Thoracic/Lumbar Spine: thoracic and lumbar spine normal to inspection Skin General skin exam: no rashes or lesions noted Neuro General: patient oriented x3 and no focal motor deficits Cranial nerves: Yes CN's II-XII intact bilaterally Extrem General: Yes normal to inspection, Yes no clubbing, cyanosis or edema, Yes no calf tenderness and No venous stasis dermatitis Psych Appearance: grossly normal and well kempt Speech and movement: Normal speech and movement present Assessment & Plan Assessment & Plan (1) Ex-smoker for more than 1 year: Comment: She has history of smoking about 30-35 pack years. Luckily quit IN [address] scan IN 2020 ,Benign , 3 mm nodule HAS HAD NO FOLLOW-UP CT SCAN SINCE THEN. Code(s): Z87.891 - Personal history of nicotine dependence Category: Social Hx Plan: Commended for not. Going back to smoking Recommended that she should have annual CT scan for a few more years. (2) COPD (chronic obstructive pulmonary disease): Comment: Patient has moderately severe obstructive airway disorder. Has been quite stable with her current regimen, but does get short of breath on minimal exertion. [place] : Symbicort 160-4.52 puffs b.i.d. regularly. ProAir HFA 2 puffs Q 6 hours p.r.n.. Code(s): J44.9 - Chronic obstructive pulmonary disease, unspecified Category: Medical Qualifiers: COPD type: emphysema Emphysema type: panlobular Qualified Code(s): J43.1 - Panlobular emphysema Plan: She is advised to continue the same regimen. However due to onset of hoarseness of the wu, I have advised her to hold off using Symbicort for about 2 weeks. Just use albuterol HFA 2 puffs Q 6 hours p.r.n.. (3) Allergic rhinitis: Comment: It is mild with seasonal exacerbations. Code(s): J30.9 - Allergic rhinitis, unspecified Category: Medical Qualifiers: Allergic rhinitis seasonality: non-seasonal Allergic rhinitis trigger: other Qualified Code(s): J30.89 - Other allergic rhinitis Plan: Use Flonase and Cetrizine 10 mg once a day only p.r.n.. (4) Hoarseness of voice: Comment: PATIENT HAS DEVELOPED HOARSENESS AND HAS HARDLY NO RICCI FOR THE LAST 2 WEEKS. IT HAS COME ON RELATIVELY QUICKLY WITHOUT ANY PRIOR INFECTION. IT IS CONCERNING BECAUSE SHE HAS PAST HISTORY OF LARYNGEAL CANCER TREATED WITH RADIATION THERAPY ABOUT 10 YEARS AGO. Code(s): R49.0 - Dysphonia Category: Medical Plan: FOR POSSIBILITY OF DYSPHONIA DUE TO STEROIDS INHALATIONS, I HAVE ADVISED HER TO HOLD USING SYMBICORT FOR 2 WEEKS. DO FREQUENT GARGLES WITH SALT AND WATER. MAY ALSO DO STEAM INHALATIONS 3 TIMES A DAY. EMPIRICALLY I HAVE STARTED HER ON [place]STATIN SWISHES B.I.D. FOR ABOUT 10 DAYS. WILL ALSO MAKE ARRANGEMENT FOR HER TO SEE HER ENT SPECIALIST ,( DR. GOLDSTEIN 0 Orders: Referrals Ear/Nose/Throat Referral R49.0 - Dysphonia Medications: New nystatin swish and swallow 5 mL PO TID 225 mL 1RF LARYNGITIS/ CANDIDIASIS 15 days Coding Level of Care Code Est Pt Level 4 (28526) Diagnoses Ex-smoker for more than 1 year Z87.891 Panlobular emphysema J43.1 COPD type: emphysema Emphysema type: panlobular Non-seasonal allergic rhinitis due to other allergic trigger J30.89 Allergic rhinitis seasonality: non-seasonal Allergic rhinitis trigger: other Hoarseness of voice R49.0
[2024-08-24 11:07] VITALS: BP 120/60; PULSE 67; O2SAT 92; BMI 21.8
== END 2024-08-24 11:32 | disposition home or self-care (01) ==
PROVIDERS: PCP Internal Medicine; Visit Provider Internal Medicine
DX: Z87.891 Personal history of nicotine dependence (principal); J43.1 Panlobular emphysema; J30.89 Other allergic rhinitis; R49.0 Dysphonia
CPT/HCPCS: 99214

== ENCOUNTER → 2024-08-24 10:55 | Outpatient (BNVA) | payer MEDICARE, SELFPAY | PROVIDERS: PCP Internal Medicine; Visit Provider Internal Medicine | DX: J43.1 Panlobular emphysema (principal); J30.89 Other allergic rhinitis; R49.0 Dysphonia; Z87.891 Personal history of nicotine dependence | CPT/HCPCS: 99212 ==

== ENCOUNTER → 2024-09-06 10:22 | Outpatient (BNVA) | payer MEDICARE, SELFPAY | PROVIDERS: PCP Internal Medicine; Visit Provider Internal Medicine | DX: R49.0 Dysphonia (principal); J43.1 Panlobular emphysema | CPT/HCPCS: 99212 ==

== ENCOUNTER 2024-10-09 08:42 | Outpatient (REF) | payer MEDICARE, SELFPAY ==
--- NOTE | ~2024-10-09 | CT_ITS ---
CLINICAL HISTORY: Z87.891 - Personal history of nicotine dependence CT lung cancer screening (LDCT) Comparison: CT/REG/OT - CT LUNG SCREENING - 12/23/20 09:52 EDT Technique: Axial CT images of the chest using low-dose technique. Referring provider counseled the patient on shared decision-making for LDCT screening. Additional counseling was provided on smoking cessation. Effective radiation dose total: DLP 35.8 mGycm, CTDIvol 0.9 mGy. Findings: Lung: No change in bilateral pulmonary nodules. For example, no change in the 5 mm subpleural nodule within the right lung base posteriorly ( image 126). No new pulmonary nodules. Coronary artery calcifications: Moderate Limited upper abdomen: Unremarkable Other: None Impression: 1. Coronary artery disease. 2. LungRADS 2 - Benign Appearance: Continue annual screening with low dose Chest CT in 12 months. ##L2# Category 1: Normal; continue annual screening Category 2: Benign appearance or behavior, continue annual screening Category 3: Probably benign, [address] recommended Category 4A: Suspicious, [address] recommended; may consider PET/CT Category 4B: Suspicious, Additional diagnostics and/or tissue sampling recommended Category 4X: Suspicious, Additional diagnostics and/or tissue sampling recommended Category 0: Recalls (incomplete screen due to Incomplete coverage, Noise, Respiratory motion, Expiration, Obscured by acute abnormality) This document has been electronically signed by: Haven Lemus MD on 10/10/2024 14:12:54
--- OUTSIDE RECORDS SUMMARY | 2024-10-09 09:04 | XMS_ITS ---
Author Organization [facility] Address [address] [place] [address] Care Team Providers Care Banquet Server On Call Name Role Phone Simeon DAWKINS, Teressa Primary Care Provider UnavailAlexis Garrison Unavailable [phone] Encounters Encounter Location Date [facility] [address] [address] 10/02/2024 Alexis Ureña Plan Of Treatment No Information Progress Notes * Krystin GOTTI EDOB: [birth year] (69 yo F)Acc No.[id number]:10/02/2024 Progress Note Patient:Yann ASHFORDen Loi Provider:?Alexis Ureña DPM :1955???Age:69 Y???Sex:Female D ate:10/02/2024 Address:[address] [place] [address] , [id number] Pcp:Teressa Hendrix MD Subjective: * Chief Complaints: * ??? * Medical History:? Objective: * Vitals:? Assessment: Plan: * Treatment: * Images: * The named appointment provid er may or may not be the originator of this progress note, and it is not deemed complete until electronically signed by the appointment provider. Sign off status: Pending * Provider:?Alexis Ureña DPM Date:?2024 Generated for Lambert Angling/Tenaitting on:?10/09/2024 09:04 AM EDT
--- OUTSIDE RECORDS SUMMARY | 2024-10-09 09:04 | XMS_ITS | Patient Health Record ---
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 Name Role Phone Simeon DAWKINS, [facility] Primary Care Provider Alexis Weber Unavailable [phone] Allergies Allergen (clinical drug ingredient) Drug/Non Drug Allergy documented on EMR Reaction Allergy Type Onset Date Status Pollen Pollen Unknown Allergy Active Reason For Referral No Information Medications Medication SIG (Take, Route, Frequency, Duration) Notes Start Date End Date Status Lisinopril 5 MG 1 tablet Orally Once a day Active Gabapentin 300 MG 1 capsule Orally Onc e a day Active Fish Oil 1200 MG 1 capsule Orally Thr ee times a day Active Atorvastatin Calcium 40 MG 1 tablet Oral ly Once a day Active Vitamin D3 25 MCG (1000 UT) 1 capsule Or ally Once a day Active Vitamin C 500 MG as directed Orally Active Symbicort 160-4.5 MCG/ACT 1 puff as need ed Inhalation every 4 hrs Active Levothyroxine Sodium 25 MCG 1 tablet in the morning on an empty stomach Orally Once a day Active Fluticasone Propionate (Inhal) Active Centrum Active Albuterol Sulfate Ac tive Aspirin 81 MG 1 tablet Orally Once a day Active Venlafaxine HCl 75 MG 1 tablet with food Orally Once a day Active Social History Tobacco Use: Social History Observation Description Date Details (start date - stop date) Former Smoker NA - NA Tobacco Use/Smoking Question Answer Notes Are you a: former smoker Additional Findings: Tobacco Non-User Ex-heavy c igarette smoker (20-30/day) Alcohol Screen Question Answer Notes Did you have a drink containing alcohol in the p ast year? No Points 0 Interpretation Negative Tobacco use other than smoking: Question Answer Notes Are you an other tobacco user? No Problems Problem Type SNOMED Code ICD Code Onset Dates Problem Status W/U Status Risk Notes Problem [id number] Atherosclerosis of [place] artery of both lower extremities, with unspecified presence of clinical manifestation (I70.203) Active confirmed Q7(A), Q8(2B), Q9(1B,2 C) Problem 36181077 Essential hypertension (I10) Active confirmed Vital Signs Blood pressure diastolic 80 mm Hg 07/10/2024 Height 5ft8in in 07/10/2024 Blood pressure systolic 130 mm Hg 07/10/2024 Weight 145 lbs 07/10/2024 BMI 22.04 kg/m2 07/10/2024 Procedures Procedure Date Ordered Date Performed Result Body Sit e 51336-XQGVJQY NAIL, 1-5 04/06/2024 N/A 84774-QGYK SKIN LESIONS, OVER 4 04/06/2024 N/A F7763-YUUEFGFB DYSTROPHIC NAILS ANY # 04/06/2024 N/A 42757-FQYPXEL NAIL, 1-5 07/10/2024 N/A 08834-MBTE SKIN LESIONS, OVER 4 07/10/2024 N/A Q9172-XSFZQWVM DYSTROPHIC NAILS ANY # 07/10/2024 N/A Encounters Encounter Location Date Provider Diagnosis [facility] [address] 04/06/2024 Alexis Ureña Atherosclerosis of [place] artery of both lower extremities, with unspecified presence of clinical manifestation I70.203 ; Tinea unguium B35.1 ; Pain in right toe(s) M79.674 ; Pain in left toe(s) M79.675 ; Pain in right foot M79.671 ; Pain in right ankle and joints of right foot M25.571 ; Bursitis of right foot M77.51 and Tailor's bunion of right foot M21.621 [facility] [address] [address] 07/10/2024 Alexis Ureña Atherosclerosis of [place] artery of both lower extremities, with unspecified presence of clinical manifestation I70.203 ; Tinea unguium B35.1 ; Pain in right toe(s) M79.674 and Pain in left toe(s) M79.675 [facility] [place] [address] [address] 10/02/2024 Alexis Ureña Assessments Encounter Date Diagnosis (ICD Code) Assessment Notes Treatment Notes Treatment Clinical Notes Section Notes 04/06/2024 Tinea unguium (ICD-10 - B35.1) 04/06/2024 Atherosclerosis of [place] artery of both lower extremities, with unspecified presence of clinical manifestation (ICD-10 - I70.203) 07/10/2024 Tinea unguium (ICD-10 - B35.1) 07/10/2024 Atherosclerosis of [place] artery of both lower extremities, with unspecified presence of clinical manifestation (ICD-10 - I70.203) Q7(A), Q8(2B), Q9(1B,2C) 07/10/2024 Pain in right toe(s) (ICD-10 - M79.674) 04/06/2024 Pain in right toe(s) (ICD-10 - M79.674) 04/06/2024 Pain in left toe(s) (ICD-10 - M79.675) 07/10/2024 Pain in left toe(s) (ICD-10 - M79.675) 04/06/2024 Pain in right foot (ICD-10 - M79.671) 04/06/2024 Pain in right ankle and joints of right foot (ICD-10 - M25.571) 04/06/2024 Bursitis of right foot (ICD-10 - M77.51) 04/06/2024 Tailor's bunion of right foot (ICD-10 - M21.621) Plan Of Treatment Pending Test Test Name Order Date 41296-KDEPTER NAIL, 1-5 04/06/2024 61826-FGJTSOL NAIL, 1-5 07/10/2024 16152-WDXP SKIN LESIONS, OVER 4 04/06/20 24 73985-LNNH SKIN LESIONS, OVER 4 07/10/20 24 E3905-SUCWXZUP DYSTROPHIC NAILS ANY # T7154-AGBJPZZY DYSTROPHIC NAILS ANY # Insurance Providers Payer Name Payer Address Payer Phone Subscriber Number Group Number Insured Name Patient Relationship to Insured Coverage Start Date Coverage End Date [facility] [address] [address] [place] [phone] [id number] Krystin Gotti Self - patient is the insured Medical (General) History Medical History History ICD Code Anxiety asthma Back,Hip,and Knee pain Broken bones CAD (Cholesterol) Cancer Cataracts Depression Macular degeneration nerve disorder Numbness Osteoporosis thyroid Joint implants/screws Hypertension Surgical History Surgery Date(Month/Year) hip replacement
--- OUTSIDE RECORDS SUMMARY | 2024-10-09 09:04 | XMS_ITS ---
Author Organization [facility] Address [address] [place] [address] Care Team Providers Care Department Editor Name Role Phone Simeon DAWKINS, Asma Primary Care Provider Alexis Weber Unavailable [phone] REASON FOR VISIT NS 10/02/24 appt Encounters Encounter Location Date [facility] [address] [facility] [address] [place] [address] 10/02/2024 Alexis Ureña Plan Of Treatment No Information Progress Notes * Krystin GOTTI EDOB: [birth year] (69 yo F)Acc No.[id number]:10/02/2024 Patient:?Krystin GOTTI :1955???Age:69 Y???Sex:Female Address:[address] [place] [address] , [place], [address] * * Date:?
--- OUTSIDE RECORDS SUMMARY | 2024-10-09 09:04 | XMS_ITS ---
[facility] Address [address] [facility] [place] [address] Care Team Providers Care Sports Marketing Specialist Name Role Phone Simeon DAWKINS, Asma Primary Care Provider Alexis Weber Unavailable [phone] Allergies Allergen (clinical drug ingredient) Drug/Non Drug Allergy documented on EMR Reaction Allergy Type Onset Date Status Pollen Pollen Unknown Allergy Active REASON FOR VISIT At Risk Footcare, Painful Nail(s) aggravated by shoes and causing difficulty standing/walking. Medications Medication SIG (Take, Route, Frequency, Duration) Notes Start Date End Date Status Vitamin D3 25 MCG (1000 UT) 1 capsule Or ally Once a day Active Vitamin C 500 MG as directed Orally Active Symbicort 160-4.5 MCG/ACT 1 puff as need ed Inhalation every 4 hrs Active Levothyroxine Sodium 25 MCG 1 tablet in the morning on an empty stomach Orally Once a day Active Venlafaxine HCl 75 MG 1 tablet with food Orally Once a day Active Lisinopril 5 MG 1 tablet Orally Once a day Active Gabapentin 300 MG 1 capsule Orally Onc e a day Active Fish Oil 1200 MG 1 capsule Orally Thr ee times a day Active Fluticasone Propionate (Inhal) Active Centrum Active Atorvastatin Calcium 40 MG 1 tablet Oral ly Once a day Active Albuterol Sulfate Ac tive Aspirin 81 MG 1 tablet Orally Once a day Active Social History Tobacco Use: Social History Observation Description Date Details (start date - stop date) Former Smoker NA - NA Tobacco Use/Smoking Question Answer Notes Are you a: former smoker Additional Findings: Tobacco Non-User Ex-heavy c igarette smoker (20-30/day) Tobacco use other than smoking: Question Answer Notes Are you an other tobacco user? No Problems Problem Type SNOMED Code ICD Code Onset Dates Problem Status W/U Status Risk Notes Problem 62566158 Essential hypertension (I10) Active confirmed Vital Signs Height 5ft8in in 07/10/2024 Weight 145 lbs 07/10/2024 BMI 22.04 kg/m2 07/10/2024 Blood pressure systolic 130 mm Hg 07/10/20 24 Blood pressure diastolic 80 mm Hg 024 Procedures Procedure Date Ordered Date Performed Result Body Sit e 38991-SXNQEDA NAIL, 1-5 07/10/2024 N/A 61155-HKSA SKIN LESIONS, OVER 4 07/10/2024 N/A U2368-DRSCDRRC DYSTROPHIC NAILS ANY # 07/10/2024 N/A Encounters Encounter Location Date Provider Diagnosis [facility] [address] [address] 07/10/2024 Alexis Ureña Atherosclerosis of iqugmiut artery of both lower extremities, with unspecified presence of clinical manifestation I70.203 ; Tinea unguium B35.1 ; Pain in right toe(s) M79.674 and Pain in left toe(s) M79.675 Assessments Encounter Date Diagnosis (ICD Code) Assessment Notes Treatment Notes Treatment Clinical Notes Section Notes 07/10/2024 Atherosclerosis of iqugmiut artery of both lower extremities, with unspecified presence of clinical manifestation (ICD-10 - I70.203) Q7(A), Q8(2B), Q9(1B,2C) 07/10/2024 Tinea unguium (ICD-10 - B35.1) 07/10/2024 Pain in right toe(s) (ICD-10 - M79.674) 07/10/2024 Pain in left toe(s) (ICD-10 - M79.675) Plan Of Treatment Pending Test Test Name Order Date 16200-GETQFEO NAIL, 1-5 07/10/2024 76402-MDVT SKIN LESIONS, OVER 4 07/10/20 24 F1257-NOMNWAGR DYSTROPHIC NAILS ANY # Next Appt Details Follow Up: prn, Reason: Procedure Notes * Category Sub-Category Detail Notes Keratoma Treatment Parring or Cutting o f Benign Hyperkeratotic Lesion(s) (-57) More than 4 Lesions - Due to the at risk nature of the patients medical condition as documented in the exam findings, performance of this keratoderma treatment is medically necessary as its management by an unskilled/untrained nonprofessional would put this patients foot and overall health at risk. Therefore, the benign hyperkeratotic lesions, ( 9) in total, locations as stated and described in the exam, were pared, and/or cut utilizing a sterile 15 blade, tissue nippers, and/or power dremel instrumentation - 19356, Q8 Debride Nails 1-5 Procedure: Due to the cli nical pathology outlined in the exam findings, performance of this nail treatment is medically necessary as its management by an unskilled/untrained nonprofessional would put this patients foot and overall health at risk. Therefore, debridement to affected nail(s), as described in exam, was performed extensively to reduce/remove overall nail length, girth, thickness, subungual debris, and necrotic tissue, by manual and/or electrical means through the use of a nail nipper and/or dremel stylegrinder, to a more viable healthy nail plate or bed tissue 5 nails or fewer in number. Silver nitrate was used for any petechial bleeding as necessary. Definitive antifungal treatment options, both pharmaceutical and surgical, have been reviewed and discussed with the patient. The patient solely prefers the use of intermittent/as needed professional debridement services for their nail condition and understands that additional periodic treatments may be required as necessary to maintain effective symptomatic relief - 69166 Nail Reduction Nail Reduction (-27) Trimming o f all dystrophic nails - Due to the at risk nature of the patients medical condition as documented in the exam findings, performance of this nail treatment is medically necessary as its management by an unskilled/untrained nonprofessional would put this patients foot and overall health at risk. Therefore, the dystrophic nails, in locations as stated and described in the exam, were debrided to reduce/remove overall nail length and girth, by manual and electrical means with use of a nail nipper and/or dremel, to more viable healthy nail plate or bed tissue - G0127, Q8 Progress Notes * Krystin GOTTI EDOB: [birth year] (68 yo F)Acc No.[id number]:07/10/2024 Progress Note Patient:Krystin ASHFORD Provider:?Alexis Ureña DPM :1955???Age:68 Y???Sex:Female D ate:07/10/2024 Address:[address] [place] [address] [address], [facility] Pcp:Teressa Hendrix MD Subjective: * Chief Complaints: * ???At Risk FootcarePainful N ail(s) aggravated by shoes and causing difficulty standing/walking. * HPI: ???At Risk footcare:?Pt States Last PCP Visit:?Date?03/14/2024 * ROS:?General/Constitutional:?Nausea?denies.?Vomiting?denies.?Hunger Thirst?denies.?Loss appetite?denies.?Chills?denies.?Fatigue?denies.?Fever?denies.?Night Sweats?denies.?Unexplained weight loss?denies.?Unexplained weight gain?denies.?HEENTM:?Dentures?denies.?Dizziness?denies.?Glasses/contacts?admits.?Retinopathy?de nies.?Blurred/double vision?denies.?TMJ?denies.?Discharge/drainage?denies.?Implants?denies.?Sore throat?denies.?Dental implants?denies.?Hard of hearing ?denies.?Difficulty chewing/swallowing/speaking?denies.?Nose bleeds?denies.?Sore mouth?denies.?Respiratory:?On Oxygen?denies.?Pneumonia/pleurisy?denies.?Bronchitis?denies.?Emphysema?denies.?C oughing?denies.?Cough blood?denies.?Shortness of breath?denies.?Wheezing?denies.?Cardiovascular:?Pacemaker?denies.?MVP?denies.?WPW?denies.?CHF?denies.?Heart attack?denies.?Septal defect?denies.?Rapid beat?denies.?Chest pain ?denies.?Atrial Fib.?denies.?Murmur/Palpitations?denies.?Gastrointestinal:?Hemorrhoids?denies.?Stomach/Abdominal pain?denies.?Dark blood stool?denies.?Irritable bowel ?denies.?Constipation?denies.?Diarrhea?denies.?Hematology:?Swelling?denies.?Clots?denies.?Varicose Veins?admits.?Bruising?admits, on aspirin.?Bleeding problem?admits, on anticoagulants.?Genitourinary:?Blood urine?denies.?Frequent/Painfu/urination/bladder control?denies.?Kidney stones?denies.?Infection (UTI)?denies.?Nephropathy?denies.?sex trans dis (STD)?denies.?Prostate?denies.?Musculoskeletal:?Hammertoes?denies.?Bunions?denies.?Back Pain?denies.?Muscle Cramps/ Resting?denies.?Muscle cramps / walking?denies.?Generalized aches and pains?denies.?Weakness?denies.?Integ.:?Brand?denies.?Scars?denies.?Corns/calluses?admits.?Ingrown nails?admits.?Painful nails?admits.?Open Sores?denies.?Rashes?denies.?Neurologic:?Difficulty sleeping?denies.?Brain disorder?denies.?Numbness?denies.?Balance trouble?denies.?Confusion?denies.?Fainting/blackouts?denies.?Tingling?admits, bilateral lower extremities, in the toes, that is moderate.?Tremors?denies.? * Medical History:? * Surgical History:?hip replac ement * Hospitalization/Major Diagno stic Procedure:?Denies Past Hospitalization * Family History:?Mother: dece ased, heart attack, diagnosed with Family history of arthritis.?Father: , diagnosed with Unspecified essential hypertension.?Siblings: unknown, diagnosed with Diabetic - NIDDM.?Paternal Grand Mother: diagnosed with Diabetic - NIDDM.?Maternal Grand Mother: diagnosed with Family history of arthritis.? * Social History:?Tobacco Use:?Tobacco Use/Smoking?Are you a:?former smoker ?Additional Findings: Tobacco Non-User?Ex-heavy cigarette smoker (20- 30/day) ?Tobacco use other than smoking?Are you an other tobacco user??No * Medications:?TakingAtorvasta tin Calcium 40 MG Tablet 1 tablet Orally Once a day Aspirin 81 MG Tablet Chewable 1 tablet Orally Once a day Albuterol Sulfate Centrum Fluticasone Propionate (Inhal) Fish Oil 1200 MG Capsule 1 capsule Orally Three times a day Gabapentin 300 MG Capsule 1 capsule Orally Once a day Lisinopril 5 MG Tablet 1 tablet Orally Once a day Levothyroxine Sodium 25 MCG Tablet 1 tablet in the morning on an empty stomach Orally Once a day Symbicort 160-4.5 MCG/ACT Aerosol 1 puff as needed Inhalation every 4 hrs Vitamin C 500 MG Capsule as directed Orally Vitamin D3 25 MCG (1000 UT) Capsule 1 capsule Orally Once a day Venlafaxine HCl 75 MG Tablet 1 tablet with food Orally Once a day Medication List reviewed and reconciled with the patientTaking Atorvastatin Calcium 40 MG Tablet 1 tablet Orally Once a day Taking Aspirin 81 MG Tablet Chewable 1 tablet Orally Once a day Taking Albuterol Sulfate Taking Centrum Taking Fluticasone Propionate (Inhal) Taking Fish Oil 1200 MG Capsule 1 capsule Orally Three times a day Taking Gabapentin 300 MG Capsule 1 capsule Orally Once a day Taking Lisinopril 5 MG Tablet 1 tablet Orally Once a day Taking Levothyroxine Sodium 25 MCG Tablet 1 tablet in the morning on an empty stomach Orally Once a day Taking Symbicort 160-4.5 MCG/ACT Aerosol 1 puff as needed Inhalation every 4 hrs Taking Vitamin C 500 MG Capsule as directed Orally Taking Vitamin D3 25 MCG (1000 UT) Capsule 1 capsule Orally Once a day Taking Venlafaxine HCl 75 MG Tablet 1 tablet with food Orally Once a day Medication List reviewed and reconciled with the patient * Allergies:?Pollenyes[Allergi es Verified] Objective: * Vitals:?Ht: 5ft8in, Wt:145, BMI:22.04, Shoe size: 11, BP:130/80mm Hg, Ht-cm: 172.72 cm, Wt-k.77 kg. * Examination: ???Vascular: ?DP PULSES(B):?0/4 , LEFT , 1/4 , RIGHT.?PT PULSES(B):?1/4, B/L.?CAPILLARY FILL TIME:? delayed, all digits, B/L.?TROPHIC CONDITION-TEXTURE/ELASTICITY/TURGOR/HAIR GROWTH(B):? decreased,?with sparse to absent hair growth, B/L.?TEMPERTURE GRADIENT(C):? decreased, cool to cool, proximal to distal, B/L.?PIGMENTATION:?pale, B/L.?EDEMA(C):?absent, B/L.?CLAUDICATION(C):?denies, B/L.?REST PAIN:?denies, B/L.?Nails: ?NAILS are:?Elongated, overgrown, dystrophic, lytic, greater than 3mm thick, discolored and friable with crumbly malodorous subungual debris, with pain on palpation , TA , T5, all other nails not described with characteristics as possessing mycosis are elongated, overgrown, and dystrophic.?Dermatologic: ?SKIN FINDINGS:?Skin exam reveals Keratotic lesion(s) located at , SUB MTH (s) , 1 , B/L , SUB MTH (s), 2, Left, SUB MTH (s),3, Left, SUB MTH (s), 4, Left, SUB MTH (s) , 5 , B/L , Plantar, Heel(s) , B/L.? Assessment: * Assessment: 1.?Tinea unguium - B35.1???2 .?Atherosclerosis of iqugmiut artery of both lower extremities, with unspecified presence of clinical manifestation - I70.203 (Primary)???Notes :Q7(A), Q8(2B), Q9(1B,2C)???3.?Pain in right toe(s) - M79.674???4.?Pain in left toe(s) - M79.675??? Plan: * Treatment: 2.?Tinea unguium?Procedure: 88871-PZZEONL NAIL, 1-5 * Procedures:?Debride Nails 1-5:?Procedure:?Due to the clinical pathology outlined in the exam findings, performance of this nail treatment is medically necessary as its management by an unskilled/untrained nonprofessional would put this patients foot and overall health at risk. Therefore, debridement to affected nail(s), as described in exam, was performed extensively to reduce/remove overall nail length, girth, thickness, subungual debris, and necrotic tissue, by manual and/or electrical means through the use of a nail nipper and/or dremel stylegrinder, to a more viable healthy nail plate or bed tissue 5 nails or fewer in number. Silver nitrate was used for any petechial bleeding as necessary. Definitive antifungal treatment options, both pharmaceutical and surgical, have been reviewed and discussed with the patient. The patient solely prefers the use of intermittent/as needed professional debridement services for their nail condition and understands that additional periodic treatments may be required as necessary to maintain effective symptomatic relief - 34742.?Keratoma Treatment:?Parring or Cutting of Benign Hyperkeratotic Lesion(s)?(-57) More than 4 Lesions - Due to the at risk nature of the patients medical condition as documented in the exam findings, performance of this keratoderma treatment is medically necessary as its management by an unskilled/untrained nonprofessional would put this patients foot and overall health at risk. Therefore, the benign hyperkeratotic lesions, ( 9) in total, locations as stated and described in the exam, were pared, and/or cut utilizing a sterile 15 blade, tissue nippers, and/or power dremel instrumentation - 17753, Q8.?Nail Reduction:?Nail Reduction?(-27) Trimming of all dystrophic nails - Due to the at risk nature of the patients medical condition as documented in the exam findings, performance of this nail treatment is medically necessary as its management by an unskilled/untrained nonprofessional would put this patients foot and overall health at risk. Therefore, the dystrophic nails, in locations as stated and described in the exam, were debrided to reduce/remove overall nail length and girth, by manual and electrical means with use of a nail nipper and/or dremel, to more viable healthy nail plate or bed tissue - G0127, Q8.? * Procedure Codes:?G0127 JACOB ING DYSTROPHIC NAILS ANY #, Modifiers: XS , [id number] DEBRIDE NAIL, 1-5, Modifiers: XS 86393 TRIM SKIN LESIONS, OVER 4, Modifiers: XS , Q8 * Follow Up:?prn * Images: * Sign off status: Completed true * Provider:?Alexis Ureña DPM Date:?2023 Generated for Lambert ortiz/Shana/Bessie on:?10/09/2024 09:03 AM EDT History and Physical Notes * HPI (History of Present Illness) Category Sub-Category Detail Notes Category Not es At Risk footcare Pt States Last PCP Visit: Date: Examination Category Sub-Category Detail Notes Category Not es Dermatologic SKIN FINDINGS: Skin exam reveal s Keratotic lesion(s) located at , SUB MTH (s) , 1 , B/L , SUB MTH (s), 2, Left, SUB MTH (s),3, Left, SUB MTH (s), 4, Left, SUB MTH (s) , 5 , B/L , Plantar, Heel(s) , B/L Vascular DP PULSES (B): 0/4 , LEFT , 1/4 , RIGHT PT PULSES (B): 1/4, B/L CAPILLARY FILL TIME: delayed, all digits , B/L TEMPERTURE GRADIENT (C): decreased, cool to cool, proximal to distal, B/L TROPHIC CONDITION-TEXTURE/ELASTICITY/TURGOR/HAIR GROWTH (B): decreased, with sparse to absent hair gr owth, B/L EDEMA (C): absent, B/L CLAUDICATION (C): denies, B/L REST PAIN: denies, B/L PIGMENTATION: pale, B/L Nails NAILS are: Elongated, overg rown, dystrophic, lytic, greater than 3mm thick, discolored and friable with crumbly malodorous subungual debris, with pain on palpation , TA , T5, all other nails not described with characteristics as possessing mycosis are elongated, overgrown, and dystrophic
== END 2024-10-09 08:43 | disposition home or self-care (01) ==
LOC: HO.CT 08:42
PROVIDERS: PCP Internal Medicine; Visit Provider Physician Assistant Medical
DX: Z12.2 Encounter for screening for malignant neoplasm of respiratory organs (principal); Z87.891 Personal history of nicotine dependence
CPT/HCPCS: 71271

== ENCOUNTER → 2024-10-09 08:45 | Outpatient (BNV) | payer MEDICARE, SELFPAY | PROVIDERS: PCP Internal Medicine; Visit Provider Radiology Diagnostic Radiology | DX: Z87.891 Personal history of nicotine dependence (principal) | CPT/HCPCS: 71271 ==

== ENCOUNTER 2024-11-01 08:40 | Outpatient (AMB) | payer MEDICARE, SELFPAY ==
[2024-11-01 08:45] VITALS: BP 118/62; PULSE 67; TEMP 36.7; O2SAT 94; BMI 21.8
--- NOTE | 2024-11-01 08:45 | MHC.PC.OV ---
Vital Signs 11/01/24 08:45 Height 5 ft 8 in Weight 143 lb 6 oz BMI 21.8 BP 118/62 Blood Pressure Location Lt brachial Position Sitting Pulse 67 Pulse Source Pulse Oximeter Temp 98.1 F Temp Source Oral Pulse Oximetry (%) 94 Oxygen Delivery Method Room Air Intake Visit Reasons: follow up Allergies ENVIROMENTAL Allergy (Unknown, Uncoded 09/06/24 11:00) WHEEZING,COUGH Medication List - Last Reconciled 11/01/24 by Teressa Hendrix MD albuterol sulfate 90 mcg/actuation 2 puffs PO Q4-6H PRN ascorbic acid (vitamin C) mg PO aspirin (Adult Low Dose Aspirin) 81 mg PO .every other day 90 days atorvastatin 40 mg PO DAILY 90 days budesonide-formoterol 160-4.5 mcg/actuation (Symbicort) 2 puffs inhalation BID 90 days cholecalciferol (vitamin D3) 25 mcg PO DAILY fluticasone propionate 50 mcg/actuation (Flonase Allergy Relief) 1 spray intranasal BID gabapentin 300 mg PO TID 90 days levothyroxine 25 mcg PO DAILY lisinopril 5 mg PO DAILY 90 days mybfsecu-tea-bwxuy acid-lutein 400-250 mcg (Centrum Silver) 2 tabs PO DAILY nystatin 5 mL PO TID PRN omega 5-cve-bal-fish oil 1,200 (144-216) mg (Fish Oil) caps PO venlafaxine ER 75 mg PO DAILY 90 days Tobacco use date assessed: 11/01/24 Fall risk assessment: No Falls in past year Last assessed Fall Risk: 11/01/24 Dental Screening Dental Screen Date: 11/01/24 Did you have a dental visit in the last 12 months?: No Did you have a dental problem in the last 6 months where you did not have access to dental care?: No Was dental information given to patient?: Patient declined HPI follow up HPI Details History The patient is a 69-year-old female presenting with a regular follow-up appointment. - She seeks a referral to a afloat cryptologic manager for a persistent red spot on her nose. She has not undergone annual skin screenings as recommended. - In a recent consultation, Dr. Foley assessed her COPD as severe. While past pulmonary function tests have been conducted, a recent evaluation did not include such a test. - The patient's COPD-related symptoms do not yet necessitate the use of supplemental oxygen, with a pulse oximetry reading of 94% on room air. - Historical lab results indicate slight anemia, with hemoglobin levels usually around 11 - Past lab results identified hyperkalemia, with potassium at 5.2, and elevated vitamin B12 levels, for which supplementation has been halted. - She has a known history of osteopenia, indicative of decreased bone density. - The patient quit smoking and has abstained from alcohol consumption. Medications - Atorvastatin 40 mg for hyperlipidemia - Symbicort for COPD management - Vitamin D supplementation - Flonase for allergic rhinitis - Gabapentin 300 mg three times a day for neuropathy - Levothyroxine 25 mcg for hypothyroidism - Lisinopril 5 mg for hypertension - Venlafaxine 75 mg for depression Problem List - Chronic Obstructive Pulmonary Disease (COPD), severe - Osteopenia - Anemia - Hyperkalemia - Hypervitaminosis B12 - peripheral neuropathy - mild cerebral atrophy - risk for fall - red spots on nose - lipid disorder - hypothyroidism - hypertension - depression and anxiety Diagnostic results - Labs: Hemoglobin 11.5 indicating slight anemia; potassium 5.2 indicating hyperkalemia; vitamin B12 previously high but no longer supplemented; vitamin D and thyroid levels normal. [facility] - Dr. Foley, ict security specialist, managing severe COPD. Patient Instructions - The patient is advised to attend an appointment with a afloat cryptologic manager for skin evaluation. - Continue current medications as prescribed. - Perform breathing exercises: Take deep breaths, hold for two seconds, and repeat 10 times, three times a day. - Attend follow-up appointment with Dr. Foley regarding COPD management. - Cease vitamin B12 supplementation. - Obtain lab work including electrolytes and vitamin B12 levels. Nonfasting tests are acceptable. - continue medications as prescribed Review of Systems General: No fever no chills neurological: No headaches no dizziness ear nose throat: No sore throat no hearing difficulty no ear pain cardiovascular: No syncope, no chest pain, no palpitations gastrointestinal: No nausea vomiting or diarrhea endocrine: No polyuria polydipsia no heat intolerance genitourinary: No dysuria skin: No new complaints Physical Exam general: No acute distress HEENT: No acute findings neck: Supple respiratory system: Able to talk in full sentences, no audible wheeze no stridor cardiovascular: S1-S2 gastrointestinal: No pain extremities: No new findings SENIOR SECURITY ANALYST: Alert awake oriented x3 motor sensory intact skin: Red spot on nose PFSH Medical History Tubular adenoma of colon Osteopenia Hypertension, essential Lipid disorder History of retinal detachment Hoarseness of voice Hyperparathyroidism Goiter Vitamin D deficiency Osteoporosis Personal history of nicotine dependence 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 Brother No problems noted. Sister No problems noted. Son No problems noted. Daughter No problems noted. Social History Housing: Apartment Alcohol intake: former Year quit: 2017 Patient Tobacco Use Status: Former Tobacco user Tobacco use type: Cigarette Years Smoked: 45 (onset 16yo, quit ~2017) e-Cigarette/Vaping Use: Never Used Substance Use Type: Marijuana service: No Current occupational status: disabled Cognitive needs: No Hearing needs: No Vision needs: Yes Questionnaire PHQ-9 Over the last 2 weeks, how often have you been bothered by any of the following problems? 1. Little interest or pleasure in doing things: not at all 2. Feeling down, depressed, or hopeless: not at all 3. Trouble falling or staying asleep, or sleeping too much: nearly every day 4. Feeling tired or having little energy: nearly every day 5. Poor appetite or overeating: not at all 6. Feeling bad about yourself - or that you are a failure or have let yourself or your family down: not at all 7. Trouble concentrating on things, such as reading the newspaper or watching television: not at all 8. Moving or speaking so slowly that other people could have noticed. Or the opposite - being so fidgety or restless that you have been moving around a lot more than usual: not at all 9. Thoughts that you would be better off or of hurting yourself in some way: not at all Total score: 6 Depression Screening Interpretation: Negative Depression Screening Done: Yes 04207 - PHQ-9 Billing: Yes Source: Developed by Drs. Estrada Fish, Kassidy Emery, Bossman Castellanos and colleagues, with an educational jaswant from [employer]. Thrive Questionnaire Date Thrive assessed: 11/01/24 I am a: Patient What is your living situation today?: I have a steady place to live Within the past 12 months, did the food you bought not last and you didn't have the money to get more?: I choose not to answer this question Within the past 12 months, did you worry whether your food would run out before you got money to buy more?: I choose not to answer this question Do you have trouble paying for medicines?: I choose not to answer this question Do you have trouble getting transportation to medical appointments?: I choose not to answer this question Do you have trouble paying your heating and electricity bill?: No Do you have trouble taking care of your child, family member or friend?: No Do you have trouble with day-to-day activities such as bathing, preparing meals, shopping, managing finances, etc.?: No Are you currently unemployed and looking for a job?: No Are you interested in more education?: No Please select the resources that you would like help with: None Currently or been in a relationship where the following occur: No concerns reported THRIVE Score: 0 AUDIT C Alcohol Use Questionnaire (AUDIT-C) 1. How often do you have a drink containing alcohol?: Never 3. How often do you have six or more drinks on one occasion?: Never Total Score: 0 Score Reviewed/Action Taken: Yes ZOLTAN-7 AMB Questionnaire ZOLTAN-7 Date ZOLTAN - 7 assessed: 11/01/24 Feeling nervous, anxious, or on edge: 0 = Not at all Not being able to stop or control worryin = Not at all Worrying too much about different things: 0 = Not at all Trouble relaxin = Not at all Being so restless that it is hard to sit still: 0 = Not at all Becoming easily annoyed or irritable: 0 = Not at all Feeling afraid as if something awful might happen: 0 = Not at all Total ZOLTAN-7 score (0-4 normal; 5-9 mild; 10-14 moderate; 15-21 severe): 0 Source: Developed by Drs. Estrada Fish, Kassidy Emery, Bossman Castellanos and colleagues, with an educational jaswant from [employer]. ZOLTAN-7 Assessment Billing ZOLTAN-7 Assessment Tool: ZOLTAN-7 Assessment 70940 Physical exam (Primary Care) Vital Signs: Last Vital Signs Temp 98.1 F 11/01/24 08:45 Pulse 67 11/01/24 08:45 BP 118/62 11/01/24 08:45 Pulse Ox 94 11/01/24 08:45 Oxygen Delivery Method Room Air 11/01/24 08:45 BMI result Body Mass Index 21.8 Tobacco/Smoking Status: Tobacco use Status Tobacco use date assessed 11/01/24 11/01/24 08:47 Patient Tobacco Use Status Former Tobacco user 11/01/24 08:47 Tobacco use type Cigarette 11/01/24 08:47 e-Cigarette/Vaping Use Never Used 11/01/24 08:47 PHQ-9: PHQ-9 Score PHQ-9: Total score 6 11/01/24 08:50 Depression Screening Interpretation: Negative Thrive Assessment: Date of Thrive Assessment Date Thrive assessed 11/01/24 11/01/24 08:47 Currently or been in a relationship where the following occur: No concerns reported Coding Level of Care Code Est Pt Level 4 (12014) Complex EM visit Add On G2211 Diagnoses Hypertension, essential I10 Other polyneuropathy G62.89 Peripheral neuropathy type: polyneuropathy, other Panlobular emphysema J43.1 COPD type: emphysema Emphysema type: panlobular Lipid disorder E78.9 Skin cancer screening Z12.83 Recurrent major depressive disorder, in full remission F33.42 Active/Remission status: in full remission Impaired fasting blood sugar R73.01 Cerebellar atrophy G31.9 Non-seasonal allergic rhinitis due to other allergic trigger J30.89 Allergic rhinitis seasonality: non-seasonal Allergic rhinitis trigger: other Moderate persistent asthma without complication J45.40 Asthma complication type: uncomplicated Asthma persistence: persistent Additional Codes ZOLTAN-7 Assessment Billing - ZOLTAN-7 Assessment Tool: ZOLTAN-7 Assessment 88378 ([id number]) PHQ-9 - 72636 - PHQ-9 Billing: Yes ([id number]) Assessment & Plan Assessment & Plan (1) Hypertension, essential: Code(s): I10 - Essential (primary) hypertension Category: Medical (2) Peripheral neuropathy: Code(s): G62.9 - Polyneuropathy, unspecified Category: Medical Qualifiers: Peripheral neuropathy type: polyneuropathy, other Qualified Code(s): G62.89 - Other specified polyneuropathies (3) COPD (chronic obstructive pulmonary disease): Comment: Patient has moderately severe obstructive airway disorder. Has been quite stable with her current regimen, but does get short of breath on minimal exertion. Code(s): J44.9 - Chronic obstructive pulmonary disease, unspecified Category: Medical Qualifiers: COPD type: emphysema Emphysema type: panlobular Qualified Code(s): J43.1 - Panlobular emphysema (4) Lipid disorder: Code(s): E78.9 - Disorder of lipoprotein metabolism, unspecified Category: Medical (5) Skin cancer screening: Code(s): Z12.83 - Encounter for screening for malignant neoplasm of skin Category: Medical (6) Depression, major, recurrent: Code(s): F33.9 - Major depressive disorder, recurrent, unspecified Category: Medical Qualifiers: Active/Remission status: in full remission Qualified Code(s): F33.42 - Major depressive disorder, recurrent, in full remission (7) Impaired fasting blood sugar: Code(s): R73.01 - Impaired fasting glucose Category: Medical (8) Cerebellar atrophy: Comment: Evaluated by Neurology Code(s): G31.9 - Degenerative disease of nervous system, unspecified Category: Medical (9) Allergic rhinitis: Comment: It is mild with seasonal exacerbations. Code(s): J30.9 - Allergic rhinitis, unspecified Category: Medical Qualifiers: Allergic rhinitis seasonality: non-seasonal Allergic rhinitis trigger: other Qualified Code(s): J30.89 - Other allergic rhinitis (10) Asthma, moderate: Comment: Patient has asthma/COPD overlap syndrome. [place]: See under COPD Code(s): J45.909 - Unspecified asthma, uncomplicated Category: Medical Qualifiers: Asthma complication type: uncomplicated Asthma persistence: persistent Qualified Code(s): J45.40 - Moderate persistent asthma, uncomplicated Plan History The patient is a 69-year-old female presenting with a regular follow-up appointment. - She seeks a referral to a afloat cryptologic manager for a persistent red spot on her nose. She has not undergone annual skin screenings as recommended. - In a recent consultation, Dr. Foley assessed her COPD as severe. While past pulmonary function tests have been conducted, a recent evaluation did not include such a test. - The patient's COPD-related symptoms do not yet necessitate the use of supplemental oxygen, with a pulse oximetry reading of 94% on room air. - Historical lab results indicate slight anemia, with hemoglobin levels usually around 11 - Past lab results identified hyperkalemia, with potassium at 5.2, and elevated vitamin B12 levels, for which supplementation has been halted. - She has a known history of osteopenia, indicative of decreased bone density. - The patient quit smoking and has abstained from alcohol consumption. Medications - Atorvastatin 40 mg for hyperlipidemia - Symbicort for COPD management - Vitamin D supplementation - Flonase for allergic rhinitis - Gabapentin 300 mg three times a day for neuropathy - Levothyroxine 25 mcg for hypothyroidism - Lisinopril 5 mg for hypertension - Venlafaxine 75 mg for depression Problem List - Chronic Obstructive Pulmonary Disease (COPD), severe - Osteopenia - Anemia - Hyperkalemia - Hypervitaminosis B12 - peripheral neuropathy - mild cerebral atrophy - risk for fall - red spots on nose - lipid disorder - hypothyroidism - hypertension - depression and anxiety Diagnostic results - Labs: Hemoglobin 11.5 indicating slight anemia; potassium 5.2 indicating hyperkalemia; vitamin B12 previously high but no longer supplemented; vitamin D and thyroid levels normal. [place] [facility] - Dr. Foley, ict security specialist, managing severe COPD. Patient Instructions - The patient is advised to attend an appointment with a afloat cryptologic manager for skin evaluation. - Continue current medications as prescribed. - Perform breathing exercises: Take deep breaths, hold for two seconds, and repeat 10 times, three times a day. - Attend follow-up appointment with Dr. Foley regarding COPD management. - Cease vitamin B12 supplementation. - Obtain lab work including electrolytes and vitamin B12 levels. Nonfasting tests are acceptable. - continue medications as prescribed Orders: Orders Complete Blood Count Auto Diff Today E78.9 - Disorder of lipoprotein metabolism, unspecified, F33.42 - Major depressive disorder, recurrent, in full remission, G31.9 - Degenerative disease of nervous system, unspecified, G62.89 - Other specified polyneuropathies, I10 - Essential (primary) hypertension, J30.89 - Other allergic rhinitis, J43.1 - Panlobular emphysema, J45.40 - Moderate persistent asthma, uncomplicated, R73.01 - Impaired fasting glucose Comprehensive Met. Panel Today E78.9 - Disorder of lipoprotein metabolism, unspecified, F33.42 - Major depressive disorder, recurrent, in full remission, G31.9 - Degenerative disease of nervous system, unspecified, G62.89 - Other specified polyneuropathies, I10 - Essential (primary) hypertension, J30.89 - Other allergic rhinitis, J43.1 - Panlobular emphysema, J45.40 - Moderate persistent asthma, uncomplicated, R73.01 - Impaired fasting glucose Vitamin B12 Today E78.9 - Disorder of lipoprotein metabolism, unspecified, F33.42 - Major depressive disorder, recurrent, in full remission, G31.9 - Degenerative disease of nervous system, unspecified, G62.89 - Other specified polyneuropathies, I10 - Essential (primary) hypertension, J30.89 - Other allergic rhinitis, J43.1 - Panlobular emphysema, J45.40 - Moderate persistent asthma, uncomplicated, R73.01 - Impaired fasting glucose Ferritin Today E78.9 - Disorder of lipoprotein metabolism, unspecified, F33.42 - Major depressive disorder, recurrent, in full remission, G31.9 - Degenerative disease of nervous system, unspecified, G62.89 - Other specified polyneuropathies, I10 - Essential (primary) hypertension, J30.89 - Other allergic rhinitis, J43.1 - Panlobular emphysema, J45.40 - Moderate persistent asthma, uncomplicated, R73.01 - Impaired fasting glucose Referrals Dermatology Referral Z12.83 - Encounter for screening for malignant neoplasm of skin
--- OUTSIDE RECORDS SUMMARY | 2024-11-01 09:06 | XMS_ITS | Patient Health Record ---
[facility] Address [address] [place] [address] Care Team Providers Care Rehabilitation Technician Name Role Phone Simeon DAWKINS, [facility] Primary [facility] Provider Alexis Weber Unavailable [phone] Allergies Allergen (clinical drug ingredient) Drug/Non Drug [...] Problem Status W/U Status Risk Notes Problem [id number] Atherosclerosis of [place] artery of both lower extremities, with unspecified presence of clinical manifestation (I70.203) Active confirmed Q7(A), Q8(2B), Q9(1B,2 C) Problem [id number] Essential hypertension (I10) Active confirmed Vital Signs Blood pressure diastolic 80 mm Hg 07/10/2024 Height 5ft8in in 07/10/2024 Blood pressure systolic 130 mm Hg 07/10/2024 Weight 145 lbs 07/10/2024 BMI 22.04 kg/m2 07/10/2024 Procedures Procedure Date Ordered Date Performed Result Body Sit e 65166-KKLUOHO NAIL, 1-5 04/06/2024 N/A 95187-MIGW SKIN LESIONS, OVER 4 04/06/2024 N/A O2753-JIQPOGRU DYSTROPHIC NAILS ANY # 04/06/2024 N/A 18140-KVZUSFZ NAIL, 1-5 07/10/2024 N/A 49109-KMLG SKIN LESIONS, OVER 4 07/10/2024 N/A C9585-CNFWUDJG DYSTROPHIC NAILS ANY # 07/10/2024 N/A Encounters Encounter Location Date Provider Diagnosis [facility] [address] 04/06/2024 Alexis Ureña Atherosclerosis of [place] artery of both lower extremities, with unspecified presence of clinical manifestation I70.203 ; Tinea unguium B35.1 ; Pain in right toe(s) M79.674 ; Pain in left toe(s) M79.675 ; Pain in right foot M79.671 ; Pain in right ankle and joints of right foot M25.571 ; Bursitis of right foot M77.51 and Tailor's bunion of right foot M21.621 [facility] [address] [address] 07/10/2024 Alexis Ureña Atherosclerosis of [place] artery of both lower extremities, with unspecified presence of clinical manifestation I70.203 ; Tinea unguium B35.1 ; Pain in right toe(s) M79.674 and Pain in left toe(s) M79.675 [facility] [place] [address] [address] 10/02/2024 Alexis Ureña Assessments Encounter Date Diagnosis (ICD Code) Assessment Notes Treatment Notes Treatment Clinical Notes Section Notes 04/06/2024 Tinea unguium (ICD-10 - B35.1) 04/06/2024 Atherosclerosis of [place] artery of both lower extremities, with unspecified presence of clinical manifestation (ICD-10 - I70.203) 07/10/2024 Tinea unguium (ICD-10 - B35.1) 07/10/2024 Atherosclerosis of [place] artery of both lower extremities, with unspecified [...] Treatment Pending Test Test Name Order Date [id number] NAIL, 1-5 04/06/2024 49148-ERIQAAJ NAIL, 1-5 07/10/2024 86280-FUWZ SKIN LESIONS, OVER 4 04/06/20 24 87512-VAQW SKIN LESIONS, OVER 4 07/10/20 24 M2984-BIHWTWFC DYSTROPHIC NAILS ANY # Y8279-NJEOHUPJ DYSTROPHIC NAILS ANY # Insurance Providers Payer Name Payer Address Payer Phone Subscriber Number Group Number Insured Name Patient Relationship to Insured Coverage Start Date Coverage End Date [id number] [address] [place] [phone] [id number] Krystin Gotti Self - patient is the insured Medical (General) History Medical History History ICD Code Anxiety asthma Back,Hip,and Knee pain Broken bones CAD (Cholesterol) Cancer Cataracts Depression Macular degeneration nerve disorder Numbness Osteoporosis thyroid Joint implants/screws Hypertension Surgical History Surgery Date(Month/Year) hip replacement
--- OUTSIDE RECORDS SUMMARY | 2024-11-01 09:06 | XMS_ITS ---
Author Organization [facility] Address [address] [place] [address] Care Team Providers Care Supervisor Microwave Name Role Phone Simeon DAWKINS, Asma Primary Care Provider Alexis Weber Unavailable [phone] Allergies Allergen (clinical drug ingredient) Drug/Non Drug [...] Problem Status W/U Status Risk Notes Problem 20089864 Essential hypertension (I10) Active confirmed Vital Signs Blood pressure systolic 130 mm Hg 07/10/20 24 Blood pressure diastolic 80 mm Hg 024 Height 5ft8in in 07/10/2024 Weight 145 lbs 07/10/2024 BMI 22.04 kg/m2 07/10/2024 Procedures Procedure Date Ordered Date Performed Result Body Sit e 78186-JAMFZLW NAIL, 1-5 07/10/2024 N/A 01573-OQWV SKIN LESIONS, OVER 4 07/10/2024 N/A A5772-XMQZARTM DYSTROPHIC NAILS ANY # 07/10/2024 N/A Encounters Encounter Location Date Provider Diagnosis [facility] [address] [address] 07/10/2024 Alexis Ureña Atherosclerosis of [place] artery of both lower extremities, with unspecified presence of clinical manifestation I70.203 ; Tinea unguium B35.1 ; Pain in right toe(s) M79.674 and Pain in left toe(s) M79.675 Assessments Encounter Date Diagnosis (ICD Code) Assessment Notes Treatment Notes Treatment Clinical Notes Section Notes 07/10/2024 Atherosclerosis of [place] artery of both lower extremities, with unspecified presence of clinical manifestation (ICD-10 - I70.203) Q7(A), Q8(2B), Q9(1B,2C) 07/10/2024 Tinea unguium (ICD-10 - B35.1) 07/10/2024 Pain in right toe(s) (ICD-10 - M79.674) 07/10/2024 Pain in left toe(s) (ICD-10 - M79.675) Plan Of Treatment Pending Test Test Name Order Date 25336-IYCKYDX NAIL, 1-5 07/10/2024 01096-VRXE SKIN LESIONS, OVER 4 07/10/20 24 R2686-ORMJODQA DYSTROPHIC NAILS ANY # Next Appt Details [...] tissue nippers, and/or power dremel instrumentation - 04053, Q8 Debride Nails 1-5 Procedure: Due to [...] necessary to maintain effective symptomatic relief - 42869 Nail Reduction Nail Reduction (-27) Trimming o [...] Krystin GOTTI EDOB: [birth year] (68 yo F)Acc No.[id number]:07/10/2024 Progress Note Patient:Krystin ASHFORD Provider:?Alexis Ureña DPM :1955???Age:68 Y???Sex:Female D ate:07/10/2024 Address:[address] [place] [address], [facility] Pcp:Teressa Hendrix MD Subjective: * Chief Complaints: [...] Assessment: 1.?Tinea unguium - B35.1???2 .?Atherosclerosis of [place] artery of both lower extremities, with unspecified presence of clinical manifestation - I70.203 (Primary)???Notes :Q7(A), Q8(2B), Q9(1B,2C)???3.?Pain in right toe(s) - M79.674???4.?Pain in left toe(s) - M79.675??? Plan: * Treatment: 2.?Tinea unguium?Procedure: 68159-RJLEDVH NAIL, 1-5 * Procedures:?Debride Nails 1-5:?Procedure:?Due to [...] necessary to maintain effective symptomatic relief - 56525.?Keratoma Treatment:?Parring or Cutting of Benign Hyperkeratotic Lesion(s)?(-57) [...] tissue nippers, and/or power dremel instrumentation - 71692, Q8.?Nail Reduction:?Nail Reduction?(-27) Trimming of all dystrophic [...] DYSTROPHIC NAILS ANY #, Modifiers: XS , [id number] DEBRIDE NAIL, 1-5, Modifiers: XS 75682 TRIM SKIN LESIONS, OVER 4, Modifiers: XS , Q8 * Follow Up:?prn * Images: * Sign off status: Completed true * Provider:?Alexis Ureña DPM Date:?2023 Generated for Lambert ortiz/Shana/Bessie on:?11/01/2024 09:06 AM EDT History and Physical Notes * [...]
--- OUTSIDE RECORDS SUMMARY | 2024-11-01 09:07 | XMS_ITS ---
Author Organization [facility] Address [address] [place] [address] Care Team Providers Care Master Motorcycle Technician Name Role Phone Simeon DAWKINS, Asma Primary Care Provider Alexis Weber Unavailable [phone] REASON FOR VISIT NS 10/02/24 appt Encounters Encounter Location Date [facility] [place] [address] [facility] [address] [place] [address] 10/02/2024 Alexis Ureña Plan Of Treatment No Information Progress Notes * Krystin GOTTI EDOB: [birth year] (69 yo F)Acc No.[id number]:10/02/2024 Patient:?Krystin GOTTI :1955???Age:69 Y???Sex:Female Address:[address] [place] [address] , [place], [address] * true * Date:? Generated for Printi ng/Faxing/eTransmitting on:?11/01/2024 09:06 AM EDT
--- OUTSIDE RECORDS SUMMARY | 2024-11-01 09:07 | XMS_ITS ---
Author Organization [facility] Address [address] [place] [address] Care Team Providers Care Tester Vibrator Equipment Name Role Phone Simeon DAWKINS, Teressa Primary Care Provider UnavailAlexis Garrison Unavailable [phone] Encounters Encounter Location Date [facility] [address] [address] 10/02/2024 Alexis Ureña Plan Of Treatment No Information Progress Notes * Krystin GOTTI EDOB: [birth year] (69 yo F)Acc No.[id number]:10/02/2024 Progress Note Patient:Yann ASHFORDen Loi Provider:?Alexis Ureña DPM :1955???Age:69 Y???Sex:Female D ate:10/02/2024 Address:[address] [place] [address] , [place] Pcp:Teressa Hendrix MD Subjective: * Chief Complaints: [...] Ureña DPM Date:?2024 Generated for Lambert Angling/Tenaitting on:?11/01/2024 09:07 AM EDT
== END 2024-11-01 09:05 | disposition home or self-care (01) ==
LOC: HO.HMCC 08:40
PROVIDERS: PCP Internal Medicine; Visit Provider Internal Medicine
DX: I10 Essential (primary) hypertension (principal); G62.89 Other specified polyneuropathies; J43.1 Panlobular emphysema; E78.9 Disorder of lipoprotein metabolism, unspecified; Z12.83 Encounter for screening for malignant neoplasm of skin; F33.42 Major depressive disorder, recurrent, in full remission; R73.01 Impaired fasting glucose; G31.9 Degenerative disease of nervous system, unspecified; J30.89 Other allergic rhinitis; J45.40 Moderate persistent asthma, uncomplicated

== ENCOUNTER 2024-11-01 08:40 | Outpatient (REF) | payer MEDICARE, SELFPAY ==
[2024-11-01 10:32] LABS: MANUAL DIFF FLAG NO
[2024-11-01 10:44] LABS: Basophils Absolute Auto 0.1 X10*3/uL (0.0-0.2); Basophils Percent Auto 0.7 % (0-2); Eosinophils Absolute Auto 0.3 X10*3/uL (0.0-0.4); Eosinophils Percent Auto 3.6 % (0-4); Hematocrit 33.1 % (37.0-47.0); Hemoglobin 10.8 g/dl (12.0-16.0); Imm Gran Abs Auto 0.01 X10*3/uL (0.00-0.03); Imm Gran Pct Auto 0.1 % (0.0-0.4); Lymphocytes Absolute Auto 1.8 X10*3/uL (1.2-4.9); Lymphocytes Percent Auto 25.2 % (20-40); Mean Corpuscular HGB Conc 32.6 g/dl (31.0-35.0); Mean Corpuscular Hemoglobin 30.2 pg (27.0-33.0); Mean Corpuscular Volume 92.5 fL (80.0-98.0); Mean Platelet Volume 9.7 fL (9.4-12.3); Monocytes Absolute Auto 0.9 X10*3/uL (0.1-1.2); Monocytes Percent Auto 12.8 % (2-11); Neutrophils Absolute Auto 4.2 x10*3/uL (2.0-8.3); Neutrophils Percent Auto 57.6 % (45-73); Platelet Count 291 X10*3/uL (160-400); Red Blood Count 3.58 X10*6/uL (4.20-5.50); Red Cell Distribution Width 13.8 % (11.0-16.0); White Blood Count 7.3 X10*3/uL (4.8-10.8)
[2024-11-01 11:27] LABS: Alanine Aminotransferase 20 U/L (0-31); Albumin Level 3.9 g/dL (3.5-5.0); Alkaline Phosphatase 63 U/L (39-117); Anion Gap 13 (12-20); Aspartate Amino Transferase 28 U/L (5-31); Bilirubin Total 0.2 mg/dL (0.0-1.0); Blood Urea Nitrogen 13 mg/dL (9-16); Calcium 9.5 mg/dL (8.4-10.2); Carbon Dioxide 30 mmol/L (22-29); Chloride 103 mmol/L (96-108); Cholesterol 142 mg/dL (<200); Estimated Glomerular Filt Rate > 60; Glucose Random 99 mg/dL (60-115); HDL Cholesterol 61 mg/dL (>40); LDL Cholesterol Calculated 67 mg/dL (<100); Potassium 4.8 mmol/L (3.3-5.1); Sodium 141 mmol/L (135-145); Total Protein 6.8 g/dL (6.5-8.0); Triglycerides 72 mg/dL (<150)
[2024-11-01 11:45] LABS: Vitamin B12 793 pg/mL (200-900)
[2024-11-01 11:48] LABS: Ferritin 61 ng/mL (10-250); TSH reflex Free T4 2.64 uIU/mL (0.32-4.0)
[2024-11-06 14:28] LABS: Vitamin D 25-OH, D2 <4 ng/mL; Vitamin D 25-OH, D3 45 ng/mL; Vitamin D 25-OH, Total 45 ng/mL (30-100)
== END 2024-11-01 08:41 | disposition home or self-care (01) ==
LOC: HO.HMGCLDS 08:40
PROVIDERS: PCP Internal Medicine; Visit Provider Internal Medicine
DX: I10 Essential (primary) hypertension (principal); G62.89 Other specified polyneuropathies; J43.1 Panlobular emphysema; E78.9 Disorder of lipoprotein metabolism, unspecified; F33.42 Major depressive disorder, recurrent, in full remission; R73.01 Impaired fasting glucose; G31.9 Degenerative disease of nervous system, unspecified; J30.89 Other allergic rhinitis; J45.40 Moderate persistent asthma, uncomplicated; Z79.899 Other long term (current) drug therapy; N39.3 Stress incontinence (female) (male); M85.80 Other specified disorders of bone density and structure, unspecified site; E55.9 Vitamin D deficiency, unspecified; E03.8 Other specified hypothyroidism
CPT/HCPCS: 36415; 80053; 80061; 82306; 82607; 82728; 84443; 85025; 96127; 99212

== ENCOUNTER 2024-11-09 09:44 | Outpatient (AMB) | payer MEDICARE, SELFPAY ==
[2024-11-09 10:02] VITALS: BP 102/52; PULSE 59; O2SAT 93; BMI 21.6
--- NOTE | 2024-11-09 10:02 | A.OFFVIS_ITS ---
Vital Signs 11/09/24 10:02 Height 5 ft 8 in Weight 142 lb 3.17 oz BMI 21.6 BP 102/52 L Blood Pressure Location Lt brachial Position Sitting Pulse 59 Pulse Source Pulse Oximeter Pulse Oximetry (%) 93 Oxygen Delivery Method Room Air Intake Visit Reasons: Cough Intake Note: pt is here for follow up and states she has some good days with breathing, and on bad days with walking she does get short of breath. Diet Aide Required: No Allergies ENVIROMENTAL Allergy (Unknown, Uncoded 11/09/24 10:06) WHEEZING,COUGH HPI HPI Cough: Details: This 69 years old very pleasant female is here for follow-up after 2 months. She has only minimal residual dysphonia, but can speak well . There is no significant discomfort in the oropharynx. Breathing is holding very stable except for mild shortness of breath on walking up hill or climbing stairs, and mild cough induced by speaking. Weight is unchanged. 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 Brother No problems noted. Sister No problems noted. Son No problems noted. Daughter No problems noted. Social History Housing: Apartment Alcohol intake: former Year quit: 2017 Patient Tobacco Use Status: Former Tobacco user Tobacco use type: Cigarette Years Smoked: 45 (onset 16yo, quit ~2017) e-Cigarette/Vaping Use: Never Used Substance Use Type: Marijuana service: No Current occupational status: disabled Cognitive needs: No Hearing needs: No Vision needs: Yes Review of Systems Const All systems reviewed & are unremarkable except as noted in HPI and below ENT Reports nasal congestion (OFF AND ON ) Card Denies chest pain, Denies leg edema and Reports dyspnea on exertion (MILD ) Resp Reports cough (OCCASIONAL ) and Reports dyspnea on exertion (MILD ) GI Reports no additional complaints Musc Reports no additional complaints Neuro Reports no additional complaints Psych Reports no additional complaints Endo Reports no additional complaints Physical Exam Vital Signs: Last Vital Signs Pulse 59 11/09/24 10:02 BP 102/52 L 11/09/24 10:02 Pulse Ox 93 11/09/24 10:02 Oxygen Delivery Method Room Air 11/09/24 10:02 BMI result Body Mass Index 21.6 Const General: healthy appearing, comfortable, no acute distress, alert and awake Orientation/consciousness: patient oriented x3 HEENT Head: Yes normal to inspection General nose exam: No nasal polyps present and No nasal discharge present Face and sinus: Yes sinuses nontender Mouth: oropharynx normal Throat: Yes posterior oropharynx normal Eyes General: appearance normal, both eyes and all related structures Neck Neck: Yes normal visual inspection, Yes no lymphadenopathy, Yes trachea midline and Yes no JVD Thyroid: Thyroid normal Chest Chest palpation & inspection: normal inspection of the chest, normal palpation of entire chest wall and no tenderness Resp Other: Percussion note is resonant. Breath sounds are distant with prolonged expiratory phase. No wheezes rhonchi or crepitations are heard. Effort & Inspection: prolonged expiratory phase Auscultation: no crackles, no wheezes and diminished lung sounds Cardio Palpation: normal PMI Rate: regular rate Rhythm: regular rhythm Heart sounds: no gallops and no murmurs Peripheral pulses: Peripheral pulses 2+ throughout GI Palpation (GI): Soft to palpation, nontender, No hepatosplenomegaly present and no masses Auscultation: normal bowel sounds Back/Spine/Pelvis Thoracic/Lumbar Spine: thoracic and lumbar spine normal to inspection Skin General skin exam: no rashes or lesions noted Neuro General: patient oriented x3 and no focal motor deficits Cranial nerves: Yes CN's II-XII intact bilaterally Extrem General: Yes normal to inspection, Yes no clubbing, cyanosis or edema, Yes no calf tenderness and No venous stasis dermatitis Psych Appearance: grossly normal and well kempt Speech and movement: Normal speech and movement present Assessment & Plan Assessment & Plan (1) COPD (chronic obstructive pulmonary disease): Comment: Patient has moderately severe obstructive airway disorder. Has been quite stable with her current regimen, but does get short of breath on minimal exertion. Tolerating the use of Symbicort well. Code(s): J44.9 - Chronic obstructive pulmonary disease, unspecified Category: Medical Qualifiers: COPD type: emphysema Emphysema type: panlobular Qualified Code(s): J43.1 - Panlobular emphysema Plan: Advised to continue using Symbicort 160-4.52 puffs b.i.d. Gargle the throat thoroughly after using Symbicort. Albuterol HFA 2 puffs Q 4-6 hours only p.r.n./ (2) Allergic rhinitis: Comment: It is mild with seasonal exacerbations. Code(s): J30.9 - Allergic rhinitis, unspecified Category: Medical Qualifiers: Allergic rhinitis trigger: other Allergic rhinitis seasonality: non- seasonal Qualified Code(s): J30.89 - Other allergic rhinitis Plan: May use Flonase 1 or 2 sprays in each nostril daily p.r.n. (3) Hoarseness of voice: Comment: Patient has only mild degree of dysphonia. Definitely much improved from before. Code(s): R49.0 - Dysphonia Category: Medical Plan: Continue rinsing the oropharynx after use of Symbicort , regularly Coding Level of Care Code Est Pt Level 3 (19470) Diagnoses Panlobular emphysema J43.1 COPD type: emphysema Emphysema type: panlobular Non-seasonal allergic rhinitis due to other allergic trigger J30.89 Allergic rhinitis trigger: other Allergic rhinitis seasonality: non-seasonal Hoarseness of voice R49.0
--- OUTSIDE RECORDS SUMMARY | 2024-11-09 10:58 | XMS_ITS ---
Author Organization [facility] Address [address] [place] [address] Care Team Providers Care Flow Machine Operator Name Role Phone Simeon DAWKINS, Asma Primary Care Provider Alexis Weber Unavailable [phone] REASON FOR VISIT NS 10/02/24 appt Encounters Encounter Location Date [facility] [place] [address] [facility] [address] [place] [address] 10/02/2024 Alexis Ureña Plan Of Treatment No Information Progress Notes * Krystin GOTTI EDOB: [birth year] (69 yo F)Acc No.[id number]:10/02/2024 Patient:?Krystin GOTTI :1955???Age:69 Y???Sex:Female Address:[address] [place] [address] , [place], [address] * true * Date:? Generated for Printi ng/Faantonyg/eTransmitting on:?11/09/2024 10:58 AM EDT
--- OUTSIDE RECORDS SUMMARY | 2024-11-09 10:58 | XMS_ITS | Patient Health Record ---
[facility] Address [address] [place] [address] Care Team Providers Care Broke Handler Name Role Phone Simeon DAWKINS, [facility] Primary Care Provider Alexis Weber Unavailable [phone] Allergies Allergen (clinical drug ingredient) Drug/Non Drug [...] Problem Status W/U Status Risk Notes Problem [id number] Atherosclerosis of [place] artery of both lower extremities, with unspecified presence of clinical manifestation (I70.203) Active confirmed Q7(A), Q8(2B), Q9(1B,2 C) Problem 37062284 Essential hypertension (I10) Active confirmed Vital Signs Blood pressure diastolic 80 mm Hg 07/10/2024 Height 5ft8in in 07/10/2024 Blood pressure systolic 130 mm Hg 07/10/2024 Weight 145 lbs 07/10/2024 BMI 22.04 kg/m2 07/10/2024 Procedures Procedure Date Ordered Date Performed Result Body Sit e 72436-AOEGYOE NAIL, 1-5 04/06/2024 N/A 08402-SLCI SKIN LESIONS, OVER 4 04/06/2024 N/A T7636-DMRBYBCG DYSTROPHIC NAILS ANY # 04/06/2024 N/A 88061-WEYYCJC NAIL, 1-5 07/10/2024 N/A 14975-NZDG SKIN LESIONS, OVER 4 07/10/2024 N/A A7009-GHKSZWLC DYSTROPHIC NAILS ANY # 07/10/2024 N/A Encounters Encounter Location Date Provider Diagnosis [facility] [address] 04/06/2024 Alexis Ureña Atherosclerosis of [place] artery of both lower extremities, with unspecified presence of clinical manifestation I70.203 ; Tinea unguium B35.1 ; Pain in right toe(s) M79.674 ; Pain in left toe(s) M79.675 ; Pain in right foot M79.671 ; Pain in right ankle and joints of right foot M25.571 ; Bursitis of right foot M77.51 and Tailor's bunion of right foot M21.621 [facility] [address] [address] 07/10/2024 Alexis rUeña Atherosclerosis of [place] artery of both lower extremities, with unspecified presence of clinical manifestation I70.203 ; Tinea unguium B35.1 ; Pain in right toe(s) M79.674 and Pain in left toe(s) M79.675 [facility] [address] [address] 10/02/2024 Alexis Ureña Assessments Encounter Date Diagnosis (ICD Code) Assessment Notes Treatment Notes Treatment Clinical Notes Section Notes 04/06/2024 Tinea unguium (ICD-10 - B35.1) 04/06/2024 Atherosclerosis of [place] artery of both lower extremities, with unspecified presence of clinical manifestation (ICD-10 - I70.203) 07/10/2024 Tinea unguium (ICD-10 - B35.1) 07/10/2024 Atherosclerosis of [place] artery of both lower extremities, with unspecified [...] Treatment Pending Test Test Name Order Date 17227-FGVGOUF NAIL, 1-5 04/06/2024 16163-ZVMVIWX NAIL, 1-5 07/10/2024 27363-DNTC SKIN LESIONS, OVER 4 04/06/20 24 42324-WRTK SKIN LESIONS, OVER 4 07/10/20 24 M8310-OFJOKABQ DYSTROPHIC NAILS ANY # Q9421-JTZFNSHC DYSTROPHIC NAILS ANY # Insurance Providers Payer Name Payer Address Payer Phone Subscriber Number Group Number Insured Name Patient Relationship to Insured Coverage Start Date Coverage End Date [facility] [address] [address] [place] [phone] [id number] Krystin Gotti Self - patient is the insured Medical (General) History Medical History History ICD Code Anxiety asthma Back,Hip,and Knee pain Broken bones CAD (Cholesterol) Cancer Cataracts Depression Macular degeneration nerve disorder Numbness Osteoporosis thyroid Joint implants/screws Hypertension Surgical History Surgery Date(Month/Year) hip replacement
--- OUTSIDE RECORDS SUMMARY | 2024-11-09 10:58 | XMS_ITS ---
Author Organization [facility] Address [address] [place] [address] Care Team Providers Care Resource Recovery Engineer Name Role Phone Simeon DAWKINS, Asma Primary Care Provider Alexis Weber Unavailable [phone] Allergies Allergen (clinical drug ingredient) Drug/Non Drug [...] Problem Status W/U Status Risk Notes Problem 70970500 Essential hypertension (I10) Active confirmed Vital Signs Height 5ft8in in 07/10/2024 Weight 145 lbs 07/10/2024 BMI 22.04 kg/m2 07/10/2024 Blood pressure systolic 130 mm Hg 07/10/20 24 Blood pressure diastolic 80 mm Hg 024 Procedures Procedure Date Ordered Date Performed Result Body Sit e 29600-DLCKMFT NAIL, 1-5 07/10/2024 N/A 33781-FGNX SKIN LESIONS, OVER 4 07/10/2024 N/A P3936-LVBCFRMJ DYSTROPHIC NAILS ANY # 07/10/2024 N/A Encounters Encounter Location Date Provider Diagnosis [facility] [address] [address] 07/10/2024 Alexis Ureña Atherosclerosis of [place] artery of both lower extremities, with unspecified presence of clinical manifestation I70.203 ; Tinea unguium B35.1 ; Pain in right toe(s) M79.674 and Pain in left toe(s) M79.675 Assessments Encounter Date Diagnosis (ICD Code) Assessment Notes Treatment Notes Treatment Clinical Notes Section Notes 07/10/2024 Atherosclerosis of [place] artery of both lower extremities, with unspecified presence of clinical manifestation (ICD-10 - I70.203) Q7(A), Q8(2B), Q9(1B,2C) 07/10/2024 Tinea unguium (ICD-10 - B35.1) 07/10/2024 Pain in right toe(s) (ICD-10 - M79.674) 07/10/2024 Pain in left toe(s) (ICD-10 - M79.675) Plan Of Treatment Pending Test Test Name Order Date 85358-GORAPNK NAIL, 1-5 07/10/2024 61673-XTVE SKIN LESIONS, OVER 4 07/10/20 24 P2542-FYHJKHIG DYSTROPHIC NAILS ANY # Next Appt Details [...] tissue nippers, and/or power dremel instrumentation - 99543, Q8 Debride Nails 1-5 Procedure: Due to [...] necessary to maintain effective symptomatic relief - 70284 Nail Reduction Nail Reduction (-27) Trimming o [...] Krystin GOTTI EDOB: [birth year] (68 yo F)Acc No.[id number]:07/10/2024 Progress Note Patient:Krystin ASHFORD Provider:?Alexis Ureña DPM :1955???Age:68 Y???Sex:Female D ate:07/10/2024 Address:[address] [place] [address], [facility] Pcp:Teressa Hendrix MD Subjective: * Chief Complaints: [...] Assessment: 1.?Tinea unguium - B35.1???2 .?Atherosclerosis of [place] artery of both lower extremities, with unspecified presence of clinical manifestation - I70.203 (Primary)???Notes :Q7(A), Q8(2B), Q9(1B,2C)???3.?Pain in right toe(s) - M79.674???4.?Pain in left toe(s) - M79.675??? Plan: * Treatment: 2.?Tinea unguium?Procedure: 92211-SMJARVC NAIL, 1-5 * Procedures:?Debride Nails 1-5:?Procedure:?Due to [...] necessary to maintain effective symptomatic relief - 35134.?Keratoma Treatment:?Parring or Cutting of Benign Hyperkeratotic Lesion(s)?(-57) [...] tissue nippers, and/or power dremel instrumentation - 90726, Q8.?Nail Reduction:?Nail Reduction?(-27) Trimming of all dystrophic [...] DYSTROPHIC NAILS ANY #, Modifiers: XS , U159404 DEBRIDE NAIL, 1-5, Modifiers: XS 39067 TRIM SKIN LESIONS, OVER 4, Modifiers: XS , Q8 * Follow Up:?prn * Images: * Sign off status: Completed true * Provider:?Alexis Ureña DPM Date:?2023 Generated for Lambert ortiz/Shana/Bessie on:?11/09/2024 10:57 AM EDT History and Physical Notes * [...]
--- OUTSIDE RECORDS SUMMARY | 2024-11-09 10:58 | XMS_ITS ---
Author Organization [facility] Address [address] [place] [address] Care Team Providers Care Customer Service Rep Name Role Phone Simeon DAWKINS, Teressa Primary Care Provider UnavailAlexis Garrison Unavailable [phone] Encounters Encounter Location Date Provider [facility] [address] [address] 10/02/2024 Alexis Ureña Plan Of Treatment No Information Progress Notes * Krystin GOTTI EDOB: [birth year] (69 yo F)Acc No.[id number]:10/02/2024 Progress Note Patient:MAKEDA Krystin Loi Provider:?Alexis Ureña DPM :1955???Age:69 Y???Sex:Female D ate:10/02/2024 Address:[address] [place] [address] , [place] Pcp:Teressa Hendrix MD Subjective: * Chief Complaints: [...] Ureña DPM Date:?2024 Generated for Lambert Angling/Tenaitting on:?11/09/2024 10:58 AM EDT
== END 2024-11-09 10:29 | disposition home or self-care (01) ==
LOC: HO.HPS 09:44
PROVIDERS: PCP Internal Medicine; Visit Provider Internal Medicine
DX: J43.1 Panlobular emphysema (principal); J30.89 Other allergic rhinitis; R49.0 Dysphonia
CPT/HCPCS: 99213

== ENCOUNTER → 2024-11-09 09:44 | Outpatient (BNVA) | payer MEDICARE, SELFPAY | PROVIDERS: PCP Internal Medicine; Visit Provider Internal Medicine | DX: J43.1 Panlobular emphysema (principal); J30.89 Other allergic rhinitis; R49.0 Dysphonia; Z87.891 Personal history of nicotine dependence | CPT/HCPCS: 99212 ==

== ENCOUNTER 2025-02-12 11:55 | Outpatient (AMB) | payer MEDICARE, SELFPAY ==
[2025-02-12 12:56] VITALS: BP 130/56; PULSE 51; TEMP 36.8; O2SAT 96; BMI 21.7
--- NOTE | 2025-02-12 12:56 | AM.OFFWIN_ITS ---
Intake Vital Signs 02/12/25 12:56 Height 5 ft 8 in Weight 143 lb BMI 21.7 BP 130/56 L Blood Pressure Location Rt brachial Position Sitting Pulse 51 Pulse Source Pulse Oximeter Temp 98.2 F Temp Source Oral Pulse Oximetry (%) 96 Oxygen Delivery Method Room Air Intake Visit Reasons: EP-lt ankle pain & swollen Intake Note: presents with left ankle pain and swelling, warm to touch for almost a week, denies any injury Patient Tobacco Use Status: Former Tobacco user Allergies pollen extracts Allergy (Mild, Verified 02/12/25 12:57) Sneezing ENVIROMENTAL Allergy (Unknown, Uncoded 11/09/24 10:06) WHEEZING,COUGH Do you need a note to return to daycare/school/sports/work: No HPI HPI Comments History of Present Illness Details History - The patient is a 69-year-old female pr esenting with left lateral ankle swelling. - The swelling began about a week ago wi thout any known injury. - The patient was walking extensively du ring a vacation a couple of weeks ago, which may have contributed to the condition. - She denies any personal history of blo od clots but is concerned due to her sister's history of obesity and immobility-related clots. - The patient applied ice to the affecte d area, which did not provide significant relief. - The swelling causes pain when walking for extended periods. - patient denies any active cancer, she is not a smoker and she has not had any recent surgeries which left her a mobile or taken any long plane rides recently. Physical Exam General: Cooperative, healthy appearing, comfortable, no acute distress and well developed Orientation: Patient oriented x3 Limitations: No limitations Head: Normal to inspection Ears: Hearing grossly normal bilaterally Nose: Normal External nose present Face and sinus: Normal facial exam Mouth: normal, moist oral mucosa Eyes: Appearance abnormal, both eyes are melty Neck: Normal visual inspection and Yes full ROM Respiratory: Normal respiratory effort and able to speak in complete sentences. 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 Brother No problems noted. Sister No problems noted. Son No problems noted. Daughter No problems noted. Social History Housing: Apartment Alcohol intake: former Year quit: 2017 Patient Tobacco Use Status: Former Tobacco user Tobacco use type: Cigarette Years Smoked: 45 (onset 16yo, quit ~2017) e-Cigarette/Vaping Use: Never Used Substance Use Type: Marijuana service: No Current occupational status: disabled Cognitive needs: No Hearing needs: No Vision needs: Yes Review of Systems Const All systems reviewed & are unremarkable except as noted in HPI and below Physical Exam Vital Signs: Last Vital Signs Temp 98.2 F 02/12/25 12:56 Pulse 51 02/12/25 12:56 BP 130/56 L 02/12/25 12:56 Pulse Ox 96 02/12/25 12:56 Oxygen Delivery Method Room Air 02/12/25 12:56 BMI result Body Mass Index 21.7 Assessment & Plan Assessment & Plan (1) Ankle edema: Code(s): M25.473 - Effusion, unspecified ankle Plan: Plan Patient was informed and verbally consented to the use of an ambient scribe for clinic note documentation during this visit Left Lateral Ankle Swelling - The patient will undergo an x-ray to evaluate the cause of the swelling. - Consideration of differential diagnoses including possible cellulitis vs musculoskeletal strain. - Less likely deep vein thrombosis as no risk factors and location is inappropriate for DVT. - my interpretation of the x-ray is no acute fracture or dislocation of the left ankle, you can see some mild soft tissue swelling. We will Oziel wrap ankle recommend rest ice and ibuprofen and follow-up with PCP if it continues to cause her pain after the next couple of weeks of RICE therapy. (2) Ankle pain, left: Code(s): M25.572 - Pain in left ankle and joints of left foot Qualifiers: Chronicity: acute Qualified Code(s): M25.572 - Pain in left ankle and joints of left foot Plan: as above Orders: Orders XR ankle LT min 3V Today M25.473 - Effusion, unspecified ankle, M25.572 - Pain in left ankle and joints of left foot Coding Level of Care Code Est Pt Level 4 (89792) Diagnoses Ankle edema M25.473 Acute left ankle pain M25.572 Chronicity: acute
--- OUTSIDE RECORDS SUMMARY | 2025-02-12 13:01 | XMS_ITS | Patient Health Record ---
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 Name Role Phone Simeon DAWKINS[facility] Primary [facility] Provider Alexis Weber Unavailable [phone] Allergies Allergen (clinical drug ingredient) Drug/Non Drug [...] Problem Status W/U Status Risk Notes Problem Bilateral atherosclerosis of arteries of lower limbs (disorder) ([id number] ) Atherosclerosis of [place] artery of both lower extremities, with unspecified presence of clinical manifestation (I70.203) Active confirmed Q7(A), Q8(2B), Q9(1B,2 C) Problem Essential hypertension (65854644) Essential hypertension (I10) Active confirmed Vital Signs Blood pressure diastolic 80 mm Hg 07/10/2024 Height 5ft8in in 07/10/2024 Blood pressure systolic 130 mm Hg 07/10/2024 Weight 145 lbs 07/10/2024 BMI 22.04 kg/m2 07/10/2024 Procedures Procedure Date Ordered Date Performed Result Body Sit e 89310-BRITYQS NAIL, 1-5 04/06/2024 N/A 18445-YHPT SKIN LESIONS, OVER 4 04/06/2024 N/A [id number] DYSTROPHIC NAILS ANY # 04/06/2024 N/A 64639-AIHYVVX NAIL, 1-5 07/10/2024 N/A 91881-ICQA SKIN LESIONS, OVER 4 07/10/2024 N/A G5942-[id number] DYSTROPHIC NAILS ANY # 07/10/2024 N/A Encounters Encounter Location Date Provider Diagnosis [facility] [address] [place] [phone] 04/06/2024 Alexis Ureña Atherosclerosis of [place] artery of both lower extremities, with unspecified presence of clinical manifestation I70.203 ; Tinea unguium B35.1 ; Pain in right toe(s) M79.674 ; Pain in left toe(s) M79.675 ; Pain in right foot M79.671 ; Pain in right ankle and joints of right foot M25.571 ; Bursitis of right foot M77.51 and Tailor's bunion of right foot M21.621 [facility] [place] [address] [place] [phone] 07/10/2024 Aelxis Ureña Atherosclerosis of [place] artery of both lower extremities, with unspecified presence of clinical manifestation I70.203 ; Tinea unguium B35.1 ; Pain in right toe(s) M79.674 and Pain in left toe(s) M79.675 [facility] [place] [address] [place] [phone] 10/02/2024 Alexis Ureña Assessments Encounter Date Diagnosis (ICD Code) Assessment Notes Treatment Notes Treatment Clinical Notes Section Notes 04/06/2024 Tinea unguium (ICD-10 - B35.1) 04/06/2024 Atherosclerosis of [place] artery of both lower extremities, with unspecified presence of clinical manifestation (ICD-10 - I70.203) 07/10/2024 Tinea unguium (ICD-10 - B35.1) 07/10/2024 Atherosclerosis of [place] artery of both lower extremities, with unspecified [...] Treatment Pending Test Test Name Order Date [id number] NAIL, 1-04/06/2024 75115-RMHADAZ NAIL, 1-07/10/2024 25527-LGFR SKIN LESIONS, OVER 4 04/06/20 24 57679-FMYB SKIN LESIONS, OVER 4 07/10/20 24 R5316-TJVXIWCE DYSTROPHIC NAILS ANY # V3171-WQHTEXTB DYSTROPHIC NAILS ANY # Insurance Providers Payer Name Payer Address Payer Phone Subscriber Number Group Number Insured Name Patient Relationship to Insured Coverage Start Date Coverage End Date [facility] [address] [address] [place] [phone] [id number] Krystin Gotti Self - patient is the insured Medical (General) History Medical History History ICD Code Anxiety asthma Back,Hip,and Knee pain Broken bones CAD (Cholesterol) Cancer Cataracts Depression Macular degeneration nerve disorder Numbness Osteoporosis thyroid Joint implants/screws Hypertension Surgical History Surgery Date(Month/Year) hip replacement
== END 2025-02-12 14:14 | disposition home or self-care (01) ==
PROVIDERS: PCP Internal Medicine; Visit Provider Physician Assistant
DX: M25.473 Effusion, unspecified ankle (principal); M25.572 Pain in left ankle and joints of left foot

== ENCOUNTER 2025-02-12 11:55 | Outpatient (REF) | payer MEDICARE, SELFPAY ==
--- NOTE | ~2025-02-12 | XR_ITS ---
EXAMINATION: XR ANKLE 3 OR MORE VIEWS LEFT HISTORY: M25.473 - Effusion, unspecified ankle COMPARISON: Comparison is made with the prior examination dated 11/12/2021. FINDINGS: Three views of the left ankle are submitted. The bones are osteopenic. There is no fracture or dislocation. The joint spaces are preserved. There is mild soft tissue swelling laterally. XR/XR ankle LT min 3V IMPRESSION: Mild lateral soft tissue swelling. No evidence of fracture of the left ankle. Electronically signed by: Estrada Grossman MD 02/12/2025 02:04 PM EDT
== END 2025-02-12 11:56 | disposition home or self-care (01) ==
LOC: HO.HMGCX 11:55
PROVIDERS: PCP Internal Medicine; Visit Provider Physician Assistant
DX: M25.572 Pain in left ankle and joints of left foot (principal); M25.472 Effusion, left ankle
CPT/HCPCS: 73610; 99212

== ENCOUNTER → 2025-02-12 13:41 | Outpatient (BNV) | payer MEDICARE, SELFPAY | PROVIDERS: PCP Internal Medicine; Visit Provider Radiology Diagnostic Radiology | DX: M25.472 Effusion, left ankle (principal) | CPT/HCPCS: 73610 ==

== ENCOUNTER 2025-03-06 09:57 | Outpatient (REF) | payer MEDICARE, SELFPAY ==
[2025-03-06 13:42] LABS: MANUAL DIFF FLAG NO
[2025-03-06 13:53] LABS: Hematocrit 34.8 % (37.0-47.0); Hemoglobin 11.2 g/dl (12.0-16.0); Imm Gran Abs Auto 0.02 X10*3/uL (0.00-0.03); Imm Gran Pct Auto 0.3 % (0.0-0.4); Lymphocytes Absolute Auto 1.2 X10*3/uL (1.2-4.9); Mean Corpuscular HGB Conc 32.2 g/dl (31.0-35.0); Mean Corpuscular Hemoglobin 30.3 pg (27.0-33.0); Mean Corpuscular Volume 94.1 fL (80.0-98.0); NRBC Abs Auto 0.000 X10*3/uL (0.0-0.012); NRBC Pct Auto 0.0 /100WBC (0.0-0.2); Platelet Count 294 X10*3/uL (160-400); Red Blood Count 3.70 X10*6/uL (4.20-5.50); White Blood Count 6.3 X10*3/uL (4.8-10.8)
[2025-03-06 14:21] LABS: Alanine Aminotransferase 19 U/L (0-31); Albumin Level 4.1 g/dL (3.5-5.0); Alkaline Phosphatase 62 U/L (39-117); Anion Gap 13 (12-20); Aspartate Amino Transferase 27 U/L (5-31); Blood Urea Nitrogen 12 mg/dL (9-16); Calcium 9.2 mg/dL (8.4-10.2); Carbon Dioxide 30 mmol/L (22-29); Chloride 104 mmol/L (96-108); Estimated Glomerular Filt Rate > 60; Iron 71 mcg/dL (30-160); Percent Iron Saturation 27 % (15-50); Potassium 4.5 mmol/L (3.3-5.1); Sodium 142 mmol/L (135-145); Total Iron Binding Capacity 259 mcg/dL (228-428); Total Protein 6.9 g/dL (6.5-8.0); Unsaturated Iron Binding 188 ug/dL
[2025-03-06 14:24] LABS: Vitamin B12 1228 pg/mL (200-900)
[2025-03-06 14:29] LABS: Ferritin 46 ng/mL (10-250)
== END 2025-03-06 09:58 | disposition home or self-care (01) ==
LOC: HO.HMGCLDS 09:57
PROVIDERS: PCP Internal Medicine; Visit Provider Internal Medicine
DX: I10 Essential (primary) hypertension (principal); E78.9 Disorder of lipoprotein metabolism, unspecified; F33.42 Major depressive disorder, recurrent, in full remission; R73.01 Impaired fasting glucose; E03.8 Other specified hypothyroidism; E55.9 Vitamin D deficiency, unspecified; G62.89 Other specified polyneuropathies; J43.1 Panlobular emphysema; G31.9 Degenerative disease of nervous system, unspecified; J30.89 Other allergic rhinitis; J45.40 Moderate persistent asthma, uncomplicated
CPT/HCPCS: 36415; 80053; 82607; 82728; 83540; 85025; 96127; 99212

== ENCOUNTER 2025-03-06 09:57 | Outpatient (AMB) | payer MEDICARE, SELFPAY ==
[2025-03-06 10:01] VITALS: BP 110/60; PULSE 67; TEMP 36.8; O2SAT 95; BMI 21.6
--- NOTE | 2025-03-06 10:01 | A.OFFPC_ITS ---
Vital Signs 03/06/25 10:01 Height 5 ft 8 in Weight 142 lb BMI 21.6 BP 110/60 Blood Pressure Location Lt brachial Position Sitting Pulse 67 Pulse Source Pulse Oximeter Temp 98.2 F Temp Source Oral Pulse Oximetry (%) 95 Oxygen Delivery Method Room Air Intake Visit Reasons: 3 months f/up Wringer Operator Required: No Allergies pollen extracts Allergy (Mild, Verified 03/06/25 10:01) Sneezing ENVIROMENTAL Allergy (Unknown, Uncoded 11/09/24 10:06) WHEEZING,COUGH Medication List - Last Reconciled 03/06/25 by Teressa Hendrix MD albuterol sulfate 90 mcg/actuation 2 puffs PO Q4-6H PRN ascorbic acid (vitamin C) mg PO aspirin (Adult Low Dose Aspirin) 81 mg PO .every other day 90 days atorvastatin 40 mg PO DAILY 90 days budesonide-formoterol 160-4.5 mcg/actuation (Symbicort) 2 puffs inhalation BID 90 days cholecalciferol (vitamin D3) 25 mcg PO DAILY fluticasone propionate 50 mcg/actuation (Flonase Allergy Relief) 1 spray intranasal BID gabapentin 300 mg PO TID 90 days levothyroxine 25 mcg PO DAILY lisinopril 5 mg PO DAILY 90 days cipmgraf-vlb-yvlnc acid-lutein 400-250 mcg (Centrum Silver) 2 tabs PO DAILY omega 6-eks-dff-fish oil 1,200 (144-216) mg (Fish Oil) caps PO venlafaxine ER 75 mg PO DAILY 90 days Tobacco use date assessed: 11/01/24 Fall risk assessment: No Falls in past year Last assessed Fall Risk: 03/06/25 Dental Screening Dental Screen Date: 11/01/24 HPI 3 months f/up HPI Details History - The patient is a 69-year-old female pr esenting for ongoing care She has a history of hyperlipidemia, asthma, neuropathy peripheral, hypothyroidism, hypertension, anxiety, hypercalcemia due to hyper parathyroidism and She has history of anemia - In October, patient was found to have a hemoglobin level of 10.8 g/dL, indicating anemia as normal hemoglobin ranges from 12 to 16 g/dL. - Patient reports having hemorrhoids, wh ich may be causing microscopic bleeding and contributing to anemia. - No reported symptoms of constipation d espite hemorrhoids. - Patient denies having any problems sin ce the last visit until now. - No significant changes or new symptoms reported affecting her anemia. - taking all her medications no side eff ects Medications - Atorvastatin 40 mg for hyperlipidemia - Symbicort for asthma - Vitamin D supplement - Flonase - Gabapentin 300 mg TID for neuropathy - Levothyroxine 25 mcg for hypothyroidis m - Lisinopril 5 mg for hypertension - Venlafaxine 75 mg for anxiety - Iron supplements previously taken and currently have an unused bottle at home Problem List - Anemia - Hyperlipidemia - Asthma - Neuropathy peripheral chronic secondar y to alcoholism in the past - Hypothyroidism - Hypertension - Anxiety Diagnostic results - Labs: - Hemoglobin: 10.8 g/dL (slightl y anemic) - LDL cholesterol: 67 mg/dL (considered a good level) - Electrolytes: Normal - Kidney functions: Normal - Blood sugar: Normal - Liver enzymes: Normal - Vitamin B12: Normal - Vitamin D: Normal - Thyroid levels: Normal Patient Instructions - Continue taking current medications, i ncluding iron supplements. - Proceed to the [facility]-door laboratory fo r blood tests without fasting. - Expect potential constipation from iro n supplements; ensure to manage accordingly. - Be in touch for any refills needed. - Return for a recheck of hemoglobin in June. - Pharmacy will contact me for any shruthi watkins prescription details. Review of Systems General: No fever no chills neurological: No headaches no dizziness ear nose throat: No sore throat no hearing difficulty no ear pain cardiovascular: No syncope, no chest pain, no palpitations gastrointestinal: No nausea vomiting or diarrhea endocrine: No polyuria polydipsia no heat intolerance genitourinary: No dysuria skin: No new complaints Physical Exam general: No acute distress HEENT: No acute findings neck: Supple respiratory system: Able to talk in full sentences, no audible wheeze, no stridor, lungs are clear cardiovascular: S1-S2 RRR, no chest pains gastrointestinal: No pain at this time extremities: No new findings, no swelling 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: Alert awake oriented x3 motor intact, gait cautious due to neuropathy skin: Normal turgor [facility], [facility] Medical History Tubular adenoma of colon Osteopenia Hypertension, essential Lipid disorder History of retinal detachment Hoarseness of voice Hyperparathyroidism Goiter Vitamin D deficiency Osteoporosis Personal history of nicotine dependence 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 Brother No problems noted. Sister No problems noted. Son No problems noted. Daughter No problems noted. Social History Housing: Apartment Alcohol intake: former Year quit: 2017 Patient Tobacco Use Status: Former Tobacco user Tobacco use type: Cigarette Years Smoked: 45 (onset 16yo, quit ~2016) e-Cigarette/Vaping Use: Never Used Substance Use Type: Marijuana service: No Current occupational status: disabled Cognitive needs: No Hearing needs: No Vision needs: Yes Questionnaire Thrive Questionnaire Date Thrive assessed: 11/01/24 I am a: Patient What is your living situation today?: I have a steady place to live Within the past 12 months, did the food you bought not last and you didn't have the money to get more?: I choose not to answer this question Within the past 12 months, did you worry whether your food would run out before you got money to buy more?: I choose not to answer this question Do you have trouble paying for medicines?: I choose not to answer this question Do you have trouble getting transportation to medical appointments?: I choose not to answer this question Do you have trouble paying your heating and electricity bill?: No Do you have trouble taking care of your child, family member or friend?: No Do you have trouble with day-to-day activities such as bathing, preparing meals, shopping, managing finances, etc.?: No Are you currently unemployed and looking for a job?: No Are you interested in more education?: No Please select the resources that you would like help with: None Currently or been in a relationship where the following occur: No concerns reported THRIVE Score: 0 AUDIT C Alcohol Use Questionnaire (AUDIT-C) 1. How often do you have a drink containing alcohol?: Monthly or less 2. How many drinks containing alcohol do you have on a typical day when you are drinking?: 1 or 2 3. How often do you have six or more drinks on one occasion?: Never Total Score: 1 Score Reviewed/Action Taken: Yes ZOLTAN-7 AMB Questionnaire ZOLTAN-7 Date ZOLTAN - 7 assessed: 03/06/25 Feeling nervous, anxious, or on edge: 0 = Not at all Not being able to stop or control worryin = Not at all Worrying too much about different things: 0 = Not at all Trouble relaxin = Not at all Being so restless that it is hard to sit still: 0 = Not at all Becoming easily annoyed or irritable: 0 = Not at all Feeling afraid as if something awful might happen: 0 = Not at all Total ZOLTAN-7 score (0-4 normal; 5-9 mild; 10-14 moderate; 15-21 severe): 0 Source: Developed by Drs. Estrada Fish, Kassidy Emery, Bossman Castellanos and colleagues, with an educational jaswant from [employer]. ZOLTAN-7 Assessment Billing ZOLTAN-7 Assessment Tool: ZOLTAN-7 Assessment 74255 Physical exam (Primary Care) Vital Signs: Last Vital Signs Temp 98.2 F 03/06/25 10:01 Pulse 67 03/06/25 10:01 BP 110/60 03/06/25 10:01 Pulse Ox 95 03/06/25 10:01 Oxygen Delivery Method Room Air 03/06/25 10:01 BMI result Body Mass Index 21.6 Tobacco/Smoking Status: Tobacco use Status Tobacco use date assessed 11/01/24 03/06/25 10:02 Patient Tobacco Use Status Former Tobacco user 03/06/25 10:02 Tobacco use type Cigarette 03/06/25 10:02 e-Cigarette/Vaping Use Never Used 03/06/25 10:02 Thrive Assessment: Date of Thrive Assessment Date Thrive assessed 11/01/24 03/06/25 10:02 Currently or been in a relationship where the following occur: No concerns reported Coding Level of Care Code Est Pt Level 4 (26215) Complex EM visit Add On G2211 Diagnoses Hypertension, essential I10 Lipid disorder E78.9 Recurrent major depressive disorder, in full remission F33.42 Active/Remission status: in full remission Impaired fasting blood sugar R73.01 Other specified hypothyroidism E03.8 Vitamin D deficiency E55.9 Other polyneuropathy G62.89 Peripheral neuropathy type: polyneuropathy, other Panlobular emphysema J43.1 COPD type: emphysema Emphysema type: panlobular Cerebellar atrophy G31.9 Non-seasonal allergic rhinitis due to other allergic trigger J30.89 Allergic rhinitis trigger: other Allergic rhinitis seasonality: non-seasonal Moderate persistent asthma without complication J45.40 Asthma persistence: persistent Asthma complication type: uncomplicated Additional Codes ZOLTAN-7 Assessment Billing - ZOLTAN-7 Assessment Tool: ZOLTAN-7 Assessment 51492 ([id number]) Assessment & Plan Assessment & Plan (1) Hypertension, essential: Code(s): I10 - Essential (primary) hypertension Category: Medical (2) Lipid disorder: Code(s): E78.9 - Disorder of lipoprotein metabolism, unspecified Category: Medical (3) Depression, major, recurrent: Code(s): F33.9 - Major depressive disorder, recurrent, unspecified Category: Medical Qualifiers: Active/Remission status: in full remission Qualified Code(s): F33.42 - Major depressive disorder, recurrent, in full remission (4) Impaired fasting blood sugar: Code(s): R73.01 - Impaired fasting glucose Category: Medical (5) Other specified hypothyroidism: Code(s): E03.8 - Other specified hypothyroidism Category: Medical (6) Vitamin D deficiency: Code(s): E55.9 - Vitamin D deficiency, unspecified Category: Medical (7) Peripheral neuropathy: Code(s): G62.9 - Polyneuropathy, unspecified Category: Medical Qualifiers: Peripheral neuropathy type: polyneuropathy, other Qualified Code(s): G62.89 - Other specified polyneuropathies (8) COPD (chronic obstructive pulmonary disease): Comment: Patient has moderately severe obstructive airway disorder. Has been quite stable with her current regimen, but does get short of breath on minimal exertion. Tolerating the use of Symbicort well. Code(s): J44.9 - Chronic obstructive pulmonary disease, unspecified Category: Medical Qualifiers: COPD type: emphysema Emphysema type: panlobular Qualified Code(s): J43.1 - Panlobular emphysema (9) Cerebellar atrophy: Comment: Evaluated by Neurology Code(s): G31.9 - Degenerative disease of nervous system, unspecified Category: Medical (10) Allergic rhinitis: Comment: It is mild with seasonal exacerbations. Code(s): J30.9 - Allergic rhinitis, unspecified Category: Medical Qualifiers: Allergic rhinitis trigger: other Allergic rhinitis seasonality: non- seasonal Qualified Code(s): J30.89 - Other allergic rhinitis (11) Asthma, moderate: Comment: Patient has asthma/COPD overlap syndrome. [place]: See under COPD Code(s): J45.909 - Unspecified asthma, uncomplicated Category: Medical Qualifiers: Asthma persistence: persistent Asthma complication type: uncomplicated Qualified Code(s): J45.40 - Moderate persistent asthma, uncomplicated Plan History - The patient is a 69-year-old female presenting for ongoing care She has a history of hyperlipidemia, asthma, neuropathy peripheral, hypothyroidism, hypertension, anxiety, hypercalcemia due to hyper parathyroidism , mild cerebral atrophy and She has history of anemia - In October, patient was found to have a hemoglobin level of 10.8 g/dL, indicating anemia as normal hemoglobin ranges from 12 to 16 g/dL. - Patient reports having hemorrhoids, which may be causing microscopic bleeding and contributing to anemia. - No reported symptoms of constipation despite hemorrhoids. - Patient denies having any problems since the last visit until now. - No significant changes or new symptoms reported affecting her anemia. - taking all her medications no side effects Medications - Atorvastatin 40 mg for hyperlipidemia - Symbicort for asthma - Vitamin D supplement - Flonase - Gabapentin 300 mg TID for neuropathy - Levothyroxine 25 mcg for hypothyroidism - Lisinopril 5 mg for hypertension - Venlafaxine 75 mg for anxiety - Iron supplements previously taken and currently have an unused bottle at home Problem List - Anemia - Hyperlipidemia - Asthma - Neuropathy peripheral chronic secondary to alcoholism in the past - Hypothyroidism - Hypertension - Anxiety - pre diabetes - history of alcoholism - mild cerebral atrophy Diagnostic results - Labs: - Hemoglobin: 10.8 g/dL (slightly anemic) - LDL cholesterol: 67 mg/dL (considered a good level) - Electrolytes: Normal - Kidney functions: Normal - Blood sugar: Normal - Liver enzymes: Normal - Vitamin B12: Normal - Vitamin D: Normal - Thyroid levels: Normal Patient Instructions - Continue taking current medications, including iron supplements. - Proceed to the next-door laboratory for blood tests without fasting. - Expect potential constipation from iron supplements; ensure to manage accordingly. - Be in touch for any refills needed. - Return for a recheck of hemoglobin in June. - Pharmacy will contact me for any necessary prescription details. Orders: Orders Complete Blood Count Auto Diff Today E03.8 - Other specified hypothyroidism, E 55.9 - Vitamin D deficiency, unspecified, E78.9 - Disorder of lipoprotein metabolism, unspecified, F33.42 - Major depressive disorder, recurrent, in full remission, I10 - Essential (primary) hypertension, R73.01 - Impaired fasting glucose Comprehensive Met. Panel Today E03.8 - Other specified hypothyroidism, E55.9 - Vitamin D deficiency, unspecified, E78.9 - Disorder of lipoprotein metabolism, unspecified, F33.42 - Major depressive disorder, recurrent, in full remission, I10 - Essential (primary) hypertension, R73.01 - Impaired fasting glucose IRON PROFILE Today E03.8 - Other specified hypothyroidism, E55.9 - Vitamin D deficiency, unspecified, E78.9 - Disorder of lipoprotein metabolism, unspecified, F33.42 - Major depressive disorder, recurrent, in full remission, I10 - Essential (primary) hypertension, R73.01 - Impaired fasting glucose Ferritin Today E03.8 - Other specified hypothyroidism, E55.9 - Vitamin D deficiency, unspecified, E78.9 - Disorder of lipoprotein metabolism, unspecified, F33.42 - Major depressive disorder, recurrent, in full remission, I10 - Essential (primary) hypertension, R73.01 - Impaired fasting glucose Vitamin B12 Today E03.8 - Other specified hypothyroidism, E55.9 - Vitamin D deficiency, unspecified, E78.9 - Disorder of lipoprotein metabolism, uns pecified, F33.42 - Major depressive disorder, recurrent, in full remission, I10 - Essential (primary) hypertension, R73.01 - Impaired fasting glucose
--- OUTSIDE RECORDS SUMMARY | 2025-03-06 10:28 | XMS_ITS | Patient Health Record ---
[facility] Address [address] [place] [address] Care Team Providers Care Ingot Header Name Role Phone [facility]imeon DAWKINS, [facility] Provider Alexis Weber Unavailable [phone] Allergies Allergen (clinical drug ingredient) Drug/Non Drug [...] atherosclerosis of arteries of lower limbs (disorder) ([id number] ) Atherosclerosis of kashia artery of both lower extremities, with unspecified presence of clinical manifestation (I70.203) Active confirmed Q7(A), Q8(2B), Q9(1B,2 C) Problem Essential hypertension (85339947) Essential hypertension (I10) Active confirmed Vital Signs Blood pressure diastolic 80 mm Hg 07/10/2024 Height 5ft8in in 07/10/2024 Blood pressure systolic 130 mm Hg 07/10/2024 Weight 145 lbs 07/10/2024 BMI 22.04 kg/m2 07/10/2024 Procedures Procedure Date Ordered Date Performed Result Body Sit e 72705-RZGDWCK NAIL, 1-5 04/06/2024 N/A 51713-ZXXJ SKIN LESIONS, OVER 4 04/06/2024 N/A W7858-[id number] DYSTROPHIC NAILS ANY # 04/06/2024 N/A 71959-[id number] NAIL, 1-5 07/10/2024 N/A 49493-TFQF SKIN LESIONS, OVER 4 07/10/2024 N/A A4802-NUMHYXDR DYSTROPHIC NAILS ANY # 07/10/2024 N/A Encounters Encounter Location Date Provider [facility] [address] [place] [phone] 04/06/2024 Alexis Ureña Atherosclerosis of kashia artery of both lower extremities, with unspecified presence of clinical manifestation I70.203 ; Tinea unguium B35.1 ; Pain in right toe(s) M79.674 ; Pain in left toe(s) M79.675 ; Pain in right foot M79.671 ; Pain in right ankle and joints of right foot M25.571 ; Bursitis of right foot M77.51 and Tailor's bunion of right foot M21.621 [facility] [place] [address] [place] [phone] 07/10/2024 Alexis Ureña Atherosclerosis of kashia artery of both lower extremities, with unspecified presence of clinical manifestation I70.203 ; Tinea unguium B35.1 ; Pain in right toe(s) M79.674 and Pain in left toe(s) M79.675 [facility] [place] [address] [place] [phone] 10/02/2024 Alexis Ureña Assessments Encounter Date Diagnosis (ICD Code) Assessment Notes Treatment Notes Treatment Clinical Notes Section Notes 04/06/2024 Tinea unguium (ICD-10 - B35.1) 04/06/2024 Atherosclerosis of kashia artery of both lower extremities, with unspecified presence of clinical manifestation (ICD-10 - I70.203) 07/10/2024 Tinea unguium (ICD-10 - B35.1) 07/10/2024 Atherosclerosis of kashia artery of both lower extremities, with unspecified [...] Treatment Pending Test Test Name Order Date [id number] NAIL, 1-04/06/2024 [id number] NAIL, 1-07/10/2024 37876-UORR SKIN LESIONS, OVER 4 04/06/20 24 31885-CILZ SKIN LESIONS, OVER 4 07/10/20 24 G5785-JJVUMEVQ DYSTROPHIC NAILS ANY # N3504-NAGNYYIB DYSTROPHIC NAILS ANY # Insurance Providers Payer Name Payer Address Payer Phone Subscriber Number Group Number Insured Name Patient Relationship to Insured Coverage Start Date Coverage End Date [facility] [address] [address] [place] [phone] [id number] Krystin Gotti Self - patient is the insured Medical (General) History Medical History History ICD Code Anxiety asthma Back,Hip,and Knee pain Broken bones CAD (Cholesterol) Cancer Cataracts Depression Macular degeneration nerve disorder Numbness Osteoporosis thyroid Joint implants/screws Hypertension Surgical History Surgery Date(Month/Year) hip replacement
== END 2025-03-06 10:18 | disposition home or self-care (01) ==
LOC: HO.HMCC 09:58
PROVIDERS: PCP Internal Medicine; Visit Provider Internal Medicine
DX: I10 Essential (primary) hypertension (principal); E78.9 Disorder of lipoprotein metabolism, unspecified; F33.42 Major depressive disorder, recurrent, in full remission; R73.01 Impaired fasting glucose; E03.8 Other specified hypothyroidism; E55.9 Vitamin D deficiency, unspecified; G62.89 Other specified polyneuropathies; G31.9 Degenerative disease of nervous system, unspecified; J30.89 Other allergic rhinitis; J45.40 Moderate persistent asthma, uncomplicated

== ENCOUNTER 2025-03-12 10:15 | Outpatient (AMB) | payer MEDICARE, SELFPAY ==
[2025-03-12 10:36] VITALS: BP 102/52; PULSE 59; O2SAT 95; BMI 21.3
--- NOTE | 2025-03-12 10:36 | MHC.OFFVIS ---
Vital Signs 03/12/25 10:36 Height 5 ft 8 in Weight 139 lb 15.896 oz BMI 21.3 BP 102/52 L Blood Pressure Location Lt brachial Position Sitting Pulse 59 Pulse Source Pulse Oximeter Pulse Oximetry (%) 95 Oxygen Delivery Method Room Air Intake Visit Reasons: Cough Intake Note: pt is here for follow up and states she has an issue with the inhaler that she will explain, this occurs when using and right before. [employer] Required: No Allergies pollen extracts Allergy (Mild, Verified 03/12/25 10:56) Sneezing ENVIROMENTAL Allergy (Unknown, Uncoded 03/12/25 10:56) WHEEZING,COUGH Medication List - Last Reconciled 03/12/25 by Richardson Floey MD albuterol sulfate 90 mcg/actuation 2 puffs PO Q4-6H PRN ascorbic acid (vitamin C) mg PO aspirin (Adult Low Dose Aspirin) 81 mg PO .every other day 90 days atorvastatin 40 mg PO DAILY 90 days budesonide-formoterol 160-4.5 mcg/actuation (Symbicort) 2 puffs inhalation BID 90 days cholecalciferol (vitamin D3) 25 mcg PO DAILY fluticasone propionate 50 mcg/actuation (Flonase Allergy Relief) 1 spray intranasal BID gabapentin 300 mg PO TID 90 days levothyroxine 25 mcg PO DAILY lisinopril 5 mg PO DAILY 90 days lrekbrqo-fwy-jnjaz acid-lutein 400-250 mcg (Centrum Silver) 2 tabs PO DAILY omega 5-tpv-elq-fish oil 1,200 (144-216) mg (Fish Oil) caps PO venlafaxine ER 75 mg PO DAILY 90 days Do you need a note to return to daycare/school/sports/work: No HPI HPI Cough: Details: 69 years old very pleasant female is here for follow-up after 4 months. As far as COPD is concerned she is doing well and remains stable. However she has been using albuterol a little bit more often than she should. And claims that she has some difficulty in inhaling completely. She has no significant dysphonia. Still has some raspy feeling off and on, which actually clears up by use of albuterol. Nasal congestion is minimal. 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 Brother No problems noted. Sister No problems noted. Son No problems noted. Daughter No problems noted. Social History Housing: Apartment Alcohol intake: former Year quit: 2017 Patient Tobacco Use Status: Former Tobacco user Tobacco use type: Cigarette Years Smoked: 45 (onset 16yo, quit ~2017) e-Cigarette/Vaping Use: Never Used Substance Use Type: Marijuana service: No Current occupational status: disabled Cognitive needs: No Hearing needs: No Vision needs: Yes Review of Systems Const All systems reviewed & are unremarkable except as noted in HPI and below ENT Reports nasal congestion (OFF AND ON ) Card Denies chest pain, Denies leg edema and Reports dyspnea on exertion (MILD ) Resp Reports cough (OCCASIONAL ) and Reports dyspnea on exertion (MILD ) GI Reports no additional complaints Musc Reports no additional complaints Neuro Reports no additional complaints Psych Reports no additional complaints Endo Reports no additional complaints Physical Exam Vital Signs: Last Vital Signs Pulse 59 03/12/25 10:36 BP 102/52 L 03/12/25 10:36 Pulse Ox 95 03/12/25 10:36 Oxygen Delivery Method Room Air 03/12/25 10:36 BMI result Body Mass Index 21.3 Const General: healthy appearing, comfortable, no acute distress, alert and awake Orientation/consciousness: patient oriented x3 HEENT Head: Yes normal to inspection General nose exam: No nasal polyps present and No nasal discharge present Face and sinus: Yes sinuses nontender Mouth: oropharynx normal Throat: Yes posterior oropharynx normal Eyes General: appearance normal, both eyes and all related structures Neck Neck: Yes normal visual inspection, Yes no lymphadenopathy, Yes trachea midline and Yes no JVD Thyroid: Thyroid normal Chest Chest palpation & inspection: normal inspection of the chest, normal palpation of entire chest wall and no tenderness Resp Other: Percussion note is resonant. Breath sounds are distant with prolonged expiratory phase. No wheezes rhonchi or crepitations are heard. Effort & Inspection: prolonged expiratory phase Auscultation: no crackles, no wheezes and diminished lung sounds Cardio Palpation: normal PMI Rate: regular rate Rhythm: regular rhythm Heart sounds: no gallops and no murmurs Peripheral pulses: Peripheral pulses 2+ throughout GI Palpation (GI): Soft to palpation, nontender, No hepatosplenomegaly present and no masses Auscultation: normal bowel sounds Back/Spine/Pelvis Thoracic/Lumbar Spine: thoracic and lumbar spine normal to inspection Skin General skin exam: no rashes or lesions noted Neuro General: patient oriented x3 and no focal motor deficits Cranial nerves: Yes CN's II-XII intact bilaterally Extrem General: Yes normal to inspection, Yes no clubbing, cyanosis or edema, Yes no calf tenderness and No venous stasis dermatitis Psych Appearance: grossly normal and well kempt Speech and movement: Normal speech and movement present Assessment & Plan Assessment & Plan (1) COPD (chronic obstructive pulmonary disease): Comment: Patient has moderately severe obstructive airway disorder. Has been quite stable with her current regimen, but does get short of breath on minimal exertion. Tolerating the use of Symbicort well. Describe some difficulty with using the rescue inhaler. Using at least 3 to 4 times a day. Code(s): J44.9 - Chronic obstructive pulmonary disease, unspecified Category: Medical Qualifiers: COPD type: emphysema Emphysema type: panlobular Qualified Code(s): J43.1 - Panlobular emphysema Plan: Advised to continue using Symbicort 160-4.52 puffs b.i.d. and rinse the throat very thoroughly after using it. Albuterol HFA 2 puffs Q 4-6 hours only p.r.n. and avoid any excessive use . For proper use of the albuterol I think she will benefit from use of his spacer , which is prescribed. (2) Personal history of nicotine dependence: Comment: (onset 16yo, 1ppd x 45yrs, 45pyh, quit ~2017) Code(s): Z87.891 - Personal history of nicotine dependence Category: Medical Plan: Commended for having quit smoking and not going back to it (3) Allergic rhinitis: Comment: It is mild with seasonal exacerbations. Code(s): J30.9 - Allergic rhinitis, unspecified Category: Medical Qualifiers: Allergic rhinitis trigger: other Allergic rhinitis seasonality: non-seasonal Qualified Code(s): J30.89 - Other allergic rhinitis Plan: Use Flonase-51 or 2 sprays b.i.d. in each nostril, as needed. Medications: New inhalational spacing device As directed 1 ea 3RF Coding Level of Care Code Est Pt Level 3 (53964) Diagnoses Panlobular emphysema J43.1 COPD type: emphysema Emphysema type: panlobular Personal history of nicotine dependence Z87.891 Non-seasonal allergic rhinitis due to other allergic trigger J30.89 Allergic rhinitis trigger: other Allergic rhinitis seasonality: non-seasonal
--- OUTSIDE RECORDS SUMMARY | 2025-03-12 10:54 | XMS_ITS | Patient Health Record ---
Author Organization [facility] Address [address] [place] [address] Care Team Providers Care Forgesmith Name Role Phone Simeon DAWKINS, [facility] Primary [facility] Provider Alexis Weber Unavailable [phone] Allergies Allergen (clinical drug ingredient) Drug/Non Drug [...] atherosclerosis of arteries of lower limbs (disorder) (00494418251918857 ) Atherosclerosis of [place] artery of both lower extremities, with unspecified presence of clinical manifestation (I70.203) Active confirmed Q7(A), Q8(2B), Q9(1B,2 C) Problem Essential hypertension (11664993) Essential hypertension (I10) Active confirmed Vital Signs Blood pressure diastolic 80 mm Hg 07/10/2024 Height 5ft8in in 07/10/2024 Blood pressure systolic 130 mm Hg 07/10/2024 Weight 145 lbs 07/10/2024 BMI 22.04 kg/m2 07/10/2024 Procedures Procedure Date Ordered Date Performed Result Body Sit e 79073-PMQKCSV NAIL, 1-5 04/06/2024 N/A 44750-DWIM SKIN LESIONS, OVER 4 04/06/2024 N/A P7692-CDBPKKRT DYSTROPHIC NAILS ANY # 04/06/2024 N/A 66769-XCZEZNO NAIL, 1-5 07/10/2024 N/A 71397-EDKP SKIN LESIONS, OVER 4 07/10/2024 N/A P0674-ZITXKNAE DYSTROPHIC NAILS ANY # 07/10/2024 N/A Encounters Encounter Location Date Provider Diagnosis [facility] [address] [place] [id number] 04/06/2024 Alexis Ureña Atherosclerosis of [place] artery of both lower extremities, with unspecified presence of clinical manifestation I70.203 ; Tinea unguium B35.1 ; Pain in right toe(s) M79.674 ; Pain in left toe(s) M79.675 ; Pain in right foot M79.671 ; Pain in right ankle and joints of right foot M25.571 ; Bursitis of right foot M77.51 and Tailor's bunion of right foot M21.621 [facility] [place] [address] [place] [phone] 07/10/2024 Alexis Ureña Atherosclerosis of [place] artery of both lower extremities, with unspecified presence of clinical manifestation I70.203 ; Tinea unguium B35.1 ; Pain in right toe(s) M79.674 and Pain in left toe(s) M79.675 [facility] [place] [address] [place] [phone] 10/02/2024 Alexis Ureña Assessments Encounter Date Diagnosis (ICD Code) Assessment Notes Treatment Notes Treatment Clinical Notes Section Notes 04/06/2024 Tinea unguium (ICD-10 - B35.1) 04/06/2024 Atherosclerosis of [place] artery of both lower extremities, with unspecified presence of clinical manifestation (ICD-10 - I70.203) 07/10/2024 Tinea unguium (ICD-10 - B35.1) 07/10/2024 Atherosclerosis of [place] artery of both lower extremities, with unspecified [...] Treatment Pending Test Test Name Order Date [id number] NAIL, 1-04/06/2024 69882-FGRMNMW NAIL, 1-07/10/2024 74123-ACEZ SKIN LESIONS, OVER 4 04/06/20 24 74926-DVJG SKIN LESIONS, OVER 4 07/10/20 24 G8534-RLQTYWUM DYSTROPHIC NAILS ANY # E0168-OFUMCOUC DYSTROPHIC NAILS ANY # Insurance Providers Payer Name Payer Address Payer Phone Subscriber Number Group Number Insured Name Patient Relationship to Insured Coverage Start Date Coverage End Date [id number] [address] [address] [place] [phone] [id number] Krystin Gotti Self - patient is the insured Medical (General) History Medical History History ICD Code Anxiety asthma Back,Hip,and Knee pain Broken bones CAD (Cholesterol) Cancer Cataracts Depression Macular degeneration nerve disorder Numbness Osteoporosis thyroid Joint implants/screws Hypertension Surgical History Surgery Date(Month/Year) hip replacement
== END 2025-03-12 10:56 | disposition home or self-care (01) ==
LOC: HO.HPS 10:16
PROVIDERS: PCP Internal Medicine; Visit Provider Internal Medicine
DX: J43.1 Panlobular emphysema (principal); Z87.891 Personal history of nicotine dependence; J30.89 Other allergic rhinitis
CPT/HCPCS: 99213

== ENCOUNTER → 2025-03-12 10:15 | Outpatient (BNVA) | payer MEDICARE, SELFPAY | PROVIDERS: PCP Internal Medicine; Visit Provider Internal Medicine | DX: J43.1 Panlobular emphysema (principal); J30.89 Other allergic rhinitis; Z87.891 Personal history of nicotine dependence | CPT/HCPCS: 99212 ==

== ENCOUNTER 2025-05-30 11:47 | Outpatient (REF) | payer MEDICARE, SELFPAY ==
--- OUTSIDE RECORDS SUMMARY | 2024-10-02 06:15 | XMS_ITS ---
Author Organization [facility] Address [address] [place] [address] Care Team Providers Care Document Review Attorney Name Role Phone Simeon DAWKINS, Teressa Primary Care Provider Unavailabl Alexis Saunders Unavailable [phone] Encounters Encounter Location Date [facility] [address] [address] 10/02/2024 Alexis Ureña Plan Of Treatment No Information Progress Notes * Krystin GOTTI EDOB: [birth year] (69 yo F)Acc No.[id number]:10/02/2024 Progress Note Patient: Krystin HOLMAN Provider: Loi Ureña DPM :1955 A ge:69 Y S ex:Female Date:10/02/2024 Address:[address] [place] [address], [id number] Pcp:Teressa Hendrix MD Subjective: * Chief Complaints: [...] Ureña DPM Date: 0 10/02/2024 Generated for Printi diana/Fadayanna/eTransmitting on: 1 03:08 PM EDT
--- OUTSIDE RECORDS SUMMARY | 2025-05-30 15:08 | XMS_ITS | Patient Health Record ---
Author Organization [facility] Address [address] [place] [address] Care Team Providers Care Pv Installer Tech Name Role Phone Simeon DAWKINS, [facility] Primary Care Provider Alexis Weber Unavailable [phone] Allergies Allergen (clinical drug ingredient) Drug/Non Drug [...] atherosclerosis of arteries of lower limbs (disorder) ([id number] ) Atherosclerosis of [place] artery of both lower extremities, with unspecified presence of clinical manifestation (I70.203) Active confirmed Q7(A), Q8(2B), Q9(1B,2 C) Problem Essential hypertension (42411586) Essential hypertension (I10) Active confirmed Vital Signs Blood pressure diastolic 80 mm Hg 07/10/2024 Height 5ft8in in 07/10/2024 Blood pressure systolic 130 mm Hg 07/10/2024 Weight 145 lbs 07/10/2024 BMI 22.04 kg/m2 07/10/2024 Procedures Procedure Date Ordered Date Performed Result Body Sit e 84705-UEEPCMW NAIL, 1-5 07/10/2024 N/A 23247-INLH SKIN LESIONS, OVER 4 07/10/2024 N/A W2452-IISIGSPY DYSTROPHIC NAILS ANY # 07/10/2024 N/A Encounters Encounter Location Date Provider [facility] [address] 07/10/2024 Alexis Ureña Atherosclerosis of [place] artery of both lower extremities, with unspecified presence of clinical manifestation I70.203 ; Tinea unguium B35.1 ; Pain in right toe(s) M79.674 and Pain in left toe(s) M79.675 [facility] [address] 10/02/2024 Alexis Ureña Assessments Encounter Date Diagnosis (ICD Code) Assessment Notes Treatment Notes Treatment Clinical Notes Section Notes 07/10/2024 Tinea unguium (ICD-10 - B35.1) 07/10/2024 Atherosclerosis of [place] artery of both lower extremities, with unspecified presence of clinical manifestation (ICD-10 - I70.203) Q7(A), Q8(2B), Q9(1B,2C) 07/10/2024 Pain in right toe(s) (ICD-10 - M79.674) 07/10/2024 Pain in left toe(s) (ICD-10 - M79.675) Plan Of Treatment Pending Test Test Name Order Date [id number] NAIL, 1-04/06/2024 46826-XTNSMFO NAIL, 1-07/10/2024 03398-YGHR SKIN LESIONS, OVER 4 04/06/20 24 30807-SFNB SKIN LESIONS, OVER 4 07/10/20 24 E7826-PONYABGW DYSTROPHIC NAILS ANY # U6198-KKXTCHDA DYSTROPHIC NAILS ANY # Insurance Providers Payer Name Payer Address Payer Phone Subscriber Number Group Number Insured Name Patient Relationship to Insured Coverage Start Date Coverage End Date [id number] [address] [address] [place] [phone] [id number] Krystin Gotti Self - patient is the insured Medical (General) History Medical History History ICD Code Anxiety asthma Back,Hip,and Knee pain Broken bones CAD (Cholesterol) Cancer Cataracts Depression Macular degeneration nerve disorder Numbness Osteoporosis thyroid Joint implants/screws Hypertension Surgical History Surgery Date(Month/Year) hip replacement
== END 2025-05-30 11:48 | disposition home or self-care (01) ==
LOC: HO.MAMMO 11:47
PROVIDERS: PCP Internal Medicine; Visit Provider Internal Medicine
DX: Z12.31 Encounter for screening mammogram for malignant neoplasm of breast (principal)
CPT/HCPCS: 77063; 77067

== ENCOUNTER → 2025-05-30 12:30 | Outpatient (BNV) | payer MEDICARE, SELFPAY | PROVIDERS: PCP Internal Medicine; Visit Provider Radiology Body Imaging | DX: Z12.31 Encounter for screening mammogram for malignant neoplasm of breast (principal) | CPT/HCPCS: 77063; 77067 ==

== ENCOUNTER 2025-06-06 10:47 | Outpatient (AMB) | payer MEDICARE, SELFPAY ==
--- OUTSIDE RECORDS SUMMARY | 2024-10-02 05:15 | XMS_ITS ---
[facility] Address [address] [place] [address] Care Team Providers [facility] Sales Name Role Phone Simeon DAWKINS, Teressa Primary Care Provider Unavailabl Alexis Saunders Unavailable [phone] Encounters Encounter Location Date [facility] [address] [address] 10/02/2024 Alexis Ureña Plan Of Treatment No Information Progress Notes * Krystin GOTTI EDOB: [birth year] (69 yo F)Acc No.[id number]:10/02/2024 Progress Note Patient: Krystin HOLMAN Provider: Loi Ureña DPM :1955 A ge:69 Y S ex:Female Date:10/02/2024 Address:[address] [place] [address], [place] Pcp:Teressa Hendrix MD Subjective: * Chief Complaints: * * Medical History: Objective: * Vitals: Assessment: Plan: * Treatment: * Images: * The named appointment provid er may or may not be the originator of this progress note, and it is not deemed complete until electronically signed by the appointment provider. Sign off status: Pending * Provider: Loi Ureña DPM Date: 0 10/02/2024 Generated for Aaroni diana/Shana/eTransmitting on: 08/06/2024 12:41 PM EST
[2025-06-06 10:50] VITALS: BP 110/60; PULSE 63; O2SAT 93; BMI 22.3
--- NOTE | 2025-06-06 10:50 | A.OFFPC_ITS ---
Vital Signs 06/06/25 10:50 Height 5 ft 8 in Weight 147 lb BMI 22.3 BP 110/60 Blood Pressure Location Rt brachial Position Sitting Pulse 63 Pulse Source Pulse Oximeter Pulse Oximetry (%) 93 Intake Visit Reasons: 3m follow up Allergies pollen extracts Allergy (Mild, Verified 06/06/25 10:51) Sneezing ENVIROMENTAL Allergy (Unknown, Uncoded 03/12/25 10:56) WHEEZING,COUGH Medication List - Last Reconciled 06/06/25 by Teressa Hendrix MD albuterol sulfate 90 mcg/actuation 2 puffs PO Q4-6H PRN ascorbic acid (vitamin C) mg PO aspirin (Adult Low Dose Aspirin) 81 mg PO .every other day 90 days atorvastatin 40 mg PO DAILY 90 days budesonide-formoterol 160-4.5 mcg/actuation (Symbicort) 2 puffs inhalation BID 90 days cholecalciferol (vitamin D3) 25 mcg PO DAILY fluticasone propionate 50 mcg/actuation (Flonase Allergy Relief) 1 spray intranasal BID gabapentin 300 mg PO TID 90 days inhalational spacing device As directed levothyroxine 25 mcg PO DAILY lisinopril 5 mg PO DAILY 90 days csywmemh-iee-mydyj acid-lutein 400-250 mcg (Centrum Silver) 2 tabs PO DAILY omega 1-bjn-bbw-fish oil 1,200 (144-216) mg (Fish Oil) caps PO venlafaxine ER 75 mg PO DAILY 90 days Tobacco use date assessed: 11/01/24 Fall risk assessment: No Falls in past year Last assessed Fall Risk: 06/06/25 Dental Screening Dental Screen Date: 11/01/24 HPI 3m follow up HPI Details History The patient is a 69-year-old female presenting for a follow-up visit to discuss hair thinning and inquire about the RSV vaccination. Alopecia: - The patient reports that her hair has been thinning significantly and wonders if it could be a side effect of her medications. - It was noted that while some medicatio ns can cause hair loss, she is not currently on any known to cause it, but vitamin deficiency or postmenopausal hormonal changes could be a cause. Chronic Obstructive Pulmonary Disease: - The patient has a history of COPD and asthma, and has quit smoking. - She continues to experience a cough an d episodes of dyspnea, which can trigger anxiety. - She practices slow breathing exercises , which seem to help her breathing. - Her resting pulse oximetry is 93%, and she is scheduled to see her tank cooper, Dr. Foley, in August. Anemia: - Labs from March showed a slightly low but stable hemoglobin. - Her ferritin level was 46, and she enrique es a multivitamin with iron. . Medical History: - Chronic Obstructive Pulmonary Disease - Asthma - Hypothyroidism - Hyperlipidemia - Hypertension - Peripheral neuropathy - Postmenopause - Anemia, stable - History of elevated vitamin B12 level while taking supplements Medications: - Multivitamin with iron - Aspirin - Atorvastatin - Symbicort - Vitamin D - Nasal spray - Gabapentin for peripheral neuropathy - Levothyroxine 25 mcg - Lisinopril - Venlafaxine 75 mg Social History: - The patient has quit smoking. - She utilizes transportation services f or medical appointments that are not within walking distance. Problem List - Alopecia chronic and getting worse - Chronic Obstructive Pulmonary Disease (COPD) - Asthma - Peripheral neuropathy - Anemia - Anxiety - Hypothyroidism - Hypertension - Tobacco use (quit) - Preventative care: Follow-up with pulm onologist - Preventative care: Follow-up with opht halmologist - Preventative care: Vaccination (RSV) Diagnostic results - Labs from March: Hemoglobin was sligh tly low but stable, kidney functions were good, ferritin was 46, and liver enzymes were good. - A vitamin B12 level was very high at t hat time, and the patient reported taking a supplement which she has since stopped. - Vitals: Blood pressure 110/60 mmHg and pulse oximetry 93% at rest. [place] of Care - Patient sees a tank cooper, Dr. Kenyon reece, with an upcoming appointment in August. - Patient has an established ophthalmolo gist whom she needs to schedule an appointment with. Plan - Recommended the patient get the RSV va ccine from a pharmacy, in addition to her flu and COVID shots, due to her history of COPD and asthma. - Prescribed minoxidil 2.5 mg tablets da joy for three months to treat hair thinning. - Patient was counseled that minoxidil m ay cause hair growth on other parts of the body, and she agreed to a trial period. - Advised to continue her multivitamin w ith iron but to discontinue separate iron and vitamin B12 supplements. - Advised to discuss her dyspnea on exer tion with her tank cooper, Dr. Foley, at her upcoming August appointment to explore the potential need for supplemental oxygen. - Urged patient to schedule an appointme nt with her counsellors to evaluate her reported visual changes. - The upcoming physical exam scheduled or July will be rescheduled for September. 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: Alert awake oriented x3 motor intact skin: Normal turgor PFSH Medical History Tubular adenoma of colon Osteopenia Hypertension, essential Lipid disorder History of retinal detachment Hoarseness of voice Hyperparathyroidism Goiter Vitamin D deficiency Osteoporosis Personal history of nicotine dependence 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 Brother No problems noted. Sister No problems noted. Son No problems noted. Daughter No problems noted. Social History Housing: Apartment Alcohol intake: former Year quit: 2017 Patient Tobacco Use Status: Former Tobacco user Tobacco use type: Cigarette Years Smoked: 45 (onset 16yo, quit ~2017) e-Cigarette/Vaping Use: Never Used Substance Use Type: Marijuana service: No Current occupational status: disabled Cognitive needs: No Hearing needs: No Vision needs: Yes Questionnaire Thrive Questionnaire Date Thrive assessed: 11/01/24 I am a: Patient What is your living situation today?: I have a steady place to live Within the past 12 months, did the food you bought not last and you didn't have the money to get more?: I choose not to answer this question Within the past 12 months, did you worry whether your food would run out before you got money to buy more?: I choose not to answer this question Do you have trouble paying for medicines?: I choose not to answer this question Do you have trouble getting transportation to medical appointments?: I choose not to answer this question Do you have trouble paying your heating and electricity bill?: No Do you have trouble taking care of your child, family member or friend?: No Do you have trouble with day-to-day activities such as bathing, preparing meals, shopping, managing finances, etc.?: No Are you currently unemployed and looking for a job?: No Are you interested in more education?: No Please select the resources that you would like help with: None Currently or been in a relationship where the following occur: No concerns reported THRIVE Score: 0 ZOLTAN-7 AMB Questionnaire ZOLTAN-7 Date ZOLTAN - 7 assessed: 03/06/25 Source: Developed by Drs. Estarda Fish, Kassidy Emery, Bossman Castellanos and colleagues, with an educational jaswant from [employer]. Physical exam (Primary Care) Vital Signs: Last Vital Signs Pulse 63 06/06/25 10:50 BP 110/60 06/06/25 10:50 Pulse Ox 93 06/06/25 10:50 BMI result Body Mass Index 22.3 Tobacco/Smoking Status: Tobacco use Status Tobacco use date assessed 11/01/24 06/06/25 10:51 Patient Tobacco Use Status Former Tobacco user 06/06/25 10:51 Tobacco use type Cigarette 06/06/25 10:51 e-Cigarette/Vaping Use Never Used 06/06/25 10:51 Thrive Assessment: Date of Thrive Assessment Date Thrive assessed 11/01/24 06/06/25 10:51 Currently or been in a relationship where the following occur: No concerns reported Coding Level of Care Code Est Pt Level 4 (48806) Complex EM visit Add On G2211 Diagnoses Hypertension, essential I10 Lipid disorder E78.9 Recurrent major depressive disorder, in full remission F33.42 Active/Remission status: in full remission Impaired fasting blood sugar R73.01 Other specified hypothyroidism E03.8 Vitamin D deficiency E55.9 Other polyneuropathy G62.89 Peripheral neuropathy type: polyneuropathy, other Panlobular emphysema J43.1 COPD type: emphysema Emphysema type: panlobular Cerebellar atrophy G31.9 Non-seasonal allergic rhinitis due to other allergic trigger J30.89 Allergic rhinitis trigger: other Allergic rhinitis seasonality: non-seasonal Moderate persistent asthma without complication J45.40 Asthma persistence: persistent Asthma complication type: uncomplicated Assessment & Plan Assessment & Plan (1) Hypertension, essential: Code(s): I10 - Essential (primary) hypertension Category: Medical (2) Lipid disorder: Code(s): E78.9 - Disorder of lipoprotein metabolism, unspecified Category: Medical (3) Depression, major, recurrent: Code(s): F33.9 - Major depressive disorder, recurrent, unspecified Category: Medical Qualifiers: Active/Remission status: in full remission Qualified Code(s): F33.42 - Major depressive disorder, recurrent, in full remission (4) Impaired fasting blood sugar: Code(s): R73.01 - Impaired fasting glucose Category: Medical (5) Other specified hypothyroidism: Code(s): E03.8 - Other specified hypothyroidism Category: Medical (6) Vitamin D deficiency: Code(s): E55.9 - Vitamin D deficiency, unspecified Category: Medical (7) Peripheral neuropathy: Code(s): G62.9 - Polyneuropathy, unspecified Category: Medical Qualifiers: Peripheral neuropathy type: polyneuropathy, other Qualified Code(s): G62.89 - Other specified polyneuropathies (8) COPD (chronic obstructive pulmonary disease): Comment: Patient has moderately severe obstructive airway disorder. Has been quite stable with her current regimen, but does get short of breath on minimal exertion. Tolerating the use of Symbicort well. Describe some difficulty with using the rescue inhaler. Using at least 3 to 4 times a day. Code(s): J44.9 - Chronic obstructive pulmonary disease, unspecified Category: Medical Qualifiers: COPD type: emphysema Emphysema type: panlobular Qualified Code(s): J43.1 - Panlobular emphysema (9) Cerebellar atrophy: Comment: Evaluated by Neurology Code(s): G31.9 - Degenerative disease of nervous system, unspecified Category: Medical (10) Allergic rhinitis: Comment: It is mild with seasonal exacerbations. Code(s): J30.9 - Allergic rhinitis, unspecified Category: Medical Qualifiers: Allergic rhinitis trigger: other Allergic rhinitis seasonality: non- seasonal Qualified Code(s): J30.89 - Other allergic rhinitis (11) Asthma, moderate: Comment: Patient has asthma/COPD overlap syndrome. [place]: See under COPD Code(s): J45.909 - Unspecified asthma, uncomplicated Category: Medical Qualifiers: Asthma persistence: persistent Asthma complication type: uncomplicated Qualified Code(s): J45.40 - Moderate persistent asthma, uncomplicated Plan Alopecia: - The patient reports that her hair has been thinning significantly and wonders if it could be a side effect of her medications. - It was noted that while some medications can cause hair loss, she is not currently on any known to cause it, but vitamin deficiency or postmenopausal hormonal changes could be a cause. Chronic Obstructive Pulmonary Disease: - The patient has a history of COPD and asthma, and has quit smoking. - She continues to experience a cough and episodes of dyspnea, which can trigger anxiety. - She practices slow breathing exercises, which seem to help her breathing. - Her resting pulse oximetry is 93%, and she is scheduled to see her tank cooper, Dr. Foley, in August. Anemia: - Labs from March showed a slightly low but stable hemoglobin. - Her ferritin level was 46, and she takes a multivitamin with iron. . Problem List - Alopecia chronic and getting worse - Chronic Obstructive Pulmonary Disease (COPD) - Asthma - Peripheral neuropathy - Anemia - Anxiety - Hypothyroidism - Hypertension - MCI - asthma - Tobacco use (quit) - Preventative care: Follow-up with tank cooper - Preventative care: Follow-up with counsellors - Preventative care: Vaccination (RSV) Diagnostic results - Labs from March: Hemoglobin was slightly low but stable, kidney functions were good, ferritin was 46, and liver enzymes were good. - A vitamin B12 level was very high at that time, and the patient reported taking a supplement which she has since stopped. - Vitals: Blood pressure 110/60 mmHg and pulse oximetry 93% at rest. [place] of Care - Patient sees a tank cooper, Dr. Foley, with an upcoming appointment in [facility]. - Patient has an established counsellors whom she needs to schedule an appointment with. Plan - Recommended the patient get the RSV vaccine from a pharmacy, in addition to her flu and COVID shots, due to her history of COPD and asthma. - Prescribed minoxidil 2.5 mg tablets daily for three months to treat hair thinning. - Patient was counseled that minoxidil may cause hair growth on other parts of the body, and she agreed to a trial period. - Advised to continue her multivitamin with iron but to discontinue separate iron and vitamin B12 supplements. - Advised to discuss her dyspnea on exertion with her tank cooper, Dr. Foley, at her upcoming August appointment to explore the potential need for supplemental oxygen. - Urged patient to schedule an appointment with her counsellors to evaluate her reported visual changes. - The upcoming physical exam scheduled for July will be rescheduled for September. Medications: New minoxidil 2.5 mg PO DAILY 90 tabs 0RF
--- OUTSIDE RECORDS SUMMARY | 2025-06-06 12:41 | XMS_ITS | Patient Health Record ---
[facility] Address [address] [place] [address] Care Team Providers Care Supervisor Denture Department Name Role Phone Simeon DAWKINS, [facility] Primary [facility] Provider Alexis Weber Unavailable [phone] Allergies Allergen (clinical drug ingredient) Drug/Non Drug [...] atherosclerosis of arteries of lower limbs (disorder) ([id number] ) Atherosclerosis of [place] artery of both lower extremities, with unspecified presence of clinical manifestation (I70.203) Active confirmed Q7(A), Q8(2B), Q9(1B,2 C) Problem Essential hypertension (80986192) Essential hypertension (I10) Active confirmed Vital Signs Blood pressure diastolic 80 mm Hg 07/10/2024 Height 5ft8in in 07/10/2024 Blood pressure systolic 130 mm Hg 07/10/2024 Weight 145 lbs 07/10/2024 BMI 22.04 kg/m2 07/10/2024 Procedures Procedure Date Ordered Date Performed Result Body Sit e 92445-[id number] NAIL, 1-5 07/10/2024 N/A [id number] SKIN LESIONS, OVER 4 07/10/2024 N/A [id number] DYSTROPHIC NAILS ANY # 07/10/2024 N/A Encounters Encounter Location Date [facility] [address] 07/10/2024 Alexis Ureña Atherosclerosis of [place] artery of both lower extremities, with unspecified presence of clinical manifestation I70.203 ; Tinea unguium B35.1 ; Pain in right toe(s) M79.674 and Pain in left toe(s) M79.[address] [facility] [address] 10/02/2024 Alexis Ureña Assessments Encounter Date Diagnosis (ICD Code) Assessment Notes Treatment Notes Treatment Clinical Notes Section Notes 07/10/2024 Tinea unguium (ICD-10 - B35.1) 07/10/2024 Atherosclerosis of [place] artery of both lower extremities, with unspecified presence of clinical manifestation (ICD-10 - I70.203) Q7(A), Q8(2B), Q9(1B,2C) 07/10/2024 Pain in right toe(s) (ICD-10 - M79.674) 07/10/2024 Pain in left toe(s) (ICD-10 - M79.675) Plan Of Treatment Pending Test Test Name Order Date [id number] NAIL, 1-04/06/2024 [id number] NAIL, 1-07/10/2024 [id number] SKIN LESIONS, OVER 4 04/06/20 24 [id number] SKIN LESIONS, OVER 4 07/10/20 24 [id number] DYSTROPHIC NAILS ANY # [id number] DYSTROPHIC NAILS ANY # Insurance Providers Payer Name Payer Address Payer Phone Subscriber Number Group Number Insured Name Patient Relationship to Insured Coverage Start Date Coverage End Date [id number] [address] [address] [place] [phone] [id number] Krystin Gotti Self - patient is the insured Medical (General) History Medical History History ICD Code Anxiety asthma Back,Hip,and Knee pain Broken bones CAD (Cholesterol) Cancer Cataracts Depression Macular degeneration nerve disorder Numbness Osteoporosis thyroid Joint implants/screws Hypertension Surgical History Surgery Date(Month/Year) hip replacement
== END 2025-06-06 11:34 | disposition home or self-care (01) ==
LOC: HO.HMCC 10:48
PROVIDERS: PCP Internal Medicine; Visit Provider Internal Medicine
DX: I10 Essential (primary) hypertension (principal); E78.9 Disorder of lipoprotein metabolism, unspecified; F33.42 Major depressive disorder, recurrent, in full remission; J43.1 Panlobular emphysema; R73.01 Impaired fasting glucose; E03.8 Other specified hypothyroidism; E55.9 Vitamin D deficiency, unspecified; G62.89 Other specified polyneuropathies; G31.9 Degenerative disease of nervous system, unspecified; J30.89 Other allergic rhinitis; J45.40 Moderate persistent asthma, uncomplicated

== ENCOUNTER → 2025-06-06 10:47 | Outpatient (BNVA) | payer MEDICARE, SELFPAY | PROVIDERS: PCP Internal Medicine; Visit Provider Internal Medicine | DX: I10 Essential (primary) hypertension (principal); E78.9 Disorder of lipoprotein metabolism, unspecified; F33.42 Major depressive disorder, recurrent, in full remission; R73.01 Impaired fasting glucose; E03.8 Other specified hypothyroidism; E55.9 Vitamin D deficiency, unspecified; G62.89 Other specified polyneuropathies; J43.1 Panlobular emphysema; G31.9 Degenerative disease of nervous system, unspecified; J30.89 Other allergic rhinitis; J45.40 Moderate persistent asthma, uncomplicated; Z87.891 Personal history of nicotine dependence | CPT/HCPCS: 99212 ==